=== PATIENT | male | born 1970 | race Caucasian/White ===

== ENCOUNTER 2023-10-22 08:30 | Outpatient (REF) | payer OTHER, SELFPAY ==
[2023-10-22 10:14] LABS: MANUAL DIFF FLAG NO
[2023-10-22 10:42] LABS: Basophils Absolute Auto 0.1 X10*3/uL (0.0-0.2); Basophils Percent Auto 0.6 % (0-2); Eosinophils Absolute Auto 0.2 X10*3/uL (0.0-0.4); Eosinophils Percent Auto 2.8 % (0-4); Hematocrit 46.3 % (42.0-52.0); Hemoglobin 16.5 g/dl (14.0-18.0); Imm Gran Abs Auto 0.02 X10*3/uL (0.00-0.03); Imm Gran Pct Auto 0.3 % (0.0-0.4); Lymphocytes Percent Auto 37.8 % (20-40); Mean Corpuscular HGB Conc 35.6 g/dl (31.0-36.0); Mean Corpuscular Hemoglobin 31.9 pg (27.0-33.0); Mean Corpuscular Volume 89.4 fL (80.0-98.0); Mean Platelet Volume 9.1 fL (9.4-12.4); Monocytes Absolute Auto 0.6 X10*3/uL (0.1-1.2); Monocytes Percent Auto 8.1 % (2-11); Neutrophils Absolute Auto 3.9 x10*3/uL (2.0-8.3); Neutrophils Percent Auto 50.4 % (45-73); Platelet Count 239 X10*3/uL (160-400); Red Blood Count 5.18 X10*6/uL (4.60-5.80); White Blood Count 7.8 X10*3/uL (4.8-10.8)
[2023-10-22 11:33] LABS: Alanine Aminotransferase 15 U/L (0-40); Albumin Level 4.2 g/dL (3.5-5.0); Alkaline Phosphatase 91 U/L (39-117); Anion Gap 13 (12-20); Aspartate Amino Transferase 14 U/L (5-37); Bilirubin Total 0.6 mg/dL (0.0-1.0); Blood Urea Nitrogen 6 mg/dL (9-16); Calcium 9.3 mg/dL (8.4-10.2); Carbon Dioxide 26 mmol/L (22-29); Chloride 106 mmol/L (96-108); Estimated Glomerular Filt Rate > 60; Glucose Random 81 mg/dL (60-115); Potassium 3.6 mmol/L (3.3-5.1); Sodium 141 mmol/L (135-145); Total Protein 7.6 g/dL (6.5-8.0)
[2023-10-23 19:14] LABS: Transglutaminase Ab IgG <1.0 U/mL; Transglutaminase IgA <1.0 U/mL
== END 2023-10-22 08:31 | disposition home or self-care (01) ==
LOC: HO.LAB 08:30
PROVIDERS: PCP Internal Medicine; Visit Provider Nurse Practitioner
DX: Z01.818 Encounter for other preprocedural examination (principal); Z91.09 Other allergy status, other than to drugs and biological substances
CPT/HCPCS: 36415; 80053; 85025; 86003; 86364

== ENCOUNTER 2023-10-22 08:30 | Outpatient (AMB) | payer OTHER, SELFPAY ==
--- NOTE | 2023-10-22 08:39 | MHC.OFFVIS ---
Vital Signs 10/22/23 08:40 Height 5 ft 10 in Weight 230 lb 9.656 oz BMI 33.1 BP 152/79 H Blood Pressure Location Lt brachial Position Sitting Pulse 93 Pulse Oximetry (%) 100 Intake Visit Reasons: Colonoscopy Screening Intake Note: Clifton presents in office today for colonoscopy screening. CC: Patient states that he has always had problems with diarrhea, especially in the mornings. He also reports seeing blood sometimes when he wipes, and occasional rectal pain and burning if I go too much or I have a large BM . He also c/o a lot of pain from my intestines , and acid reflux. 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 She is referred by Cruzito Rondon MD in [facility]. P.m. X Bipolar disorder Smoker OCD/anxiety GERD with soda RA ? Hx gallstone pancreatitis Intestinal problems in childhood ? wheat allergy Reiters syndrome Prostate problems. w ? sepsis HTN High cholesterol in past * SURGICAL HISTORY Tympanostomy tubes Tonsillectomy Cholecystectomy Pancreatic sphincterotomy * ALLERGIES Penicillin Gabapentin Paxil * [employer] LABS: None in our system TODAY'S VISIT This is a gentleman referred to us for screening colonoscopy but presents with multiple other medical concerns and problems along with a very incomplete history and a great deal of health anxiety. 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 He just moved up here from [place] to be with his sister. He has a hx of gallstone pancreatitis with removal and he is a preemie. He was allergic to wheat as a child. Since childhood he had pain across the lower abd, but this dissipated as an adult. Currently, he swings from passing small pellets in his stools to severe diarrhea. He also feels like he sweats in the buttock/rectal area but when he wipes he sees a mucus like blood. This is worse when he exerts himself, terrie when he walks for long periods of time. He has a long hx of multiple medical issues including prostatitis that he says developed in to Reiters syndrome and what sounds like sepsis. He has allergies to OJ, wheat, chocolate, sodium benzoate. He has been dieting to lose weight recently because he gained a lot of weight on zoloft. He has lost 30 lbs. This will be his 1st colonoscopy. He denies any cardiac or respiratory problems. His mother had trouble with hypotension with anesthesia, but he has not had any similar problem so far. No ID problems His mother has a hx of TA at age 78 that occluded her rectum. Trial of creon since he his some CIC, food allergy testing, ROV 6 weeks. I am concerned about giving him something more potent for diarrhea because he does seem to have an element of constipation we do not want to make this worse. Return office visit in 6 weeks to evaluate his response. [facility] Medical History (Updated 10/22/23 @ 17:01 by JUDY Nowak) Prematurity, weight 500-749 grams, with less than 24 completed weeks of gestation History of sepsis Gallstone pancreatitis Surgical History (Updated 10/22/23 @ 17:01 by JUDY Nowak) History of sphincterotomy of sphincter of Oddi History of cholecystectomy Hx of tonsillectomy Hx of tympanostomy tubes Family History Mother Diverticulitis Father Diverticulosis Colitis Paternal Aunt Breast cancer Maternal Aunt Cancer Social History Alcohol intake: current Alcohol intake frequency: holidays/special occasions only Patient Tobacco Use Status: Current everyday Tobacco user Tobacco use type: Cigarette Review of Systems Const Denies fatigue, Denies fever(s), Denies night sweats, Denies poor appetite and Reports weight loss (Intentional dieting) Eyes Details: glasses Reports requires corrective lenses ENT Reports Normal hearing present, Denies dental pain, Denies dysphagia, Denies hearing loss, Denies mouth pain, Denies odynophagia, Denies throat swelling, Denies tongue swelling and Reports other (Dentition adequate) Card Reports no additional complaints Resp Reports no additional complaints GI Details: Denies abdominal pain, Denies melena, Reports bloating, Denies hematochezia, Reports constipation, Denies GI cramping, Denies dysphagia, Denies excessive flatus, Denies early satiety, Denies heartburn, Reports diarrhea, Denies nausea, Denies odynophagia, Denies vomiting and Denies hematemesis Skin/Breast Denies pruritus, Denies lesions, Denies rash and Denies jaundice Neuro Reports Normal hearing present and Denies Abnormal speech present Psych Reports anxiety Endo Denies fatigue Aller/Immun Denies throat swelling and Denies tongue swelling Physical Exam Vital Signs: Last Vital Signs Pulse 93 10/22/23 08:40 BP 152/79 H 10/22/23 08:40 Pulse Ox 100 10/22/23 08:40 BMI result Body Mass Index 33.1 Const General: cooperative, no acute distress, well developed and well groomed Nutritional Appearance: well nourished and obese Orientation/consciousness: oriented to person, oriented to place and oriented to time Limitations: No language barrier HEENT Head: Yes normocephalic and Yes atraumatic Eyes General: appearance normal, both eyes and all related structures Pupils: Equal, round and reactive pupils present Neck Neck: Yes normal visual inspection and Yes no lymphadenopathy Thyroid: Thyroid normal Resp Effort & Inspection: normal respiratory effort and able to speak in complete sentences Auscultation: clear to auscultation bilaterally Cardio Rate: regular rate Rhythm: regular rhythm Heart sounds: Normal, physiologic split S2 sound present Peripheral pulses: radial pulses present and posterior tibial pulses present GI Inspection: No distended, No Abdominal panniculus present and Yes obesity Palpation (GI): Soft to palpation, nontender, no guarding, not rigid and No hepatosplenomegaly present Percussion: Yes normal to percussion Auscultation: normal bowel sounds Rectal Exam - Male: Yes deferred Skin General skin exam: no rashes or lesions noted, turgor normal, skin not dry, no jaundice, No spider nevi and no striae Rashes: no rashes Nails: normal Neuro General: oriented to person, oriented to place and oriented to time Cranial nerves: Yes Equal, round and reactive pupils present and Yes Normal hearing present Speech: No Abnormal speech present Extrem General: Yes normal to inspection, No clubbing, No cyanosis and No edema Psych Appearance: grossly normal and well kempt Mental Status: mental status grossly normal Speech and movement: Normal speech and movement present Affect: normal affect Attitude: cooperative Thought process: Normal thought process present, not confabulating and Perseverating thought process present Thought content: Normal thought content present Insight: Fair insight present (Psych) and Limited insight present (Psych) Judgement: Fair judgement present (Psych) and Limited judgement present (Psych) Assessment & Plan Assessment & Plan (1) Pre-op examination: Code(s): Z01.818 - Encounter for other preprocedural examination Category: Medical (2) Irritable bowel syndrome with both constipation and diarrhea: Code(s): K58.2 - Mixed irritable bowel syndrome Category: Medical Plan This is a gentleman referred to us for screening colonoscopy but presents with multiple other medical concerns and problems along with a very incomplete history and a great deal of health anxiety. 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 He just moved up here from [place] to be with his sister. He has a hx of gallstone pancreatitis with removal and he is a preemie. He was allergic to wheat as a child. Since childhood he had pain across the lower abd, but this dissipated as an adult. Currently, he swings from passing small pellets in his stools to severe diarrhea. He also feels like he sweats in the buttock/rectal area but when he wipes he sees a mucus like blood. This is worse when he exerts himself, terrie when he walks for long periods of time. He has a long hx of multiple medical issues including prostatitis that he says developed in to Reiters syndrome and what sounds like sepsis. He has allergies to OJ, wheat, chocolate, sodium benzoate. He has been dieting to lose weight recently because he gained a lot of weight on zoloft. He has lost 30 lbs. This will be his 1st colonoscopy. He denies any cardiac or respiratory problems. His mother had trouble with hypotension with anesthesia, but he has not had any similar problem so far. No ID problems His mother has a hx of TA at age 78 that occluded her rectum. Trial of creon since he his some CIC, food allergy testing, ROV 6 weeks. I am concerned about giving him something more potent for diarrhea because he does seem to have an element of constipation we do not want to make this worse. Return office visit in 6 weeks to evaluate his response. Orders: Orders Complete Blood Count Auto Diff 10/22/23 Z - Encounter for other preprocedural examination Transglutaminase IgA 10/22/23 Z.8 - Encounter for other preprocedural examination Rast Allergen 10/22/23 - Encounter for other preprocedural examination Comprehensive Met. Panel 10/22/23 - Encounter for other preprocedural examination Colonoscopy - GI Use Only 10/22/23 - Encounter for other preprocedural examination Transglutaminase Ab IgG 10/22/23 Z - Encounter for other preprocedural examination Medications: New sodium,potassium,mag sulfates 17.5-3.13-1.6 gram (Suprep Bowel Prep Kit) 480 mL orally; 354 mL 0RF Z - Encounter for other preprocedural examination [id number] 36,000-114,000- 180,000 unit (Creon) administer with meals and/or snacks 2 caps PO BID 120 caps 3RF K58.2 - Mixed irritable bowel syndrome Coding Level of Care Code New Pt Level 3 (45802) Diagnoses Pre-op examination Z.81 Irritable bowel syndrome with both constipation and diarrhea K58.2
[2023-10-22 08:40] VITALS: BP 152/79; PULSE 93; O2SAT 100; BMI 33.1
== END 2023-10-22 09:48 | disposition home or self-care (01) ==
PROVIDERS: PCP Internal Medicine; Visit Provider Nurse Practitioner
DX: Z01.818 Encounter for other preprocedural examination (principal); Z12.11 Encounter for screening for malignant neoplasm of colon; K58.2 Mixed irritable bowel syndrome; Z83.719 Family history of colon polyps, unspecified
CPT/HCPCS: S0285

== ENCOUNTER 2023-12-03 08:57 | Outpatient (AMB) | payer OTHER, SELFPAY ==
--- NOTE | 2023-12-03 09:25 | MHC.OFFVIS ---
Vital Signs 12/03/23 09:47 Height 5 ft 10 in Weight 234 lb 2.095 oz BMI 33.6 BP 137/73 Blood Pressure Location Rt brachial Position Sitting Pulse 74 Pulse Source Pulse Oximeter Intake Visit Reasons: 6 weeks follow up Intake Note: Patient in office today in 6 weeks follow up of IBS. CC: Patient states that he is feeling better after starting Creon. He reports constipation some days and diarrhea others. 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 Accompanied by: Self / Same As Patient Allergies cefadroxil [From Duricef] Allergy (Severe, Verified 12/03/23 09:49) Anaphylaxis paroxetine [From Paxil] Allergy (Severe, Verified 12/03/23 09:49) Swelling Penicillins Allergy (Severe, Verified 12/03/23 09:49) Hives gabapentin Allergy (Unknown, Verified 12/03/23 09:49) Rage SSRI Allergy (Severe, Uncoded 10/22/23 08:49) Swelling HPI HPI 6 weeks follow up: Details: Assessment & Plan (1) Pre-op examination: Code(s): Z01.818 - Encounter for other preprocedural examination Category: Medical (2) Irritable bowel syndrome with both constipation and diarrhea: Code(s): K58.2 - Mixed irritable bowel syndrome Category: Medical Plan This is a gentleman referred to us for screening colonoscopy but presents with multiple other medical concerns and problems along with a very incomplete history and a great deal of health anxiety. 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 He just moved up here from [place] to be with his sister. He has a hx of gallstone pancreatitis with removal and he is a preemie. He was allergic to wheat as a child. Since childhood he had pain across the lower abd, but this dissipated as an adult. Currently, he swings from passing small pellets in his stools to severe diarrhea. He also feels like he sweats in the buttock/rectal area but when he wipes he sees a mucus like blood. This is worse when he exerts himself, terrie when he walks for long periods of time. He has a long hx of multiple medical issues including prostatitis that he says developed in to Reiters syndrome and what sounds like sepsis. He has allergies to OJ, wheat, chocolate, sodium benzoate. He has been dieting to lose weight recently because he gained a lot of weight on zoloft. He has lost 30 lbs. This will be his 1st colonoscopy. He denies any cardiac or respiratory problems. His mother had trouble with hypotension with anesthesia, but he has not had any similar problem so far. No ID problems His mother has a hx of TA at age 78 that occluded her rectum. Trial of creon since he his some CIC, food allergy testing, ROV 6 weeks. I am concerned about giving him something more potent for diarrhea because he does seem to have an element of constipation we do not want to make this worse. Return office visit in 6 weeks to evaluate his response. Orders: Orders Complete Blood Count Auto Diff 10/22/23 Z.818 - Encounter for other preprocedural examination Transglutaminase IgA 10/22/23 Z.818 - Encounter for other preprocedural examination Rast Allergen 10/22/23 Z.818 - Encounter for other preprocedural examination Comprehensive Met. Panel 10/22/23 Z818 - Encounter for other preprocedural examination Colonoscopy - GI Use Only 10/22/23 Z.818 - Encounter for other preprocedural examination Transglutaminase Ab IgG 10/22/23 Z.818 - Encounter for other preprocedural examination Medications: New sodium,potassium,mag sulfates 17.5-3.13-1.6 gram (Suprep Bowel Prep Kit) 480 mL orally; 354 mL 0RF Z.818 - Encounter for other preprocedural examination [id number] 36,000-114,000- 180,000 unit (Creon) administer with meals and/or snacks 2 caps PO BID 120 caps 3RF K58.2 - Mixed irritable bowel syndrome LABS Laboratory Tests 10/22/23 10:10 WBC 7.8 Hgb 16.5 Hct 46.3 Plt Count 239 Estimated GFR > 60 Total Bilirubin 0.6 AST 14 ALT 15 Alkaline Phosphatase 91 Tiss Transglutamin IgG <1.0 Tiss Transglutamin IgA <1.0 RAST PANEL SHOWS NO SIGNIFICANT FOOD ALLERGY COLONOSCOPY BIOPSY TODAYS VISIT He continues on the Creon but now he is having more constipation. I think will add senna a night to give him some gentle relief. We review all the test to does not seem to show any severe concerns of food allergies. He has not yet heard about scheduling the colonoscopy. Return office visit in 5 weeks to evaluate his response [facility] Medical History Prematurity, weight 500-749 grams, with less than 24 completed weeks of gestation History of sepsis Gallstone pancreatitis Surgical History History of sphincterotomy of sphincter of Oddi History of cholecystectomy Hx of tonsillectomy Hx of tympanostomy tubes Family History Mother Diverticulitis Father Diverticulosis Colitis Paternal Aunt Breast cancer Maternal Aunt Cancer Social History Alcohol intake: current Alcohol intake frequency: holidays/special occasions only Patient Tobacco Use Status: Current everyday Tobacco user Tobacco use type: Cigarette Review of Systems Const Denies fatigue, Denies fever(s), Denies night sweats, Denies poor appetite and Denies weight loss Eyes Details: glasses Reports requires corrective lenses ENT Reports Normal hearing present, Denies dental pain, Denies dysphagia, Denies hearing loss, Denies mouth pain, Denies odynophagia, Denies throat swelling, Denies tongue swelling and Reports other (Dentition adequate) Card Reports no additional complaints Resp Reports no additional complaints GI Details: Denies abdominal pain, Denies melena, Reports bloating, Denies hematochezia, Reports constipation, Denies GI cramping, Denies dysphagia, Denies excessive flatus, Denies early satiety, Denies heartburn, Reports diarrhea, Denies nausea, Denies odynophagia, Denies vomiting and Denies hematemesis Skin/Breast Denies pruritus, Denies lesions, Denies rash and Denies jaundice Neuro Reports Normal hearing present and Denies Abnormal speech present Endo Denies fatigue Aller/Immun Denies throat swelling and Denies tongue swelling Physical Exam Vital Signs: Last Vital Signs Pulse 74 12/03/23 09:47 BP 137/73 12/03/23 09:47 BMI result Body Mass Index 33.6 Const General: cooperative, no acute distress, well developed and well groomed Nutritional Appearance: well nourished and obese Orientation/consciousness: oriented to person, oriented to place and oriented to time Limitations: No language barrier HEENT Head: Yes normocephalic and Yes atraumatic Eyes General: appearance normal, both eyes and all related structures Pupils: Equal, round and reactive pupils present Neck Neck: Yes normal visual inspection and Yes no lymphadenopathy Thyroid: Thyroid normal Resp Effort & Inspection: normal respiratory effort and able to speak in complete sentences Auscultation: clear to auscultation bilaterally Cardio Rate: regular rate Rhythm: regular rhythm Heart sounds: Normal, physiologic split S2 sound present Peripheral pulses: radial pulses present and posterior tibial pulses present GI Inspection: No distended, No Abdominal panniculus present and Yes obesity Palpation (GI): Soft to palpation, nontender, no guarding, not rigid and No hepatosplenomegaly present Percussion: Yes normal to percussion Auscultation: normal bowel sounds Rectal Exam - Male: Yes deferred Skin General skin exam: no rashes or lesions noted, turgor normal, skin not dry, no jaundice, No spider nevi and no striae Rashes: no rashes Nails: normal Neuro General: oriented to person, oriented to place and oriented to time Cranial nerves: Yes Equal, round and reactive pupils present and Yes Normal hearing present Speech: No Abnormal speech present Extrem General: Yes normal to inspection, No clubbing, No cyanosis and No edema Psych Appearance: grossly normal and well kempt Mental Status: mental status grossly normal Speech and movement: Normal speech and movement present Affect: Anxious affect present Attitude: cooperative Thought process: Normal thought process present and not confabulating Thought content: Normal thought content present Insight: Limited insight present (Psych) Judgement: Limited judgement present (Psych) Assessment & Plan Assessment & Plan (1) Irritable bowel syndrome with both constipation and diarrhea: Code(s): K58.2 - Mixed irritable bowel syndrome Category: Medical Plan He continues on the Creon but now he is having more constipation. I think will add senna a night to give him some gentle relief. We review all the test to does not seem to show any severe concerns of food allergies. He has not yet heard about scheduling the colonoscopy. Return office visit in 5 weeks to evaluate his response Medications: New sennosides (Senna Laxative) 17.2 mg (2 x 8.6 mg) PO BEDTIME 60 tabs 6RF K58.2 - Mixed irritable bowel syndrome Coding Level of Care Code Est Pt Level 3 (33280) Diagnoses Irritable bowel syndrome with both constipation and diarrhea K58.2
[2023-12-03 09:47] VITALS: BP 137/73; PULSE 74; BMI 33.6
== END 2023-12-03 10:30 | disposition home or self-care (01) ==
PROVIDERS: PCP Internal Medicine; Visit Provider Nurse Practitioner
DX: K58.2 Mixed irritable bowel syndrome (principal)
CPT/HCPCS: 99213

== ENCOUNTER 2023-12-03 08:57 | Outpatient (REF) | payer OTHER, SELFPAY ==
[2023-12-03 12:06] LABS: Cholesterol 226 mg/dL (<200); HDL Cholesterol 48 mg/dL (>40); LDL Cholesterol Calculated 150 mg/dL (<100); Triglycerides 141 mg/dL (<150)
== END 2023-12-03 08:58 | disposition home or self-care (01) ==
LOC: HO.LAB 08:57
PROVIDERS: Absent Provider Internal Medicine; PCP Internal Medicine; Visit Provider Nurse Practitioner
DX: Z00.00 Encounter for general adult medical examination without abnormal findings (principal); K58.2 Mixed irritable bowel syndrome; Z13.6 Encounter for screening for cardiovascular disorders
CPT/HCPCS: 36415; 80061

== ENCOUNTER 2024-01-09 08:28 | Outpatient (AMB) | payer OTHER, SELFPAY ==
--- NOTE | 2024-01-09 08:38 | A.OFFVIS_ITS ---
Vital Signs 01/09/24 08:48 Height 5 ft 10 in Weight 233 lb BMI 33.4 BP 124/60 Blood Pressure Location Lt brachial Position Sitting Pulse 88 Intake Visit Reasons: 5 week follow up Intake Note: Patient follow up for IBS. Patient cc: dizziness and his week a lot of BM. Denies any other GI issues. Health And Safety Director Required: No Accompanied by: Self / Same As Patient Allergies cefadroxil [From Duricef] Allergy (Severe, Verified 01/09/24 08:53) Anaphylaxis paroxetine [From Paxil] Allergy (Severe, Verified 01/09/24 08:53) Swelling Penicillins Allergy (Severe, Verified 01/09/24 08:53) Hives gabapentin Allergy (Unknown, Verified 01/09/24 08:53) Rage SSRI Allergy (Severe, Uncoded 10/22/23 08:49) Swelling HPI HPI 5 week follow up: Details: Assessment & Plan (1) Irritable bowel syndrome with both constipation and diarrhea: Code(s): K58.2 - Mixed irritable bowel syndrome Category: Medical Plan He continues on the Creon but now he is having more constipation. I think will add senna a night to give him some gentle relief. We review all the test to does not seem to show any severe concerns of food allergies. He has not yet heard about scheduling the colonoscopy. Return office visit in 5 weeks to evaluate his response Medications: New sennosides (Senna Laxative) 17.2 mg (2 x 8.6 mg) PO BEDTIME 60 tabs 6RF K58.2 - Mixed irritable bowel syndrome COLONOSCOPY BIOPSY CORRESPONDENCE On 12/03/23 @ 10:27 Katja Arias Wrote To [facility] lvm, added to spread sheet. On 12/03/23 @ 10:13 Katja Arias Wrote To [facility] Katja Arias completed item. On 12/03/23 @ 10:12 Amber Dejesus Wrote To [facility] Ordering Provider: [B] Provider Performing Procedure: [] Medical Clearance: [] Procedure and CPT: [screening, diarrhea] Anesthesia: [] Time Needed: [] Equipment: [] Order Medications: [] Medications to be Held Prior to Surgery (GLP1-Semaglutide, Dulaglutide, Liraglutide, Exenatide, Tirzepatide, Lixisenatide)(DPP4-Sitigliptin, Saxagliptin, Linagliptan, Alogliptan): [no] TODAY'S VISIT He says he has no messages from our schedulers. He is doing better on the Creon, no as sick as I was before. He is happy with this. He has been drinking more water, r/t the heat, and this will give him occasional diarrhea and fecal incontinence. He says his mother is the same, and he does not feel he needs any help with this. He has not had a message re: colonoscopy. He has upcoming foot surgery. He also has some troubles dealing with workmen's comp so he has a lot on his plate in the short term. ROv 3 mos. PFSH Medical History Prematurity, weight 500-749 grams, with less than 24 completed weeks of gestation History of sepsis Gallstone pancreatitis Surgical History History of sphincterotomy of sphincter of Oddi History of cholecystectomy Hx of tonsillectomy Hx of tympanostomy tubes Family History Mother Diverticulitis Father Diverticulosis Colitis Paternal Aunt Breast cancer Maternal Aunt Cancer Social History Alcohol intake: current Alcohol intake frequency: holidays/special occasions only Patient Tobacco Use Status: Current everyday Tobacco user Tobacco use type: Cigarette Review of Systems Const Denies fatigue, Denies fever(s), Denies night sweats, Denies poor appetite and Denies weight loss Eyes Details: glasses Reports requires corrective lenses ENT Reports Normal hearing present, Denies dental pain, Denies dysphagia, Denies hearing loss, Denies mouth pain, Denies odynophagia, Denies throat swelling, Denies tongue swelling and Reports other (Dentition adequate) Card Reports no additional complaints Resp Reports no additional complaints GI Details: Denies abdominal pain, Denies melena, Reports bloating, Denies hematochezia, Reports constipation, Denies GI cramping, Denies dysphagia, Denies excessive flatus, Denies early satiety, Denies heartburn, Reports diarrhea, Denies nausea, Denies odynophagia, Denies vomiting and Denies hematemesis Skin/Breast Denies pruritus, Denies lesions, Denies rash and Denies jaundice Neuro Reports Normal hearing present and Denies Abnormal speech present Endo Denies fatigue Aller/Immun Denies throat swelling and Denies tongue swelling Physical Exam Vital Signs: Last Vital Signs Pulse 88 01/09/24 08:48 BP 124/60 01/09/24 08:48 BMI result Body Mass Index 33.4 Const General: cooperative, no acute distress, well developed and well groomed Nutritional Appearance: well nourished and obese centrally obese Orientation/consciousness: oriented to person, oriented to place and oriented to time Limitations: No language barrier HEENT Head: Yes normocephalic and Yes atraumatic Eyes General: appearance normal, both eyes and all related structures Pupils: Equal, round and reactive pupils present Neck Neck: Yes normal visual inspection and Yes no lymphadenopathy Thyroid: Thyroid normal Resp Effort & Inspection: normal respiratory effort and able to speak in complete sentences Auscultation: clear to auscultation bilaterally Cardio Rate: regular rate Rhythm: regular rhythm Heart sounds: Normal, physiologic split S2 sound present Peripheral pulses: radial pulses present and posterior tibial pulses present GI Inspection: No distended, No Abdominal panniculus present and Yes obesity Palpation (GI): Soft to palpation, nontender, no guarding, not rigid and No hepatosplenomegaly present Percussion: Yes normal to percussion Auscultation: normal bowel sounds Rectal Exam - Male: Yes deferred Skin General skin exam: no rashes or lesions noted, turgor normal, skin not dry, no jaundice, No spider nevi and no striae Rashes: no rashes Nails: normal Neuro General: oriented to person, oriented to place and oriented to time Cranial nerves: Yes Equal, round and reactive pupils present and Yes Normal hearing present Speech: No Abnormal speech present Extrem General: Yes normal to inspection, No clubbing, No cyanosis and No edema Psych Appearance: grossly normal and well kempt Mental Status: mental status grossly normal Speech and movement: Normal speech and movement present Affect: normal affect Attitude: cooperative Thought process: Normal thought process present and not confabulating Thought content: Normal thought content present Insight: Limited insight present (Psych) Judgement: Limited judgement present (Psych) Assessment & Plan Assessment & Plan (1) Irritable bowel syndrome with both constipation and diarrhea: Code(s): K58.2 - Mixed irritable bowel syndrome Category: Medical (2) Multiple food allergies: Comment: PATIENT REPORTS ALLERGIES TO WHEAT, ORANGE JUICE, CHOCOLATE AND SODIUM BENZOATE Code(s): Z91.018 - Allergy to other foods Category: Medical Plan He says he has no messages from our schedulers. He is doing better on the Creon, no as sick as I was before. He is happy with this. He has been drinking more water, r/t the heat, and this will give him occasional diarrhea and fecal incontinence. He says his mother is the same, and he does not feel he needs any help with this. He has not had a message re: colonoscopy. He has upcoming foot surgery. He also has some troubles dealing with workmen's comp so he has a lot on his plate in the short term. ROv 3 mos. Coding Level of Care Code Est Pt Level 3 (07716) Diagnoses Irritable bowel syndrome with both constipation and diarrhea K58.2 Multiple food allergies Z91.018
[2024-01-09 08:48] VITALS: BP 124/60; PULSE 88; BMI 33.4
== END 2024-01-09 09:54 | disposition home or self-care (01) ==
PROVIDERS: PCP Internal Medicine; Visit Provider Nurse Practitioner
DX: K58.2 Mixed irritable bowel syndrome (principal); Z91.018 Allergy to other foods
CPT/HCPCS: 99213

== ENCOUNTER → 2024-01-09 08:28 | Outpatient (BNVA) | payer OTHER, SELFPAY | PROVIDERS: PCP Internal Medicine; Visit Provider Nurse Practitioner ==

== ENCOUNTER 2024-01-30 11:31 | Day surgery (SDC) | payer OTHER, SELFPAY ==
--- NOTE | 2024-01-29 09:21 | P.CONAN_ITS ---
Documented by User: Sarina Castro NP 01/29/24 09:22 HPI - Anesthesia Eval Consult details Narrative: 53yo M for Colonoscopy PMFSH Active Problems Active Problems: All Active Problems Family history of polyps in the colon (Acute) Multiple food allergies (Acute) High cholesterol (Acute) Hypertension (Acute) Prostatitis (Acute) Wyatt's disease (Acute) Anxiety (Acute) OCD (obsessive compulsive disorder) (Acute) Irritable bowel syndrome with both constipation and diarrhea (Acute) Pre-op examination (Acute) Smoker (Acute) Bipolar disorder (Acute) Past Medical History Medical History Prematurity, weight 500-749 grams, with less than 24 completed weeks of gestation History of sepsis Gallstone pancreatitis Family History Family History Mother Diverticulitis Father Diverticulosis Colitis Paternal Aunt Breast cancer Maternal Aunt Cancer Surgical History Surgical History History of sphincterotomy of sphincter of Oddi History of cholecystectomy Hx of tonsillectomy Hx of tympanostomy tubes Social History Social History Alcohol intake: current Alcohol intake frequency: holidays/special occasions only Patient Tobacco Use Status: Current everyday Tobacco user Tobacco use type: Cigarette Advance Directives: No Advance Directives Information Provided: Yes Meds Allergies Allergy/AdvReac Type Severity Reaction Status Date / Time cefadroxil [From Duricef] Allergy Severe Anaphylaxis Verified 01/09/24 08:53 paroxetine [From Paxil] Allergy Severe Swelling Verified 01/09/24 08:53 Penicillins Allergy Severe Hives Verified 01/09/24 08:53 gabapentin Allergy Unknown Rage Verified 01/09/24 08:53 SSRI Allergy Severe Swelling Uncoded 10/22/23 08:49 Home Medications ?Medication ?Instructions ?Recorded ?Confirmed ?Last Taken ?Type tamsulosin 0.4 mg capsule 0.4 mg PO DAILY 10/22/23 Unknown History carbamide peroxide 6.5 % ear drops 5 drp otic (ear) left Q12H 12/03/23 Unknown History (Debrox) cholecalciferol (vitamin D3) 50 50 mcg PO DAILY 12/03/23 Unknown History mcg (2,000 unit) capsule rizatriptan 10 mg tablet See Rx Instructions PO .COMPLEX 12/03/23 Unknown History ezetimibe 10 mg tablet (Zetia) 10 mg PO DAILY 01/09/24 Unknown History lisinopril 10 mg tablet 10 mg PO DAILY 01/09/24 Unknown History mirtazapine 15 mg tablet (Remeron) 15 mg PO DAILY 01/09/24 Unknown History rosuvastatin 10 mg tablet 10 mg PO DAILY 01/09/24 Unknown History Exam Pertinent Lab Results Pertinent Lab Results: Laboratory Tests 10/22/23 10:10 WBC 7.8 Hgb 16.5 Hct 46.3 Plt Count 239 Sodium 141 Potassium 3.6 Chloride 106 Carbon Dioxide 26 BUN 6 L Creatinine 1.03 Assessment and Plan Assessment Anesthesia Assessment: Chart Reviewed Documented by User: Manda Núñez MD 01/30/24 12:18 ON LICENSE OF [facility] Past Medical History Medical History Prematurity, weight 500-749 grams, with less than 24 completed weeks of gestation History of sepsis Gallstone pancreatitis Family History Family History Mother Diverticulitis Father Diverticulosis Colitis Paternal Aunt Breast cancer Maternal Aunt Cancer Family history of problems with anesthesia: No Surgical History Surgical History History of sphincterotomy of sphincter of Oddi History of cholecystectomy Hx of tonsillectomy Hx of tympanostomy tubes History of Problems with Anesthesia: No Social History Social History Alcohol intake: current Alcohol intake frequency: holidays/special occasions only Patient Tobacco Use Status: Current everyday Tobacco user Tobacco use type: Cigarette Advance Directives: No Advance Directives Information Provided: Yes Meds Allergies Allergy/AdvReac Type Severity Reaction Status Date / Time cefadroxil [From Duricef] Allergy Severe Anaphylaxis Verified 01/09/24 08:53 paroxetine [From Paxil] Allergy Severe Swelling Verified 01/09/24 08:53 Penicillins Allergy Severe Hives Verified 01/09/24 08:53 gabapentin Allergy Unknown Rage Verified 01/09/24 08:53 SSRI Allergy Severe Swelling Uncoded 10/22/23 08:49 Home Medications ?Medication ?Instructions ?Recorded ?Confirmed ?Last Taken ?Type tamsulosin 0.4 mg capsule 0.4 mg PO DAILY 10/22/23 Unknown History carbamide peroxide 6.5 % ear drops 5 drp otic (ear) left Q12H 12/03/23 Unknown History (Debrox) cholecalciferol (vitamin D3) 50 50 mcg PO DAILY 12/03/23 Unknown History mcg (2,000 unit) capsule rizatriptan 10 mg tablet See Rx Instructions PO .COMPLEX 12/03/23 Unknown His tory ezetimibe 10 mg tablet (Zetia) 10 mg PO DAILY 01/09/24 Unknown History lisinopril 10 mg tablet 10 mg PO DAILY 01/09/24 Unknown History mirtazapine 15 mg tablet (Remeron) 15 mg PO DAILY 01/09/24 Unknown History rosuvastatin 10 mg tablet 10 mg PO DAILY 01/09/24 Unknown History Exam Airway Mallampati Class: II (missing multiple teeth, poor dentition) TM Dist: >3cm Neck ROM: Full Heart: rrr Lungs: cta Assessment and Plan Assessment Anesthesia Assessment: Anesthesia Plan Discussed Final Anesthetic Review Family History of Problems with Anesthesia: No History of Problems with Anesthesia: No NPO: Yes ASA Class: III Final Preanesthetic Review: No Changes in Pt Med Stat, Meds/Allgs Chart Reviewed and Consent Obtained/Reviewed Patient Risk: Low Procedure Risk: Low Anesthetic Plan Anesthetic Plan: MAC: Disposition: Standard PACU
[2024-01-30 12:25] VITALS: BMI 32.8
--- NOTE | 2024-01-30 12:26 | MHC.SHP ---
Pre-Procedural Eval Section A - 24 Hr Update-Section A only Date of Service: 01/30/24 The patient is an INPATIENT: No The patient has been examined within 24 hours of the surgical procedure. The History & Physical has been completed within 30 days and I have reviewed it.: Yes Section B - Complete if H&P > 30 days Chief Complaint: screening, IBS Allergies: Allergies Allergy/AdvReac Type Severity Reaction Status Date / Time cefadroxil [From Duricef] Allergy Severe Anaphylaxis Verified 01/09/24 08:53 paroxetine [From Paxil] Allergy Severe Swelling Verified 01/09/24 08:53 Penicillins Allergy Severe Hives Verified 01/09/24 08:53 gabapentin Allergy Unknown Rage Verified 01/09/24 08:53 SSRI Allergy Severe Swelling Uncoded 10/22/23 08:49 Review of Systems Sugical H&P ROS: Negative: Constitution, Cardiovascular, Respiratory and Gastrointestinal Exam Surgical H&P Exam: Normal: Heart, Normal: Lungs, Normal: Extremities and Normal: Abdomen Plan Diagnosis/Plan: Unchanged I have reviewed the history and physical and performed a pertinent physical examination on my patient. No changes have occurred unless specified. Time Spent With Patient Time: Total time managing care of this patient today ____ minutes.
[2024-01-30 12:27] VITALS: BP 130/81; PULSE 70; RESP 16; TEMP 36.4; O2SAT 100
[2024-01-30] MEDS: Lactated Ringers 1,000 ML 100 ML IVCONT (12:47)
--- NOTE | 2024-01-30 14:41 | P.OPN-COLO_ITS ---
Colonoscopy Operative Note Operative Note Date of Service: 01/30/24 Narrative: COLONOSCOPY TILL CECUM WITH BIOPSIES AND SNARE POLYPECTOMY Pre-op diagnosis: Colon cancer screening (First colonoscopy). Post-op diagnosis:? Colon polyps, Diverticulosis, hemorrhoids Endoscopist:? Colin Enriquez MD Anesthesia:?MAC Consent: Indications for the procedure and potential complications of bleeding, perforation, reaction to medications and missed diagnosis were discussed with the patient and informed consent was obtained. Instrument: Olympus CF H 190 L variable stiffness adult colonoscope Monitoring: Vital signs and clinical assessment, intermittent blood pressure monitoring, continuous EKG monitoring, Pulse oximetry and Carbon Dioxide monitoring were done throughout the procedure. Please see anesthesia flowsheet. Colon withdrawl time was 16 minutes. Procedure: The patient was placed in the left lateral decubitis position and pre-procedure medications were administered. After a digital rectal examination of the ano-rectum, the video colonoscope was inserted into the rectum and advanced through the colon to the cecum. The colonoscope was slowly withdrawn in a retrograde panoramic fashion and the colon mucosa was carefully examined including a retroflexed view of the rectum. Findings and interventions are described below. Procedure Difficulty: without difficulty Findings: Terminal Ileum: Not evaluated Cecum: Moderated scattered diverticulosis throughout the entire colon Ascending Colon: A 12 - 15 mm sessile polyp in the proximal ascending colon - removed with a hot snare. Moderated scattered diverticulosis throughout the entire colon Transverse Colon: A 15 to 18 mm sessile polyp in the proximal TC - removed with a hot snare. Moderated scattered diverticulosis throughout the entire colon Descending Colon: Moderate diverticulosis Sigmoid Colon: Moderate diverticulosis Rectum: A 4-5 mm sessile polyp - removed with a cold biopsy Ano-rectum: Small internal hemorrhoids Colon preparation: Good despite copious irrigation and fair in the right and transverse due to adherent stools which could not be flushed off [facility] Bowel Preparation Scale Right colon; 1 Transverse colon: 1 Left colon; 2 (0 = Unprepared colon segment with mucosa not seen due to solid stool that cannot be cleared. 1 = Portion of mucosa of the colon segment seen, but other areas of the colon segment not well seen due to staining, residual stool and/or opaque liquid. 2 = Minor amount of residual staining, small fragments of stool and/or opaque liquid, but mucosa of colon segment seen well. 3 = Entire mucosa of colon segment seen well with no residual staining, small fragments of stool or opaque liquid) Impression and Post Procedure Diagnosis: Colonoscopy Findings: One small and two medium sized polyps were removed Random biopsies were obtained right and left colon to check for microscopic colitis Moderate diverticulosis seen in the entire colon Small hemorrhoids on retroflexed exam. Plan: Pt has a FU appointment on 02/18/24 with Amber Dejesus NP Repeat Colonoscopy in 1-2 years if polyps are adenomatous and due to fair prep. Above findings were reviewed with the patient and relevant handouts were given and the discharge area.
[2024-01-30 14:45] VITALS: BP 93/55; PULSE 74; RESP 16; TEMP 36.1; O2SAT 98
[2024-01-30 15:00] VITALS: BP 114/81; PULSE 69; RESP 16; TEMP 36.1; O2SAT 99
== END 2024-01-30 15:17 | disposition home or self-care (01) ==
PROVIDERS: PCP Internal Medicine; Visit Provider Internal Medicine Gastroenterology
PROC: 0DJD8ZZ Inspection of Lower Intestinal Tract, Via Natural or Artificial Opening Endoscopic (ICD-10-PCS; CPT 45378; principal; 2024-01-30 13:10)
DX: Z12.11 Encounter for screening for malignant neoplasm of colon (principal); D12.3 Benign neoplasm of transverse colon; D12.2 Benign neoplasm of ascending colon; K62.1 Rectal polyp; K57.30 Diverticulosis of large intestine without perforation or abscess without bleeding; K64.8 Other hemorrhoids; Z83.719 Family history of colon polyps, unspecified; I10 Essential (primary) hypertension; E78.00 Pure hypercholesterolemia, unspecified; K58.2 Mixed irritable bowel syndrome; N40.0 Benign prostatic hyperplasia without lower urinary tract symptoms; F17.210 Nicotine dependence, cigarettes, uncomplicated; Z79.899 Other long term (current) drug therapy; Z79.02 Long term (current) use of antithrombotics/antiplatelets
CPT/HCPCS: 45385; 45380; 88305; J2704

== ENCOUNTER → 2024-01-30 11:31 | Outpatient (BNV) | payer OTHER, SELFPAY | PROVIDERS: PCP Internal Medicine; Visit Provider Internal Medicine Gastroenterology | DX: Z12.11 Encounter for screening for malignant neoplasm of colon (principal); K63.5 Polyp of colon; D12.8 Benign neoplasm of rectum; K57.90 Diverticulosis of intestine, part unspecified, without perforation or abscess without bleeding; K64.8 Other hemorrhoids | CPT/HCPCS: 45380; 45385 ==

== ENCOUNTER 2024-02-18 09:19 | Outpatient (AMB) | payer OTHER, SELFPAY ==
[2024-02-18 09:22] VITALS: BP 107/60; PULSE 97; BMI 33.3
--- NOTE | 2024-02-18 09:22 | MHC.OFFVIS ---
Vital Signs 02/18/24 09:22 Height 5 ft 10 in Weight 232 lb 5.875 oz BMI 33.3 BP 107/60 Blood Pressure Location Rt brachial Position Sitting Pulse 97 Intake Visit Reasons: s/p colon Intake Note: Clifton presents in office today s/p colonoscopy. CC: Patient reports having nausea for about a week and a half after procedure but now he is well. Patient states he is doing well today. Transportation Planning Technician Required: No Accompanied by: Self / Same As Patient Allergies cefadroxil [From Duricef] Allergy (Severe, Verified 02/18/24 09:31) Anaphylaxis paroxetine [From Paxil] Allergy (Severe, Verified 02/18/24 09:31) Swelling Penicillins Allergy (Severe, Verified 02/18/24 09:31) Hives gabapentin Allergy (Unknown, Verified 02/18/24 09:31) Rage SSRI Allergy (Severe, Uncoded 10/22/23 08:49) Swelling HPI HPI s/p colon: Details: Assessment & Plan (1) Irritable bowel syndrome with both constipation and diarrhea: Code(s): K58.2 - Mixed irritable bowel syndrome Category: Medical (2) Multiple food allergies: Comment: PATIENT REPORTS ALLERGIES TO WHEAT, ORANGE JUICE, CHOCOLATE AND SODIUM BENZOATE Code(s): Z91.018 - Allergy to other foods Category: Medical Plan He says he has no messages from our schedulers. He is doing better on the Creon, no as sick as I was before. He is happy with this. He has been drinking more water, r/t the heat, and this will give him occasional diarrhea and fecal incontinence. He says his mother is the same, and he does not feel he needs any help with this. He has not had a message re: colonoscopy. He has upcoming foot surgery. He also has some troubles dealing with workmen's comp so he has a lot on his plate in the short term. ROv 3 mos. COLONOSCOPY 02/02/24 Findings: Terminal Ileum: Not evaluated Cecum: Moderated scattered diverticulosis throughout the entire colon Ascending Colon: A 12 - 15 mm sessile polyp in the proximal ascending colon - removed with a hot snare. Moderated scattered diverticulosis throughout the entire colon Transverse Colon: A 15 to 18 mm sessile polyp in the proximal TC - removed with a hot snare. Moderated scattered diverticulosis throughout the entire colon Descending Colon: Moderate diverticulosis Sigmoid Colon: Moderate diverticulosis Rectum: A 4-5 mm sessile polyp - removed with a cold biopsy Ano-rectum: Small internal hemorrhoids Colon preparation: Good despite copious irrigation and fair in the right and transverse due to adherent stools which could not be flushed off Impression and Post Procedure Diagnosis: Colonoscopy Findings: One small and two medium sized polyps were removed Random biopsies were obtained right and left colon to check for microscopic colitis Moderate diverticulosis seen in the entire colon Small hemorrhoids on retroflexed exam. Plan: Pt has a FU appointment on 02/18/24 with Amber Dejesus NP Repeat Colonoscopy in 1-2 years if polyps are adenomatous and due to fair prep. BIOPSY Received: 02/02/24 Diagnosis A. Colon, proximal transverse, polypectomy: Tubular adenoma; negative for high-grade dysplasia or carcinoma. B. Colon, ascending, polypectomy: Fragments of tubular adenoma; negative for high-grade dysplasia or carcinoma. C. Colon, right, biopsy: Colonic mucosa within normal limits; negative for microscopic colitis. D. Colon, left, biopsy: Colonic mucosa within normal limits; negative for microscopic colitis. E. Rectum, polypectomy: Hyperplastic mucosal polyp TODAY'S VISIT The procedure needs to be repeated in 1-2 years r/t poor prep. He had nausea for a week after the procedure, ? prep. The results were explained and the patient is agreeable to the follow-up interval as stated. The bowel pattern has returned to normal. Education was provided to tell any 1st degree relatives about their findings to be sure that they are screened by age 45. Educated that they will be put on a recall list when it is time for their repeat scope but should they move out of state or away from the hospital they will need to remember along with their primary to repeat the procedure in a timely fashion to avoid any adverse complications. He had no problem with the prep and was passing yellow water - consider low fiber diet prior next procedure. He continues on his Creon with good control with am normal BM's. Return office visit in 6 months [facility] Medical History (Updated 02/18/24 @ 10:11 by JUDY Nowak) Prematurity, weight 500-749 grams, with less than 24 completed weeks of gestation History of sepsis Gallstone pancreatitis Surgical History (Updated 02/18/24 @ 10:11 by JUDY Nowak) H/O colonoscopy History of sphincterotomy of sphincter of Oddi History of cholecystectomy Hx of tonsillectomy Hx of tympanostomy tubes Family History Mother Diverticulitis Father Diverticulosis Colitis Paternal Aunt Breast cancer Maternal Aunt Cancer Social History Alcohol intake: current Alcohol intake frequency: holidays/special occasions only Patient Tobacco Use Status: Current everyday Tobacco user Tobacco use type: Cigarette Cigarette Packs Per Day: 1 Cigarettes Per Day: 20.0 Second Hand Smoke Exposure: No Review of Systems Const Denies fatigue, Denies fever(s), Denies night sweats, Denies poor appetite and Denies weight loss Eyes Details: glasses Reports requires corrective lenses ENT Reports Normal hearing present, Denies dental pain, Denies dysphagia, Denies hearing loss, Denies mouth pain, Denies odynophagia, Denies throat swelling, Denies tongue swelling and Reports other (Dentition adequate) Card Reports no additional complaints Resp Reports no additional complaints GI Details: Denies abdominal pain, Denies melena, Denies bloating, Denies hematochezia, Denies constipation, Denies GI cramping, Denies dysphagia, Denies excessive flatus, Denies early satiety, Denies heartburn, Reports diarrhea, Reports nausea, Denies odynophagia, Denies vomiting and Denies hematemesis Skin/Breast Denies pruritus, Denies lesions, Denies rash and Denies jaundice Neuro Reports Normal hearing present and Denies Abnormal speech present Endo Denies fatigue Aller/Immun Denies throat swelling and Denies tongue swelling Physical Exam Vital Signs: Last Vital Signs Pulse 97 02/18/24 09:22 BP 107/60 02/18/24 09:22 BMI result Body Mass Index 33.3 Const General: cooperative, no acute distress, well developed and well groomed Nutritional Appearance: well nourished and obese Orientation/consciousness: oriented to person, oriented to place and oriented to time Limitations: No language barrier HEENT Head: Yes normocephalic and Yes atraumatic Eyes General: appearance normal, both eyes and all related structures Pupils: Equal, round and reactive pupils present Neck Neck: Yes normal visual inspection and Yes no lymphadenopathy Thyroid: Thyroid normal Resp Effort & Inspection: normal respiratory effort and able to speak in complete sentences Auscultation: clear to auscultation bilaterally Cardio Rate: regular rate Rhythm: regular rhythm Heart sounds: Normal, physiologic split S2 sound present Peripheral pulses: radial pulses present and posterior tibial pulses present GI Inspection: No distended, No Abdominal panniculus present and Yes obesity Palpation (GI): Soft to palpation, nontender, no guarding, not rigid and No hepatosplenomegaly present Percussion: Yes normal to percussion Auscultation: normal bowel sounds Rectal Exam - Male: Yes deferred Skin General skin exam: no rashes or lesions noted, turgor normal, skin not dry, no jaundice, No spider nevi and no striae Rashes: no rashes Nails: normal Neuro General: oriented to person, oriented to place and oriented to time Cranial nerves: Yes Equal, round and reactive pupils present and Yes Normal hearing present Speech: No Abnormal speech present Extrem General: Yes normal to inspection, No clubbing, No cyanosis and No edema Psych Appearance: grossly normal and well kempt Mental Status: mental status grossly normal Speech and movement: Normal speech and movement present Affect: normal affect Attitude: cooperative Thought process: Normal thought process present and not confabulating Thought content: Normal thought content present Insight: Fair insight present (Psych) Judgement: Fair judgement present (Psych) Results Reviewed Results Reviewed: COLONOSCOPY 02/02/24 Findings: Terminal Ileum: Not evaluated Cecum: Moderated scattered diverticulosis throughout the entire colon Ascending Colon: A 12 - 15 mm sessile polyp in the proximal ascending colon - removed with a hot snare. Moderated scattered diverticulosis throughout the entire colon Transverse Colon: A 15 to 18 mm sessile polyp in the proximal TC - removed with a hot snare. Moderated scattered diverticulosis throughout the entire colon Descending Colon: Moderate diverticulosis Sigmoid Colon: Moderate diverticulosis Rectum: A 4-5 mm sessile polyp - removed with a cold biopsy Ano-rectum: Small internal hemorrhoids Colon preparation: Good despite copious irrigation and fair in the right and transverse due to adherent stools which could not be flushed off Impression and Post Procedure Diagnosis: Colonoscopy Findings: One small and two medium sized polyps were removed Random biopsies were obtained right and left colon to check for microscopic colitis Moderate diverticulosis seen in the entire colon Small hemorrhoids on retroflexed exam. Plan: Pt has a FU appointment on 02/18/24 with Amber Dejesus NP Repeat Colonoscopy in 1-2 years if polyps are adenomatous and due to fair prep. BIOPSY Received: 02/02/24 Diagnosis A. Colon, proximal transverse, polypectomy: Tubular adenoma; negative for high-grade dysplasia or carcinoma. B. Colon, ascending, polypectomy: Fragments of tubular adenoma; negative for high-grade dysplasia or carcinoma. C. Colon, right, biopsy: Colonic mucosa within normal limits; negative for microscopic colitis. D. Colon, left, biopsy: Colonic mucosa within normal limits; negative for microscopic colitis. E. Rectum, polypectomy: Hyperplastic mucosal polyp Assessment & Plan Assessment & Plan (1) Irritable bowel syndrome with both constipation and diarrhea: Code(s): K58.2 - Mixed irritable bowel syndrome Category: Medical (2) Tubular adenoma of colon: Comment: 01/2024 scope= 2 large TA is it incomplete prep repeat in 1-2 years Code(s): D12.6 - Benign neoplasm of colon, unspecified Category: Medical Plan The procedure needs to be repeated in 1-2 years r/t poor prep. He had nausea for a week after the procedure, ? prep. The results were explained and the patient is agreeable to the follow-up interval as stated. The bowel pattern has returned to normal. Education was provided to tell any 1st degree relatives about their findings to be sure that they are screened by age 45. Educated that they will be put on a recall list when it is time for their repeat scope but should they move out of state or away from the hospital they will need to remember along with their primary to repeat the procedure in a timely fashion to avoid any adverse complications. He had no problem with the prep and was passing yellow water - consider low fiber diet prior next procedure. He continues on his Creon with good control with am normal BM's. Return office visit in 6 months Coding Level of Care Code Est Pt Level 3 (51993) Diagnoses Irritable bowel syndrome with both constipation and diarrhea K58.2 Tubular adenoma of colon D12.6
== END 2024-02-18 09:56 | disposition home or self-care (01) ==
PROVIDERS: PCP Internal Medicine; Visit Provider Nurse Practitioner
DX: K58.2 Mixed irritable bowel syndrome (principal); D12.6 Benign neoplasm of colon, unspecified
CPT/HCPCS: 99213

== ENCOUNTER → 2024-02-18 09:19 | Outpatient (BNVA) | payer OTHER, SELFPAY | PROVIDERS: PCP Internal Medicine; Visit Provider Nurse Practitioner ==

== ENCOUNTER 2024-04-09 08:25 | Outpatient (AMB) | payer OTHER, SELFPAY ==
[2024-04-09 08:45] VITALS: BP 129/68; PULSE 91; O2SAT 98; BMI 34.2
--- NOTE | 2024-04-09 08:45 | MHC.OFFVIS ---
Vital Signs 04/09/24 08:45 Height 5 ft 10 in Weight 238 lb 8.642 oz BMI 34.2 BP 129/68 Blood Pressure Location Lt brachial Position Sitting Pulse 91 Pulse Source Pulse Oximeter Pulse Oximetry (%) 98 Oxygen Delivery Method Room Air Intake Visit Reasons: 3 month follow up Intake Note: Clifton is a 54 year old male who presents to the office today for a 3 month follow up. Pt states as long as he takes his creon as scheduled he feels okay but states if he doesnt take it then that is when he gets diarrhea and stomach cramping. Pt denies any N/V/D at this time. Pt states his nausea has been under control. Allergies cefadroxil [From Duricef] Allergy (Severe, Verified 04/09/24 08:48) Anaphylaxis paroxetine [From Paxil] Allergy (Severe, Verified 04/09/24 08:48) Swelling Penicillins Allergy (Severe, Verified 04/09/24 08:48) Hives gabapentin Allergy (Unknown, Verified 04/09/24 08:48) Rage SSRI Allergy (Severe, Uncoded 04/09/24 08:48) Swelling HPI HPI 3 month follow up: Details: Assessment & Plan (1) Irritable bowel syndrome with both constipation and diarrhea: Code(s): K58.2 - Mixed irritable bowel syndrome Category: Medical (2) Tubular adenoma of colon: Comment: 01/2024 scope= 2 large TA is it incomplete prep repeat in 1-2 years Code(s): D12.6 - Benign neoplasm of colon, unspecified Category: Medical Plan The procedure needs to be repeated in 1-2 years r/t poor prep. He had nausea for a week after the procedure, ? prep. The results were explained and the patient is agreeable to the follow-up interval as stated. The bowel pattern has returned to normal. Education was provided to tell any 1st degree relatives about their findings to be sure that they are screened by age 45. Educated that they will be put on a recall list when it is time for their repeat scope but should they move out of state or away from the hospital they will need to remember along with their primary to repeat the procedure in a timely fashion to avoid any adverse complications. He had no problem with the prep and was passing yellow water - consider low fiber diet prior next procedure. He continues on his Creon with good control with am normal BM's. Return office visit in 6 months TODAY'S VISIT HE was out of his creon for a bit r/t supply problems with the pharmacies. I will give him a 90 day supply to try to help with consistency of therapy. HE is worried about his weight, he stared bowling and we discuss aquatic therapy at the [facility]. He is trying to eat better. He was only taking the creon in the AM, he thought there was a medication interaction with his PM meds, but he is reassured that here are none. ROV 6 mos [facility] Medical History (Updated 02/18/24 @ 10:11 by JUDY Nowak) Prematurity, weight 500-749 grams, with less than 24 completed weeks of gestation History of sepsis Gallstone pancreatitis Surgical History (Updated 02/18/24 @ 10:11 by JUDY Nowak) H/O colonoscopy History of sphincterotomy of sphincter of Oddi History of cholecystectomy Hx of tonsillectomy Hx of tympanostomy tubes Family History Mother Diverticulitis Father Diverticulosis Colitis Paternal Aunt Breast cancer Maternal Aunt Cancer Social History Alcohol intake: current Alcohol intake frequency: holidays/special occasions only Patient Tobacco Use Status: Current everyday Tobacco user Tobacco use type: Cigarette Cigarette Packs Per Day: 1 Cigarettes Per Day: 20.0 Second Hand Smoke Exposure: No Review of Systems Const Denies fatigue, Denies fever(s), Denies night sweats, Denies poor appetite, Reports weight gain and Denies weight loss Eyes Details: glasses Reports requires corrective lenses ENT Reports Normal hearing present, Denies dental pain, Denies dysphagia, Denies hearing loss, Denies mouth pain, Denies odynophagia, Denies throat swelling, Denies tongue swelling and Reports other (Dentition adequate) Card Reports no additional complaints Resp Reports no additional complaints GI Details: Denies abdominal pain, Denies melena, Reports bloating, Denies hematochezia, Denies constipation, Denies GI cramping, Denies dysphagia, Denies excessive flatus, Denies early satiety, Denies heartburn, Reports diarrhea, Denies nausea, Denies odynophagia, Denies vomiting and Denies hematemesis Musc Reports abnormal gait, Reports myalgias, Reports arthralgias and Reports radiating pain into limb Skin/Breast Denies pruritus, Denies lesions, Denies rash and Denies jaundice Neuro Reports Normal hearing present, Denies Abnormal speech present and Reports abnormal gait Psych Reports anxiety, Reports depression, Denies homicidal ideation and Denies suicidal ideation Endo Denies fatigue Aller/Immun Denies throat swelling and Denies tongue swelling Physical Exam Vital Signs: Last Vital Signs Pulse 91 04/09/24 08:45 BP 129/68 04/09/24 08:45 Pulse Ox 98 04/09/24 08:45 Oxygen Delivery Method Room Air 04/09/24 08:45 BMI result Body Mass Index 34.2 Const General: cooperative, no acute distress, well developed and well groomed Nutritional Appearance: well nourished and obese Orientation/consciousness: oriented to person, oriented to place and oriented to time Limitations: No language barrier HEENT Head: Yes normocephalic and Yes atraumatic Eyes General: appearance normal, both eyes and all related structures Pupils: Equal, round and reactive pupils present Neck Neck: Yes normal visual inspection and Yes no lymphadenopathy Thyroid: Thyroid normal Resp Effort & Inspection: normal respiratory effort and able to speak in complete sentences Auscultation: clear to auscultation bilaterally Cardio Rate: regular rate Rhythm: regular rhythm Heart sounds: Normal, physiologic split S2 sound present Peripheral pulses: radial pulses present and posterior tibial pulses present GI Inspection: No distended, No Abdominal panniculus present and Yes obesity Palpation (GI): Soft to palpation, nontender, no guarding, not rigid and No hepatosplenomegaly present Percussion: Yes normal to percussion Auscultation: normal bowel sounds Rectal Exam - Male: Yes deferred Skin General skin exam: no rashes or lesions noted, turgor normal, skin not dry, no jaundice, No spider nevi and no striae Rashes: no rashes Nails: normal Neuro General: oriented to person, oriented to place and oriented to time Cranial nerves: Yes Equal, round and reactive pupils present and Yes Normal hearing present Speech: No Abnormal speech present Extrem General: Yes normal to inspection, No clubbing, No cyanosis and No edema Psych Appearance: grossly normal and well kempt Mental Status: mental status grossly normal Speech and movement: Normal speech and movement present Affect: normal affect Attitude: cooperative Thought process: Normal thought process present and not confabulating Thought content: Normal thought content present Insight: Fair insight present (Psych) and Limited insight present (Psych) Judgement: Fair judgement present (Psych) and Limited judgement present (Psych) Assessment & Plan Assessment & Plan (1) Irritable bowel syndrome with both constipation and diarrhea: Code(s): K58.2 - Mixed irritable bowel syndrome Category: Medical Plan HE was out of his creon for a bit r/t supply problems with the pharmacies. I will give him a 90 day supply to try to help with consistency of therapy. HE is worried about his weight, he stared bowling and we discuss aquatic therapy at the [facility]. He is trying to eat better. He was only taking the creon in the AM, he thought there was a medication interaction with his PM meds, but he is reassured that here are none. ROV 6 mos Medications: Refilled [id number] 36,000-114,000- 180,000 unit (Creon) administer with meals and/or snacks 2 caps PO BID 360 caps 1RF K58.2 - Mixed irritable bowel syndrome Coding Level of Care Code Est Pt Level 3 (55833) Diagnoses Irritable bowel syndrome with both constipation and diarrhea K58.2
== END 2024-04-09 09:23 | disposition home or self-care (01) ==
PROVIDERS: PCP Internal Medicine; Visit Provider Nurse Practitioner
DX: K58.2 Mixed irritable bowel syndrome (principal)
CPT/HCPCS: 99213

== ENCOUNTER → 2024-04-09 08:25 | Outpatient (BNVA) | payer OTHER, SELFPAY | PROVIDERS: PCP Internal Medicine; Visit Provider Nurse Practitioner ==

== ENCOUNTER 2024-09-29 09:01 | Outpatient (REF) | payer OTHER, SELFPAY ==
--- NOTE | ~2024-09-29 | XR_ITS ---
CLINICAL HISTORY: left hip pain 2 view left femur Comparison: None Findings: No acute fracture. No dislocation. No knee effusion. No significant arthritic change. No radiopaque foreign body. IMPRESSION: 1. Normal left femur This document has been electronically signed by: Princess Mariscal MD on 09/29/2024 17:04:44
--- OUTSIDE RECORDS SUMMARY | 2024-09-29 09:37 | XMS_ITS | Clinical Summary ---
Author Organization [address] [place] [address] Address [address] [place] [address] Phone Care Team Providers Care Hr Administrative Assistant Name Role Phone Cruzito Rondon MD Primary Care Provider [phone] Allergies Active Allergy Reactions Criticality Noted Date Comments Gabapentin 11/27/2023 Paroxetine Hcl 11/27/2023 Penicillins 11/27/2023 Medications No known medications Encounters Date Type Department Care Team Description 07/07/2024 8:45 AM EST Office Visit Orthopedic Surgery [place] [address] [phone] Flaco Mccormick DPM Disorder of ligament of ankle, right (Primary Dx); Pain in both feet; Metatarsalgia of left foot; Metatarsalgia of right foot; Hammertoes of both feet from Last 3 Months Social History Tobacco Use Types Packs/Day Years Used Date Smoking Tobacco: Never Assessed Sex and Gender Information Value Date Recorded Sex Assigned at Not on file Legal Sex Male 11:05 AM EDT Gender Identity Not on file Sexual Orientation Not on file Last Filed Vital Signs Vital Sign Reading Time Taken Comments Blood Pressure - - Pulse - - Temperature - - Respiratory Rate - - Oxygen Saturation - - Inhaled Oxygen Concentration - - Weight 104 kg (230 lb) 07/07/2024 8:30 AM EST Height 178.8 cm (5' 10.39 ) 07/07/2024 8:[address] Body Mass Index 32.63 07/07/2024 8:30 AM EST Plan of Treatment Upcoming Encounters Date Type Department Care Team (Late st Contact Info) Description 10/18/2024 9:15 AM EDT Office Visit Orthopedic Surgery [facility] [address] [phone] Flaco Mccormick DPM [address] [id number] Health Maintenance Due Date Last Done Comments DTaP,Tdap,and Td Vaccines (1 - Tdap) 1991 Pneumococcal Vaccine: 50+ Years (1 of 1 - PCV) 2022 Cholesterol Screening (Lipid Panel) 02/13/2024 Colorectal Cancer Screening: Colonoscopy 02/13/2024 Depression Screening 02/13/2024 HIV Screening 02/13/2024 Hepatitis C Screening 02/13/2024 Social Influencers of Health Screening 02/13/2024 COVID-19 Vaccine (2 - 2023-2 5 season) 2024 02/02/2024 Zoster Vaccines (2 of 2) 03/29/2024 02/02/2024 Hypertension/CHF/CAD Annual BMP Blood Test 07/07/2024 Influenza Vaccine Completed 03/18/2024 Hepatitis B Vaccines Completed 06/24/2024, 02/02/2024 HIB Vaccines Aged Out No longer eligi ble based on patient's age to complete this topic HPV Vaccines Aged Out No longer eligi ble based on patient's age to complete this topic Hepatitis A Vaccines Aged Out No long er eligible based on patient's age to complete this topic IPV Vaccines Aged Out No longer eligi ble based on patient's age to complete this topic MMR Vaccines Aged Out No longer eligi ble based on patient's age to complete this topic Meningococcal ACWY Vaccine Aged Out N o longer eligible based on patient's age to complete this topic Meningococcal B Vacine Aged Out No lo nger eligible based on patient's age to complete this topic Pneumococcal Vaccine: Pediatrics (0 to 5 Years) and At-Risk Patients (6 to 64 Years) Aged Out No longer eligible b ased on patient's age to complete this topic RSV Immunization Patients Under 20 months Aged Out No longer eligible b ased on patient's age to complete this topic Varicella Vaccines Aged Out No longer eligible based on patient's age to complete this topic Insurance [employer] Care Teams Hr Administrative Assistant Relationship Specialty Start Date End Date Cruzito Rondon MD [address] [place] [id number] PCP - General 10/01/23
--- OUTSIDE RECORDS SUMMARY | 2024-09-29 09:37 | XMS_ITS ---
Author Organization [facility] Address [address] [place] [address] Care Team Providers Care Radio Performer Name Role Phone Cruzito Rondon Primary Care Provider [phone] Encounters Encounter Location Date Provider Diagnosis [facility] [address] [place] [address] 06/21/20 24 Cruzito Rondon PLAN OF TREATMENT Next Appt Details Provider Name:Cruzito abdullahi, 12/31/2024 07:45:00 AM, [address] [place] [address], [phone],
--- OUTSIDE RECORDS SUMMARY | 2024-09-29 09:37 | XMS_ITS | Patient Health Record ---
Author Organization vanessa Castro Address [address] [place] [address] Care Team Providers Care Brick Unloader Tender Name Role Phone Cruzito Rondon Primary Care Provider [phone] ALLERGIES Allergen (clinical drug ingredient) Drug/Non Drug Allergy documented on EMR Reaction Allergy Type Onset Date Status paroxetine Paxil Unknown Drug Allergy Active gabapentin Gabapentin Unknown Drug Allergy Activ e Penicillin Unknown Drug Allergy Active RESULTS Component Value Reference Range Notes Hepatic Function Panel [id number] Reviewed date:03/10/2024 09:57:06 AM Interpretation: Performing Lab:[facility], [address] [facility], Phone - [phone], Director - MDJoy Notes/Report: Albumin 4.0 3.8-4.9 g/dL Bilirubin, Total 0.4 0.0-1.2 mg/dL Bilirubin, Direct 0.11 0.00-0.40 mg/dL Alkaline Phosphatase 87 44-121 IU/L AST (SGOT) 16 0-40 IU/L ALT (SGPT) 12 0-44 IU/L Lipid Panel-[id number] Reviewed date:03/10/2024 09:57:06 AM Interpretation: Performing Lab:[facility], [address] | [address], [place], Phone - [phone], Director - MDJoy Notes/Report: Cholesterol, Total 191 100-199 mg/dL Triglycerides 105 0-149 mg/dL HDL Cholesterol 45 >39 mg/dL VLDL Cholesterol Edis 19 5-40 mg/dL LDL Chol Calc ([facility]) 127 0-99 mg/dL LDL Calc Comment: Hepatic Function Panel ([id number] Reviewed date:06/23/2024 12:47:58 PM Interpretation: Performing Lab:[facility] [place], [address] [facility], Phone - [phone], Director - Shiva Notes/Report: Albumin 4.2 3.8-4.9 g/dL Bilirubin, Total 0.4 0.0-1.2 mg/dL Bilirubin, Direct 0.14 0.00-0.40 mg/dL Alkaline Phosphatase 110 44-121 IU/L AST (SGOT) 16 0-40 IU/L ALT (SGPT) 14 0-44 IU/L Lipid Panel-[id number] Reviewed date:06/23/2024 12:47:58 PM Interpretation: Performing Lab:[facility] [place], [address] [facility], Phone - [phone], Director - Shiva Notes/Report: Cholesterol, Total 98 100-199 mg/dL Triglycerides 84 0-149 mg/dL HDL Cholesterol 42 >39 mg/dL VLDL Cholesterol Edis 17 5-40 mg/dL LDL Chol Calc ([facility]) 39 0-99 mg/dL LDL Calc Comment: Comp. Metabolic Panel ([id number] Reviewed date:10/14/2023 07:32:57 PM Interpretation: Performing Lab:[facility] [place], [address] [facility], Phone - [phone], Director - Arabellay Notes/Report: Glucose 96 70-99 mg/dL BUN 11 6-24 mg/dL Creatinine 1.11 0.76-1.27 mg/dL eGFR 80 >59 mL/min/1.73 BUN/Creatinine Ratio 10 9-20 Sodium 138 134-144 mmol/L Potassium 4.1 3.5-5.2 mmol/L Chloride 101 96-106 mmol/L Anion Gap 12.0 10.0-18.0 mmol/L Carbon Dioxide, Total 25 20-29 mmol/L Calcium 9.2 8.7-10.2 mg/dL Protein, Total 6.4 6.0-8.5 g/dL Albumin 4.1 3.8-4.9 g/dL Globulin, Total 2.3 1.5-4.5 g/dL A/G Ratio 1.8 1.2-2.2 Bilirubin, Total 0.4 0.0-1.2 mg/dL Alkaline Phosphatase 93 44-121 IU/L AST (SGOT) 16 0-40 IU/L ALT (SGPT) 13 0-44 IU/L Urinalysis, Complete-[id number] Reviewed date:10/14/2023 07:32:57 PM Interpretation: Performing Lab:[facility], [address] [place] [address], Phone - [phone], Director - Shiva Notes/Report: Specific [place] 1.015 1.005-1.030 pH 6.5 5.0-7.5 Urine-Color Yellow Yellow Appearance Clear Clear WBC Esterase Negative Negative Protein Negative Negative/Trace Glucose Negative Negative Ketones Negative Negative Occult Blood Negative Negative Bilirubin Negative Negative Urobilinogen,Semi-Qn 0.2 0.2-1.0 mg/dL Nitrite, Urine Negative Negative Microscopic Examination Micr oscopic follows if indicated. Microscopic Examination See below: Micr oscopic was indicated and was performed. WBC None seen 0 - 5 /hpf RBC 0-2 0 - 2 /hpf Epithelial Cells (non renal) None seen 0 - 10 /hpf Epithelial Cells (renal) Casts None seen None seen /lpf Cast Type Crystals Crystal Type Mucus Threads Bacteria None seen None seen/Few Yeast Trichomonas Comment CBC With Differential/Platel et-[id number] Reviewed date:10/14/2023 07:32:57 PM Interpretation: Performing Lab:[facility], [address] [facility], [place], Phone - [phone], Director - Shiva Notes/Report: WBC 6.9 3.4-10.8 x10E3/uL RBC 5.14 4.14-5.80 x10E6/uL Hemoglobin 16.1 13.0-17.7 g/dL Hematocrit 47.5 37.5-51.0 % MCV 92 79-97 fL MCH 31.3 26.6-33.0 pg MCHC 33.9 31.5-35.7 g/dL RDW 12.2 11.6-15.4 % Platelets 230 150-450 x10E3/uL Neutrophils 48 Not Estab. % Lymphs 40 Not Estab. % Monocytes 8 Not Estab. % Eos 3 Not Estab. % Basos 1 Not Estab. % Immature Cells Neutrophils (Absolute) 3.3 1.4-7.0 x10E3/uL Lymphs (Absolute) 2.8 0.7-3.1 x10E3/uL Monocytes(Absolute) 0.5 0.1-0.9 x10E3/uL Eos (Absolute) 0.2 0.0-0.4 x10E3/uL Baso (Absolute) 0.1 0.0-0.2 x10E3/uL Immature Granulocytes 0 Not Estab. % Immature Grans (Abs) 0.0 0.0-0.1 x10E3/uL [facility] Hematology Comments: Prostate-Specific Ag-[id number] Reviewed date:10/14/2023 07:32:57 PM Interpretation: Performing Lab:[facility], [address] [facility], Phone - [phone], Director - [facility] Notes/Report: Prostate Specific Ag 0.8 0.0-4.0 ng/mL Misty ECLIA methodology. . According to the [place] [employer], Serum PSA should decrease and remain at undetectable levels after radical prostatectomy. The AUA defines biochemical recurrence as an initial PSA value 0.2 ng/mL or greater followed by a subsequent confirmatory PSA value 0.2 ng/mL or greater. Values obtained with different assay methods or kits cannot be used interchangeably. Results cannot be interpreted as absolute evidence of the presence or absence of malignant disease. Vitamin D, 85-Miibotc-[id number] Reviewed date:10/14/2023 07:32:58 PM Interpretation: Performing Lab:[facility], [address] [facility], [place], Phone - [phone], Director - MDdry Notes/Report: Vitamin D, 25-Hydroxy 7.9 30.0-100.0 ng/mL Vitamin D deficiency has been defined by the [place] of Medicine and an Endocrine Society practice guideline as a level of serum 25-OH vitamin D less than 20 ng/mL (1,2). The Endocrine Society went on to further define vitamin D insufficiency as a level between 21 and 29 ng/mL (2). 1. IOM ([place] of Medicine). 2010. Dietary reference intakes for calcium and D. [place]: The National Academies Press. 2. Chris MF, Ernst [place], Funmilayo AGUILAR, et al. Evaluation, treatment, and prevention of vitamin D deficiency: an Endocrine Society clinical practice guideline. JCEM. 2010; 96(7):1911-30. TSH+Free [id number] Reviewed date:10/14/2023 07:32:58 PM Interpretation: Performing Lab:[facility], [address], [place], Phone - [phone], Director - Shiva Notes/Report: TSH 3.920 0.450-4.500 uIU/mL T4,Free(Direct) 1.15 0.82-1.77 ng/dL REASON FOR REFERRAL Reason Screening colonoscop y Diagnosis 1 Screening for colon cancer (Z12.11) Referral Organization Cruzito Rnodon Md Referring Provider First Name Cruzito Referring Provider Last Name Alcon Referring Provider Speciality Internal M edicine Referred Provider [facility], Ref erral Services Referred Provider Specialty Gastroentero logy General Notes Erica Newton 2023 09:23:02 AM EDT > P2P Sent., Camryn King 12/02/2023 09:30:57 AM EDT > Patient already has gastro Amber Dejesus. This is all set Referral Priority Urgent Reason Consultation Diagnosis 1 Polyarthralgia (M25. 50) [...] Referral Priority Routine Referral Appointment Date 12/07/2024 MEDICATIONS Medication SIG (Take, Route, Frequency, Duration) Notes Start Date End Date Status Rosuvastatin Calcium 20 MG 1 tablet Oral ly Once a day for 90 Days Active Lisinopril 10 MG TAKE 1 TABLET BY NISA TH EVERY DAY for 90 Active Vitamin D3 50 MCG (1999) 1 capsule Or ally Once a day Active Tamsulosin HCl 0.4 MG TAKE 1 CAPSULE BY MOUTH EVERY DAY for 90 Active Rizatriptan Benzoate 10 MG 1 tablet Oral ly Once a day Active Mirtazapine 15 MG 1 tablet at bedtime Orally Once a day Active oxyBUTYnin Chloride ER 10 MG 1 tablet Orally Once a day for 90 Days 09/29/2024 Active Ezetimibe 10 MG TAKE 1 TABLET BY NISA TH EVERY DAY for 90 Active Ezetimibe 10 MG 1 tablet Orally Once a day for 90 Days Active Rosuvastatin Calcium 20 MG TAKE 1 TABLET BY MOUTH EVERY DAY for 90 Active Tamsulosin HCl 0.4 MG 1 capsule Orally O nce a day Active Lisinopril 10 MG 1 tablet Orally Once a day Active Creon 6000-17268 UNIT as directed Orally Active SOCIAL HISTORY Tobacco Use: Social History [...] month (2 points) Points 2 Interpretation Negative PROBLEMS Problem Type ICD Code Onset Dates Problem Status W/U Status Risk SNOMED Code Notes Problem Vitamin D deficiency (E55.9) Active confirmed 97132210 Problem Tobacco abuse (Z72.0) Active confirmed 944231295 Problem Mixed hyperlipidemia (E78.2) Active confirmed 635940040 Problem Overactive bladder (N32.81) Active confirmed 400356467 Problem Essential hypertension (I10) Active confirmed 26036037 Problem Nicotine use disorder (F17.200) Active confirmed 06790729 Problem Ocular migraine (G43.109) Active confirmed 44526467 Problem Benign prostatic hyperplasia with lower urinary tract symptoms (N40.1) Active confirmed 5894798761690 Problem Chronic bipolar disorder (F31.9) Active confirmed 18847043 VITAL SIGNS Heart Rate 80 /min 06/29/2024 Blood pressure diastolic 80 mm Hg 06/29/2024 Height 70 in 09/29/2024 Blood pressure systolic 120 mm Hg 06/29/2024 Weight 241.4 lbs 09/29/2024 BMI 34.63 kg/m2 09/29/2024 PROCEDURES Procedure Date Ordered Date Performed Result Body Sit e EAR IRRIGATION 03/23/2024 N/A Encounters Encounter Location Date Provider Diagnosis kalyani Gloria [address] [address] 10/13/2023 Cruzito Rondon Chronic bipolar disorder F31.9 ; Acute prostatitis N41.0 ; Bunion, right foot M21.611 ; Tobacco abuse Z72.0 and Nicotine use disorder F17.200 [address]alyani Gloria [address] [address] 10/30/2023 Cruzito Rondon Md [address] [place] [id number] 11/10/2023 Cruzito Rondon Acute prostatitis N4 1.0 [facility] [place] [address] [address] 11/11/2023 Cruz[facility]ondon [facility] [address] [address] 12/02/2023 Cruzito Rondon Annual physical exam Z00.00 ; Vitamin D deficiency E55.9 ; Ocular migraine G43.109 ; Screening for colon cancer Z12.11 ; Essential hypertension I10 and Impacted cerumen of both ears H61.23 [facility] [place] [address] [address] 12/02/2023 Cruzito Rondon Essential hypertensi on I10 [address] [address] 12/08/2023 Cruzito Rondon [facility], [address] [address] 12/17/2023 Cruzito Rondon Mixed hyperlipidemia E78.2 ; Essential hypertension I10 ; Chronic bipolar disorder F31.9 ; Ocular migraine G43.109 ; Vitamin D deficiency E55.9 and Tobacco abuse Z72.0 [facility] [place], [address] [address] 01/12/2024 [facility] [address] [address] 2024 Cruzito Rondon Mixed hyperlipidemia E78.2 ; Essential hypertension I10 ; Chronic bipolar disorder F31.9 ; Ocular migraine G43.109 ; Benign prostatic hyperplasia with lower urinary tract symptoms N40.1 ; Vitamin D deficiency E55.9 and Tobacco abuse Z72.0 [facility] [place], [address] [address] 03/23/2024 Cruzito Rondon Bilateral impacted cerumen H61.[address] [address] 06/21/2024 [facility] [address] [address] 06/29/2024 Cruzito Rondon Mixed hyperlipidemia E78.2 ; Essential hypertension I10 ; Chronic bipolar disorder F31.9 ; Ocular migraine G43.109 ; Benign prostatic hyperplasia with lower urinary tract symptoms N40.1 ; Vitamin D deficiency E55.9 ; Tobacco abuse Z72.0 and Polyarthralgia M25.[address] [address] 09/29/2024 Cruzito Rodnon Mixed hyperlipidemia E78.2 ; Essential hypertension I10 ; Chronic bipolar disorder F31.9 ; Ocular migraine G43.109 ; Benign prostatic hyperplasia with lower urinary tract symptoms N40.1 ; Polyarthralgia M25.50 ; Vitamin D deficiency E55.9 ; Tobacco abuse Z72.0 ; Overactive bladder N32.81 and Left hip pain M25.552 ASSESSMENTS Encounter Date Diagnosis Assessment Notes Treatment Notes Treatment Clinical Notes 09/29/2024 Essential hypertension (ICD-10 - I10) 09/29/2024 Mixed hyperlipidemia (ICD-10 - E78.2) 10/13/2023 Chronic bipolar disorder (ICD-10 - F31.9) 06/29/2024 Essential hypertension (ICD-10 - I10) 06/29/2024 Mixed hyperlipidemia (ICD-10 - E78.2) 03/23/2024 Bilateral impacted cerumen (ICD-10 - H61.23) With patient's verbal consent bilateral ear lavage performed with good results. Over 20 minutes was spent in direct patient contact performing the procedure. M.D. examining the patient before and after the procedure. 10/13/2023 Acute prostatitis (ICD-10 - N41.0) 11/10/2023 Acute prostatitis (ICD-10 - N41.0) 11/11/2023 Acute prostatitis (ICD-10 - N41.0) 12/02/2023 Annual physical exam (ICD-10 - Z00.00) 12/02/2023 Vitamin D deficiency (ICD-10 - E55.9) 2024 Essential hypertension (ICD-10 - I10) 2024 Mixed hyperlipidemia (ICD-10 - E78.2) 12/17/2023 Essential hypertension (ICD-10 - I10) 12/02/2023 Essential hypertension (ICD-10 - I10) 12/17/2023 Mixed hyperlipidemia (ICD-10 - E78.2) 09/29/2024 Chronic bipolar disorder (ICD-10 - F31.9) 06/29/2024 Chronic bipolar disorder (ICD-10 - F31.9) 2024 Chronic bipolar disorder (ICD-10 - F31.9) 12/17/2023 Chronic bipolar disorder (ICD-10 - F31.9) 12/02/2023 Ocular migraine (ICD-10 - G43.109) 10/13/2023 Bunion, right foot (ICD-10 - M21.611) 12/17/2023 Ocular migraine (ICD-10 - G43.109) 12/02/2023 Screening for colon cancer (ICD-10 - Z12.11) 2024 Ocular migraine (ICD-10 - G43.109) 10/13/2023 Tobacco abuse (ICD-10 - Z72.0) Smoking cessation encouraged various treatment options discussed with patient. 06/29/2024 Ocular migraine (ICD-10 - G43.109) 09/29/2024 Ocular migraine (ICD-10 - G43.109) 12/17/2023 Vitamin D deficiency (ICD-10 - E55.9) 12/02/2023 Essential hypertension (ICD-10 - I10) 2024 Benign prostatic hyperplasia with lower urinary tract symptoms (ICD-10 - N40.1) 10/13/2023 Nicotine use disorder (ICD-10 - F17.200) 06/29/2024 Benign prostatic hyperplasia with lower urinary tract symptoms (ICD-10 - N40.1) 09/29/2024 Benign prostatic hyperplasia with lower urinary tract symptoms (ICD-10 - N40.1) 12/17/2023 Tobacco abuse (ICD-10 - Z72.0) Smoking cessation encouraged various treatment options discussed with patient. 12/02/2023 Impacted cerumen of both ears (ICD-10 - H61.23) 2024 Vitamin D deficiency (ICD-10 - E55.9) 06/29/2024 Vitamin D deficiency (ICD-10 - E55.9) 09/29/2024 Polyarthralgia (ICD-10 - M25.50) 2024 Tobacco abuse (ICD-10 - Z72.0) Smoking cessation encouraged various treatment options discussed with patient. 06/29/2024 Tobacco abuse (ICD-10 - Z72.0) Smoking cessation encouraged various treatment options discussed with patient. 09/29/2024 Vitamin D deficiency (ICD-10 - E55.9) 06/29/2024 Polyarthralgia (ICD-10 - M25.50) 09/29/2024 Tobacco abuse (ICD-10 - Z72.0) 09/29/2024 Overactive bladder (ICD-10 - N32.81) 09/29/2024 Left hip pain (ICD-10 - M25.552) 12/02/2023 Other This chart has been transcribed by a computerized dictation system. There are likely to be multiple cardiac technologist inaccuracies despite chart review. 10/13/2023 Other This chart has been transcribed by a computerized dictation system. There are likely to be multiple cardiac technologist inaccuracies despite chart review. 12/17/2023 Other This chart has been transcribed by a computerized dictation system. There are likely to be multiple cardiac technologist inaccuracies despite chart review. 2024 Other This chart has been transcribed by a computerized dictation system. There are likely to be multiple cardiac technologist inaccuracies despite chart review. 03/23/2024 Other This chart has been transcribed by a computerized dictation system. There are likely to be multiple cardiac technologist inaccuracies despite chart review. 06/29/2024 Other This chart has been transcribed by a computerized dictation system. There are likely to be multiple cardiac technologist inaccuracies despite chart review. 09/29/2024 Other This chart has been transcribed by a computerized dictation system. There are likely to be multiple cardiac technologist inaccuracies despite chart review. PLAN OF TREATMENT Pending Test Test Name Order Date X ray : Hip, left 09/29/2024 X ray : Femur, left 09/29/2024 GUAIAC, SINGLE SPECIMEN 12/02/2023 EAR IRRIGATION 03/23/2024 25OH VITAMIN D 09/24/2023 CBC (COMPLETE BLOOD COUNT) WITH DIFF 12/2023 COMPREHENSIVE METABOLIC PANEL 09/24/2023 PSA, SCREEN 09/24/2023 THYROID PANEL (TSH, FT4) 09/24/2023 URINALYSIS, COMPLETE 09/24/2023 Hepatic Function Panel [id number] 2024 Lipid Panel-[id number] 09/29/2024 Lipid Panel-[id number] 12/02/2023 Next Appt Details Provider Name:Cruzito Simmons Cory abdullahi, 12/31/2024 07:45:00 AM, [address] [place], [address], Insurance Providers Payer Name Payer Address Payer Phone Subscriber Number Group Number Insured Name Patient Relationship to Insured Coverage Start Date Coverage End Date [facility] [address] [place] [address] [id number] Clifton Juárez Self - patient is the insured MEDICAL (GENERAL) HISTORY Surgical History Surgery Date(Month/Year) Tubes in Ear 1971- Tonsilectomy 1976 Cholecystecomy 2015 Hospitalization History Reason Date(Month/Year) For Above Procedures"
--- OUTSIDE RECORDS SUMMARY | 2024-09-29 09:37 | XMS_ITS ---
Author Organization Alcon Castro Address [address] [place] [address] Care Team Providers Care Account Director Name Role Phone Cruzito Rondon Primary Care Provider [phone] ALLERGIES Allergen (clinical drug ingredient) Drug/Non Drug Allergy documented on EMR Reaction Allergy Type Onset Date Status paroxetine Paxil Unknown Drug Allergy Active gabapentin Gabapentin Unknown Drug Allergy Activ e Penicillin Unknown Drug Allergy Active REASON FOR REFERRAL Reason Consultation Diagnosis 1 Polyarthralgia (M25. 50) Referral Organization Cruzito Rondon Md Referring Provider First Name Cruzito Referring Provider Last Name Alocn Referring Provider Speciality Internal M edicine Referred [...] Orally O nce a day Active Creon 6000-31262 UNIT as directed Orally Active Tamsulosin HCl [...] Encounters Encounter Location Date Provider Diagnosis vanessa Castro [address] [place] [address] 06/29/2024 Cruzito Rondon Mixed hyperlipidemia E78.2 ; Essential hypertension I10 ; Chronic bipolar disorder F31.9 ; Ocular migraine G43.109 ; Benign prostatic hyperplasia with lower urinary tract symptoms N40.1 ; Vitamin D deficiency E55.9 ; Tobacco abuse Z72.0 and Polyarthralgia M25.50 ASSESSMENTS Encounter Date Diagnosis Assessment Notes Treatment Notes Treatment Clinical Notes 06/29/2024 Mixed hyperlipidemia (ICD-10 - E78.2) [...] system. There are likely to be multiple food services director inaccuracies despite chart review. PLAN OF TREATMENT [...] system. There are likely to be multiple food services director inaccuracies despite chart review. Referrals Referral Date Details 12/07/2024 12/07/2024, Consulta tielisha Next Appt Details Follow Up: 3 Months, Reason: Follow-up Provider Name:Cruzito abdullahi, 12/31/2024 07:45:00 AM, [address] [place] [address], [phone], Progress Notes * Examination Category Sub-Category Detail Notes General Examination GENERAL APPEARANCE: in no ac andrey distress, well developed, well nourished, in no [...] Bunion right foot, B union right foot Consultation Request Notes Referral Date Referring Provider Referred Provider Not ross 06/29/2024 Cruzito Rondon , Consultation
--- OUTSIDE RECORDS SUMMARY | 2024-09-29 09:37 | XMS_ITS ---
Author Name [facility] Organization Unknown Encounters Encounter Type Encounter Reason Primary Diagnosis Location Date Ambulatory [facility]. ([facility] 06/25/2024
--- OUTSIDE RECORDS SUMMARY | 2024-09-29 09:37 | XMS_ITS ---
Author Organization Alcon Castro Address [address] [place] [address] Care Team Providers Care Plater Production Name Role Phone Cruzito Rondon Primary Care Provider [phone] ALLERGIES Allergen (clinical drug ingredient) Drug/Non Drug [...] 90 Days 09/29/2024 Active Ezetimibe 10 MG 1 tablet Orally Once a day for 90 Days Active Tamsulosin HCl 0.4 MG 1 capsule Orally O nce a day Active Creon 6000-80413 UNIT as directed Orally Active Rosuvastatin Calcium 20 MG 1 tablet Oral ly Once a day for 90 Days Active Vitamin D3 50 MCG (1999 [place]) 1 capsule Or ally Once a day Active Rizatriptan Benzoate 10 MG 1 tablet Oral ly Once a day Active Mirtazapine 15 MG 1 tablet at bedtime Orally Once a day Active Lisinopril 10 [...] Notes Problem Overactive bladder (N32.81) Active confirmed 367194418 VITAL SIGNS Height 70 in 09/29/2024 Weight 241.4 lbs 09/29/2024 BMI 34.63 kg/m2 09/29/2024 Encounters Encounter Location Date Provider Diagnosis kalyani[address] [address] 09/29/2024 Cruzito Rondon Mixed hyperlipidemia E78.2 ; Essential hypertension I10 ; Chronic bipolar disorder F31.9 ; Ocular migraine G43.109 ; Benign prostatic hyperplasia with lower urinary tract symptoms N40.1 ; Polyarthralgia M25.50 ; Vitamin D deficiency E55.9 ; Tobacco abuse Z72.0 ; Overactive bladder N32.81 and Left hip pain M25.552 ASSESSMENTS Encounter Date Diagnosis Assessment Notes Treatment Notes Treatment Clinical Notes 09/29/2024 Mixed hyperlipidemia (ICD-10 - E78.2) [...] system. There are likely to be multiple ambulatory care nurse inaccuracies despite chart review. PLAN OF TREATMENT Medication Medication Name Sig Start Date Stop Date Notes oxyBUTYnin Chloride ER 10 MG 1 tablet Or ally Once a day for 90 Days 09/29/2024 Ezetimibe 10 MG 1 tablet Orally Once a day for 90 Days Tamsulosin HCl 0.4 MG 1 capsule Orally Once a day Rosuvastatin Calcium 20 MG 1 tablet Oral ly Once a day for 90 Days Vitamin D3 50 MCG (1999) 1 capsule Orally Once a day Rizatriptan Benzoate 10 MG 1 tablet Orally Once a day Mirtazapine 15 MG 1 tablet at bedtime Orally Once a day Lisinopril 10 MG 1 tablet Orally Once a day Treatment Notes Assessment Notes Other This chart has been transcribed by a computerized dictation system. There are likely to be multiple ambulatory care nurse inaccuracies despite chart review. Pending Test Test Name Order Date X ray : Hip, left 09/29/2024 X ray : Femur, left 09/29/2024 Hepatic Function Panel [id number] 2024 Lipid Panel-[id number] 09/29/2024 Next Appt Details Follow Up: 3 Months, Reason: Follow-up Provider Name:Cruzito Villarrealkalyani abdullahi, 12/31/2024 07:45:00 AM, [address] [place] [address], [phone], Progress Notes * Examination Category Sub-Category Detail Notes General Examination GENERAL APPEARANCE: in no ac [place] distress, well developed, well nourished HEAD: normocephalic, [...]
== END 2024-09-29 09:02 | disposition home or self-care (01) ==
LOC: HO.XRAY 09:01
PROVIDERS: PCP Internal Medicine; Visit Provider Internal Medicine
DX: M25.552 Pain in left hip (principal)
CPT/HCPCS: 73552

== ENCOUNTER → 2024-09-29 09:15 | Outpatient (BNV) | payer OTHER, SELFPAY | PROVIDERS: PCP Internal Medicine; Visit Provider Specialist | DX: M25.552 Pain in left hip (principal) | CPT/HCPCS: 73552 ==

== ENCOUNTER 2024-10-26 09:45 | Outpatient (AMB) | payer OTHER, SELFPAY ==
[2024-10-26 09:56] VITALS: BP 123/64; PULSE 91; BMI 34.7
--- NOTE | 2024-10-26 09:56 | MHC.OFFVIS ---
Vital Signs 10/26/24 09:56 Height 5 ft 10 in Weight 241 lb 13.553 oz BMI 34.7 BP 123/64 Blood Pressure Location Rt brachial Position Sitting Pulse 91 Intake Visit Reasons: 6 mo ibs Intake Note: Clifton returns in 6 months follow up of IBS. CC: Patient reports sometimes having abdominal cramping and fecal incontinence. Per patient he's had this problem since he was a child. Guide Cruise Required: No Accompanied by: Self / Same As Patient Allergies cefadroxil [From Duricef] Allergy (Severe, Verified 10/26/24 10:00) Anaphylaxis paroxetine [From Paxil] Allergy (Severe, Verified 10/26/24 10:00) Swelling Penicillins Allergy (Severe, Verified 10/26/24 10:00) Hives gabapentin Allergy (Unknown, Verified 10/26/24 10:00) Rage SSRI Allergy (Severe, Uncoded 04/09/24 08:48) Swelling HPI HPI 6 mo ibs: Details: Assessment & Plan (1) Irritable bowel syndrome with both constipation and diarrhea: Code(s): K58.2 - Mixed irritable bowel syndrome Category: Medical Plan HE was out of his creon for a bit r/t supply problems with the pharmacies. I will give him a 90 day supply to try to help with consistency of therapy. HE is worried about his weight, he stared bowling and we discuss aquatic therapy at the [facility]. He is trying to eat better. He was only taking the creon in the AM, he thought there was a medication interaction with his PM meds, but he is reassured that here are none. ROV 6 mos Medications: Refilled wkaolo-[id number]-ocuuxku 36,000-114,000- 180,000 unit (Creon) administer with meals and/or snacks 2 caps PO BID 360 caps 1RF K58.2 - Mixed irritable bowel syndrome TODAY'S VISIT He is still having fecal accidents/incontinence and both loose stools, cramping and he sees undigested foods. However, he is not taking his full dose of creon, only taking 1 a day. BUT he is not getting enough creon from his pharmacy and if I take 4 a day I run out. He mentions that he slipped on the ice this winter and it was causing him left-sided hip and leg pain. ROV 3 mos. [facility] Medical History Prematurity, weight 500-749 grams, with less than 24 completed weeks of gestation History of sepsis Gallstone pancreatitis Surgical History H/O colonoscopy History of sphincterotomy of sphincter of Oddi History of cholecystectomy Hx of tonsillectomy Hx of tympanostomy tubes Family History Mother Diverticulitis Father Diverticulosis Colitis Paternal Aunt Breast cancer Maternal Aunt Cancer Social History Alcohol intake: current Alcohol intake frequency: holidays/special occasions only Patient Tobacco Use Status: Current everyday Tobacco user Tobacco use type: Cigarette Cigarette Packs Per Day: 1 Cigarettes Per Day: 20.0 Second Hand Smoke Exposure: No Review of Systems Const Denies fatigue, Denies fever(s), Denies night sweats, Denies poor appetite and Denies weight loss Eyes Details: glasses Reports requires corrective lenses ENT Reports Normal hearing present, Denies dental pain, Denies dysphagia, Denies hearing loss, Denies mouth pain, Denies odynophagia, Denies throat swelling, Denies tongue swelling and Reports other (Dentition adequate) Card Reports no additional complaints Resp Reports no additional complaints GI Details: Denies abdominal pain, Denies melena, Denies bloating, Denies hematochezia, Denies constipation, Reports GI cramping, Denies dysphagia, Denies excessive flatus, Denies early satiety, Reports dyspepsia, Denies heartburn, Reports fecal incontinence, Reports diarrhea, Denies nausea, Denies odynophagia, Denies vomiting and Denies hematemesis Reports urinary incontinence Musc Reports abnormal gait and Reports arthralgias Skin/Breast Denies pruritus, Denies lesions, Denies rash and Denies jaundice Neuro Reports Normal hearing present, Denies Abnormal speech present and Reports abnormal gait Psych Reports anxiety Endo Denies fatigue Aller/Immun Denies throat swelling and Denies tongue swelling Physical Exam Vital Signs: Last Vital Signs Pulse 91 10/26/24 09:56 BP 123/64 10/26/24 09:56 BMI result Body Mass Index 34.7 Const General: cooperative, no acute distress, well developed and well groomed Nutritional Appearance: well nourished and obese Orientation/consciousness: oriented to person, oriented to place and oriented to time Limitations: No language barrier HEENT Head: Yes normocephalic and Yes atraumatic Eyes General: appearance normal, both eyes and all related structures Pupils: Equal, round and reactive pupils present Neck Neck: Yes normal visual inspection and Yes no lymphadenopathy Thyroid: Thyroid normal Resp Effort & Inspection: normal respiratory effort and able to speak in complete sentences Auscultation: clear to auscultation bilaterally Cardio Rate: regular rate Rhythm: regular rhythm Heart sounds: Normal, physiologic split S2 sound present Peripheral pulses: radial pulses present and posterior tibial pulses present GI Inspection: No distended, No Abdominal panniculus present and Yes obesity Palpation (GI): Soft to palpation, nontender, no guarding, not rigid and No hepatosplenomegaly present Percussion: Yes normal to percussion Auscultation: normal bowel sounds Rectal Exam - Male: Yes deferred Skin General skin exam: no rashes or lesions noted, turgor normal, skin not dry, no jaundice, No spider nevi and no striae Rashes: no rashes Nails: normal Neuro General: oriented to person, oriented to place and oriented to time Cranial nerves: Yes Equal, round and reactive pupils present and Yes Normal hearing present Speech: No Abnormal speech present Extrem General: Yes normal to inspection, No clubbing, No cyanosis and No edema Psych Appearance: grossly normal and well kempt Mental Status: mental status grossly normal Speech and movement: Normal speech and movement present Affect: normal affect Attitude: cooperative Thought process: not confabulating and Perseverating thought process present Thought content: Normal thought content present Insight: Limited insight present (Psych) Judgement: Limited judgement present (Psych) Assessment & Plan Assessment & Plan (1) Irritable bowel syndrome with both constipation and diarrhea: Code(s): K58.2 - Mixed irritable bowel syndrome Category: Medical Plan He is still having fecal accidents/incontinence and both loose stools, cramping and he sees undigested foods. However, he is not taking his full dose of creon, only taking 1 a day. BUT he is not getting enough creon from his pharmacy and if I take 4 a day I run out. He mentions that he slipped on the ice this winter and it was causing him left-sided hip and leg pain. ROV 3 mos. Medications: Refilled rohwlp-xelpetvv-fagboan 36,000-114,000- 180,000 unit (Creon) administer with meals and/or snacks 2 caps PO BID 360 caps 1RF K58.2 - Mixed irritable bowel syndrome Coding Level of Care Code Est Pt Level 3 (91230) Diagnoses Irritable bowel syndrome with both constipation and diarrhea K58.2
--- OUTSIDE RECORDS SUMMARY | 2024-10-26 11:09 | XMS_ITS | Clinical Summary ---
Author Organization [address] [place] [address] Address [address] [place] [address] Phone Care Team Providers Care Auto Parts Clerk Name Role Phone Cruzito Rondon MD Primary Care Provider [phone] Allergies Active Allergy Reactions Criticality Noted Date Comments Gabapentin 11/27/2023 Paroxetine Hcl 11/27/2023 Penicillins 11/27/2023 Medications No known medications Encounters Date Type Department Care Team Description 10/18/2024 9:15 AM EDT Office Visit Orthopedic Surgery [place] [id number] [phone] Flaco Mccormick DPM Disorder of ligament of [...] - - Weight 104 kg (230 lb) 10/18/2024 8:55 AM EDT Height 178.8 cm (5' 10.39 ) 10/18/2024 8:55 AM E DT Body Mass Index 32.63 10/18/2024 8:55 AM EDT Plan of Treatment Upcoming Encounters Date Type Department Care Team ([facility] Contact Info) Description 12/20/2024 8:45 AM EDT Office Visit Orthopedic Surgery [facility] [address] [phone] Flaco Mccormick DPM [address] [address] Health Maintenance Due Date Last Done Comments [...] age to complete this topic Meningococcal B Vaccine Aged Out No l onger eligible based on patient's age to complete [...] patient's age to complete this topic Insurance [facility] PLANS Care Teams Auto Parts Clerk Relationship Specialty Start Date End Date Cruzito Rondon MD [address] [place] [id number] PCP - General 10/01/23
--- OUTSIDE RECORDS SUMMARY | 2024-10-26 11:09 | XMS_ITS | Patient Health Record ---
Author Organization vanessa Castro Address [address] [place] [address] Care Team Providers Care Groundwater Consultant Name Role Phone Cruzito Rondon Primary Care Provider ALLERGIES Allergen (clinical drug ingredient) Drug/Non Drug Allergy documented on EMR Reaction Allergy Type Onset Date Status paroxetine Paxil Unknown Drug Allergy Active gabapentin Gabapentin Unknown Drug Allergy Activ e Penicillin Unknown Drug Allergy Active RESULTS Component Value Reference Range Notes Hepatic Function Panel [id number] Reviewed date:03/10/2024 09:57:06 AM Interpretation: Performing Lab:[facility], [address] [facility], Phone - [phone], Director - MDJoy Notes/Report: Albumin 4.0 3.8-4.9 g/dL Bilirubin, Total 0.4 0.0-1.2 mg/dL Bilirubin, Direct 0.11 0.00-0.40 mg/dL Alkaline Phosphatase 87 44-121 IU/L AST (SGOT) 16 0-40 IU/L ALT (SGPT) 12 0-44 IU/L Lipid Panel-[id number] Reviewed date:03/10/2024 09:57:06 AM Interpretation: Performing Lab:[facility], [address] [facility], [place], Phone - [phone], Director - MDJoy Notes/Report: Cholesterol, Total 191 100-199 mg/dL Triglycerides 105 0-149 mg/dL HDL Cholesterol 45 >39 mg/dL VLDL Cholesterol Edis 19 5-40 mg/dL LDL Chol Calc ([facility]) 127 0-99 mg/dL LDL Calc Comment: Hepatic Function Panel [id number] Reviewed date:06/23/2024 12:47:58 PM Interpretation: Performing Lab:[facility] [place], [address], [place], Phone - [phone], Director - Shiva Notes/Report: Albumin 4.2 3.8-4.9 g/dL Bilirubin, Total 0.4 0.0-1.2 mg/dL Bilirubin, Direct 0.14 0.00-0.40 mg/dL Alkaline Phosphatase 110 44-121 IU/L AST (SGOT) 16 0-40 IU/L ALT (SGPT) 14 0-44 IU/L Lipid Panel-[id number] Reviewed date:06/23/2024 12:47:58 PM Interpretation: Performing Lab:[facility] [place], [address], [place], Phone - [phone], Director - Shiva Notes/Report: Cholesterol, Total 98 100-199 mg/dL Triglycerides 84 0-149 mg/dL HDL Cholesterol 42 >39 mg/dL VLDL Cholesterol Edis 17 5-40 mg/dL LDL Chol Calc ([facility]) 39 0-99 mg/dL LDL Calc Comment: REASON FOR REFERRAL Reason Screening colonoscop y Diagnosis 1 Screening for colon cancer (Z12.11) Referral Organization Cruzito Rondon Md Referring Provider First Name Cruzito Referring Provider Last Name Alcon Referring Provider Speciality Internal M edicine Referred Provider [facility], Ref erral Services Referred Provider Specialty Gastroentero logy General Notes Erica Newton 2023 09:23:02 AM EDT > P2P Sent.Christine Susan 12/02/2023 09:30:57 AM EDT > Patient already [...] Referral Priority Routine Referral Appointment Date 12/07/2024 Reason Consultation Diagnosis 1 Left hip pain (M25.5 52) Referral Organization Cruzito Rondon Md Referring Provider First Name Cruzito Referring Provider Last Name Alcon Referring Provider Speciality Internal M edicine Referred Provider Specialty Orthopedic S urgery General Notes Skylar Frost 09/18 09:36:59 AM EDT > Faxed paperwork to Christine CHRISTIE Susan 10/11/2024 08:21:42 AM EDT > PRATIK pt # [id number] on 10/09 LVM for patient to call office and make apptMargot Kirsten 10/12/2024 01:12:05 PM EDT > Letter sent to pt. Referral Priority Routine MEDICATIONS Medication SIG (Take, Route, Frequency, Duration) Notes Start Date End Date Status Lisinopril 10 MG TAKE 1 TABLET BY [...] tablet Orally Once a day Active Creon 6000-16760 UNIT as directed Orally Active Rosuvastatin Calcium 20 MG 1 tablet Oral ly Once a day for 90 Days Active Ezetimibe 10 MG 1 tablet Orally Once a day for 90 Days Active SOCIAL HISTORY Tobacco Use: Social History [...] Problem Vitamin D deficiency (E55.9) Active confirmed 74501154 Problem Tobacco abuse (Z72.0) Active confirmed 669944075 Problem Mixed hyperlipidemia (E78.2) Active confirmed 987387317 Problem Overactive bladder (N32.81) Active confirmed 363985486 Problem Essential hypertension (I10) Active confirmed 98531931 Problem Nicotine use disorder (F17.200) Active confirmed 16389162 Problem Ocular migraine (G43.109) Active confirmed 11409571 Problem Benign prostatic hyperplasia with lower urinary tract symptoms (N40.1) Active confirmed 0802044276311 Problem Chronic bipolar disorder (F31.9) Active confirmed 48714566 VITAL SIGNS Heart Rate 78 /min 09/29/2024 Blood pressure diastolic 70 mm Hg 09/29/2024 Height 70 in 09/29/2024 Blood pressure systolic 124 mm Hg 09/29/2024 Weight 241.4 lbs 09/29/2024 BMI 34.63 kg/m2 09/29/2024 PROCEDURES Procedure Date Ordered Date Performed Result Body Sit e EAR IRRIGATION 03/23/2024 N/A Encounters Encounter Location Date Provider Diagnosis [address] [address] 10/30/2023 Cruzito Rondon Md [address] [place] [id number] 11/10/2023 Cruzito Rondon Acute prostatitis N4 1.[address] [address] 11/11/2023 Cruzito Rondon Acute prostatitis N4 1.[address] [address] 12/02/2023 Cruzito Rondon Annual physical exam Z00.00 ; Vitamin D deficiency E55.9 ; Ocular migraine G43.109 ; Screening for colon cancer Z12.11 ; Essential hypertension I10 and Impacted cerumen of both ears H61.[address] [address] 12/02/2023 Cruzito Rondon Essential hypertensi on I10 [address] [address] 12/08/[address] [address] 12/17/2023 Cruzito Rondon Mixed hyperlipidemia E78.2 ; Essential hypertension I10 ; Chronic bipolar disorder F31.9 ; Ocular migraine G43.109 ; Vitamin D deficiency E55.9 and Tobacco abuse Z72.[address] [address] 01/12/2024 Cruzito vanessa [address] [address] 2024 Cruzito Rondon Mixed hyperlipidemia E78.2 ; Essential hypertension I10 ; Chronic bipolar disorder F31.9 ; Ocular migraine G43.109 ; Benign prostatic hyperplasia with lower urinary tract symptoms N40.1 ; Vitamin D deficiency E55.9 and Tobacco abuse Z72.[address] [address] 03/23/2024 Cruzito Rondon Bilateral impacted cerumen H61.[address] [address] 06/21/2024 Cruzito Rondon [address] [address] 06/29/2024 Cruzito Rondon Mixed hyperlipidemia E78.2 ; Essential hypertension I10 ; Chronic bipolar disorder F31.9 ; Ocular migraine G43.109 ; Benign prostatic hyperplasia with lower urinary tract symptoms N40.1 ; Vitamin D deficiency E55.9 ; Tobacco abuse Z72.0 and Polyarthralgia M25.[address] [address] 09/29/2024 Cruzito Rondon Mixed hyperlipidemia E78.2 ; Essential hypertension I10 ; Chronic bipolar disorder F31.9 ; Ocular migraine G43.109 ; Benign prostatic hyperplasia with lower urinary tract symptoms N40.1 ; Polyarthralgia M25.50 ; Vitamin D deficiency E55.9 ; Tobacco abuse Z72.0 ; Overactive bladder N32.81 and Left hip pain M25.[address] [address] 09/30/2024 Cruzito Rondon ASSESSMENTS Encounter Date Diagnosis Assessment Notes Treatment Notes Treatment Clinical Notes 11/10/2023 Acute prostatitis (ICD-10 - N41.0) 11/11/2023 Acute prostatitis (ICD-10 - N41.0) 12/02/2023 Essential hypertension (ICD-10 - I10) 12/17/2023 Essential hypertension (ICD-10 - I10) 12/17/2023 Mixed hyperlipidemia (ICD-10 - E78.2) 2024 Essential hypertension (ICD-10 - I10) 2024 Mixed hyperlipidemia (ICD-10 - E78.2) 06/29/2024 Essential hypertension (ICD-10 - I10) 06/29/2024 Mixed hyperlipidemia (ICD-10 - E78.2) 09/29/2024 Essential hypertension (ICD-10 - I10) 09/29/2024 Mixed hyperlipidemia (ICD-10 - E78.2) 03/23/2024 Bilateral impacted cerumen (ICD-10 - H61.23) With patient's verbal consent bilateral ear lavage performed with good results. Over 20 minutes was spent in direct patient contact performing the procedure. M.D. examining the patient before and after the procedure. 12/02/2023 Vitamin D deficiency (ICD-10 - E55.9) 12/02/2023 Annual physical exam (ICD-10 - Z00.00) 09/29/2024 Chronic bipolar disorder (ICD-10 - F31.9) 12/02/2023 Ocular migraine (ICD-10 - G43.109) 06/29/2024 Chronic bipolar disorder (ICD-10 - F31.9) 2024 Chronic bipolar disorder (ICD-10 - F31.9) 12/17/2023 Chronic bipolar disorder (ICD-10 - F31.9) 09/29/2024 Ocular migraine (ICD-10 - G43.109) 12/02/2023 Screening for colon cancer (ICD-10 - Z12.11) 06/29/2024 Ocular migraine (ICD-10 - G43.109) 2024 Ocular migraine (ICD-10 - G43.109) 12/17/2023 Ocular migraine (ICD-10 - G43.109) 09/29/2024 Benign prostatic hyperplasia with lower urinary tract symptoms (ICD-10 - N40.1) 12/02/2023 Essential hypertension (ICD-10 - I10) 06/29/2024 Benign prostatic hyperplasia with lower urinary tract symptoms (ICD-10 - N40.1) 2024 Benign prostatic hyperplasia with lower urinary tract symptoms (ICD-10 - N40.1) 12/17/2023 Vitamin D deficiency (ICD-10 - E55.9) 09/29/2024 Polyarthralgia (ICD-10 - M25.50) 06/29/2024 Vitamin D deficiency (ICD-10 - E55.9) 12/02/2023 Impacted cerumen of both ears (ICD-10 - H61.23) 2024 Vitamin D deficiency (ICD-10 - E55.9) 12/17/2023 Tobacco abuse (ICD-10 - Z72.0) Smoking cessation encouraged various treatment options discussed with patient. 09/29/2024 Vitamin D deficiency (ICD-10 - E55.9) 06/29/2024 Tobacco abuse (ICD-10 - Z72.0) Smoking cessation encouraged various treatment options discussed with patient. 2024 Tobacco abuse (ICD-10 - Z72.0) Smoking cessation encouraged various treatment options discussed with patient. 09/29/2024 Tobacco abuse (ICD-10 - Z72.0) 06/29/2024 Polyarthralgia (ICD-10 - M25.50) 09/29/2024 Overactive bladder (ICD-10 - N32.81) 09/29/2024 Left hip pain (ICD-10 - M25.552) 12/02/2023 Other This chart has been transcribed by a computerized dictation system. There are likely to be multiple automatic maintainer inaccuracies despite chart review. 12/17/2023 Other This chart has been transcribed by a computerized dictation system. There are likely to be multiple automatic maintainer inaccuracies despite chart review. 2024 Other This chart has been transcribed by a computerized dictation system. There are likely to be multiple automatic maintainer inaccuracies despite chart review. 03/23/2024 Other This chart has been transcribed by a computerized dictation system. There are likely to be multiple automatic maintainer inaccuracies despite chart review. 06/29/2024 Other This chart has been transcribed by a computerized dictation system. There are likely to be multiple automatic maintainer inaccuracies despite chart review. 09/29/2024 Other This chart has been transcribed by a computerized dictation system. There are likely to be multiple automatic maintainer inaccuracies despite chart review. PLAN OF TREATMENT Pending Test Test Name Order Date X ray : Hip, left 09/29/2024 X ray : Femur, left 09/29/2024 GUAIAC, SINGLE SPECIMEN 12/02/2023 EAR IRRIGATION 03/23/2024 25OH VITAMIN D 09/24/2023 CBC (COMPLETE BLOOD COUNT) WITH DIFF 12/2023 COMPREHENSIVE METABOLIC PANEL 09/24/2023 PSA, SCREEN 09/24/2023 THYROID PANEL (TSH, FT4) 09/24/2023 URINALYSIS, COMPLETE 09/24/2023 Hepatic Function Panel [id number] 2024 Lipid Panel-[id number] 09/29/2024 Lipid Panel-[id number] 12/02/2023 Next Appt Details Provider Name:Cruzito abdullahi, 12/31/2024 07:45:00 AM, [address] [place] [address], [phone], Insurance Providers Payer Name Payer Address Payer Phone Subscriber Number Group Number Insured Name Patient Relationship to Insured Coverage Start Date Coverage End Date [facility] [address] [place] [phone] [id number] Clifton Juárez Self - patient is the insured MEDICAL (GENERAL) HISTORY Surgical History Surgery Date(Month/Year) Tubes in Ear 1971- Tonsilectomy 1976 Cholecystecomy 2015 Hospitalization History Reason Date(Month/Year) For Above Procedures
--- OUTSIDE RECORDS SUMMARY | 2024-10-26 11:09 | XMS_ITS ---
Author Organization Alcon Castro Address [address] [place] [phone] Care Team Providers Care Stitch Bonding Machine Tender Name Role Phone Cruzito Rondon Primary Care Provider [phone] ALLERGIES Allergen (clinical drug ingredient) Drug/Non Drug [...] Orally O nce a day Active Creon 6000-29103 UNIT as directed Orally Active Tamsulosin HCl [...] points) Points 2 Interpretation Negative VITAL SIGNS Height 70 in 06/29/2024 Weight 235.8 lbs 06/29/2024 BMI 33.83 kg/m2 06/29/2024 Blood pressure systolic 120 mm Hg 06/29/20 24 Blood pressure diastolic 80 mm Hg 024 Heart Rate 80 /min 06/29/2024 Encounters Encounter Location Date Provider Diagnosis [facility] Castro [address] [place] [address] 06/29/2024 Cruzito Rondon Mixed hyperlipidemia E78.2 ; [...] system. There are likely to be multiple casting and curing operator inaccuracies despite chart review. PLAN OF TREATMENT [...] system. There are likely to be multiple casting and curing operator inaccuracies despite chart review. Referrals Referral Date Details 12/07/2024 12/07/2024, Consulta tielisha Next Appt Details Follow Up: 3 Months, Reason: Follow-up Provider Name:Cruzito abdullahi, 12/31/2024 07:45:00 AM, [address] [place] [address], [phone], Progress Notes * Examination Category Sub-Category Detail [...]
--- OUTSIDE RECORDS SUMMARY | 2024-10-26 11:09 | XMS_ITS ---
Author Organization Alcon Castro Address [address] [place] [phone] Care Team Providers Care Printmaker Name Role Phone Cruzito Rondon Primary Care Provider ALLERGIES Allergen (clinical drug ingredient) Drug/Non Drug Allergy documented on EMR Reaction Allergy Type Onset Date Status paroxetine Paxil Unknown Drug Allergy Active gabapentin Gabapentin Unknown Drug Allergy Activ e Penicillin Unknown Drug Allergy Active REASON FOR VISIT (IN OFFICE), Follow Up, [...] day for 90 Days 09/29/2024 Active Creon 6000-77830 UNIT as directed Orally Active Rosuvastatin Calcium [...] Notes Problem Overactive bladder (N32.81) Active confirmed 298973106 VITAL SIGNS Height 70 in 09/29/2024 Weight 241.4 lbs 09/29/2024 BMI 34.63 kg/m2 09/29/2024 Blood pressure systolic 124 mm Hg 09/30/19 25 Blood pressure diastolic 70 mm Hg 025 Heart Rate 78 /min 09/29/2024 Encounters Encounter Location Date Provider Diagnosis [address] [address] 09/29/2024 Cruzito Rondon Mixed hyperlipidemia E78.2 ; [...] system. There are likely to be multiple income tax consultant inaccuracies despite chart review. PLAN OF TREATMENT [...] system. There are likely to be multiple income tax consultant inaccuracies despite chart review. Pending Test Test Name Order Date X ray : Hip, left 09/29/2024 X ray : Femur, left 09/29/2024 Hepatic Function Panel [id number] 2024 Lipid Panel-[id number] 09/29/2024 Next Appt Details Follow Up: 3 Months, Reason: Follow-up Provider Name:Cruzito abdullahi, 12/31/2024 07:45:00 AM, [address] [place] [address], [phone], Progress Notes * Examination Category Sub-Category Detail Notes General Examination GENERAL APPEARANCE: in no ac andrey distress, well developed, well nourished HEAD: normocephalic, [...]
--- OUTSIDE RECORDS SUMMARY | 2024-10-26 11:09 | XMS_ITS ---
Author Organization Alcon Castro Address [address] [place] [address] Care Team Providers Care Manager Channel Name Role Phone Cruzito Rondon Primary Care Provider REASON FOR VISIT Message Encounters Encounter Location Date Provider Diagnosis Alcon Castro [address] [address] 10/01/19 Cruzito Rondon PLAN OF TREATMENT Next Appt Details Provider Name:Cruzito abdullahi, 12/31/2024 07:45:00 AM, [address] [place] [address], [phone],
== END 2024-10-26 10:39 | disposition home or self-care (01) ==
LOC: HO.HGI 09:45
PROVIDERS: PCP Internal Medicine; Visit Provider Nurse Practitioner
DX: K58.2 Mixed irritable bowel syndrome (principal)
CPT/HCPCS: 99213

== ENCOUNTER → 2024-10-26 09:45 | Outpatient (BNVA) | payer OTHER, SELFPAY | PROVIDERS: PCP Internal Medicine; Visit Provider Nurse Practitioner ==

== ENCOUNTER 2025-01-19 09:55 | Outpatient (AMB) | payer OTHER, SELFPAY ==
--- OUTSIDE RECORDS SUMMARY | 2024-09-30 10:26 | XMS_ITS ---
Author Organization Alcon Castro Address [address] [place] [address] Care Team Providers Care A Operator Name Role Phone Cruzito Rondon Primary Care Provider [phone] REASON FOR VISIT Message Encounters Encounter Location Date Provider Diagnosis Alcon Castro [address] [address] 10/01/19 Cruzito Rondon PLAN OF TREATMENT Next Appt Details Provider Name:Cruzito abdullahi, 04/13/2025 08:45:00 AM, [address] [place] [address], [phone],
--- NOTE | 2025-01-19 09:58 | MHC.OFFVIS ---
Vital Signs 01/19/25 10:12 Height 5 ft 10 in Weight 235 lb 14.314 oz BMI 33.8 BP 130/81 Blood Pressure Location Lt brachial Position Sitting Pulse 87 Oxygen Delivery Method Room Air Intake Visit Reasons: 3m medication Intake Note: Patient follow up for IBS medication refill. Patient cc: Stomach pains, diarrhea, issues since he was last since. He said there was a possibility of a medication not digesting or the pill capsule did not digest - he seen in the toilet. Diarrhea becomes watery stools that do not stop. Ductfixing Plumber Required: No Accompanied by: Self / Same As Patient Allergies cefadroxil (From Duricef) Allergy (Severe, Verified 01/19/25 10:28) Anaphylaxis paroxetine (From Paxil) Allergy (Severe, Verified 01/19/25 10:28) Swelling Penicillins Allergy (Severe, Verified 01/19/25 10:28) Hives gabapentin Allergy (Unknown, Verified 01/19/25 10:28) Rage SSRI Allergy (Severe, Uncoded 01/19/25 10:28) Swelling HPI HPI 3m medication: Details: Assessment & Plan (1) Irritable bowel syndrome with both constipation and diarrhea: Code(s): K58.2 - Mixed irritable bowel syndrome Category: Medical Plan He is still having fecal accidents/incontinence and both loose stools, cramping and he sees undigested foods. However, he is not taking his full dose of creon, only taking 1 a day. BUT he is not getting enough creon from his pharmacy and if I take 4 a day I run out. He mentions that he slipped on the ice this winter and it was causing him left-sided hip and leg pain. ROV 3 mos. Medications: Refilled [id number] 36,000-114,000- 180,000 unit (Creon) administer with meals and/or snacks 2 caps PO BID 360 caps 1RF K58.2 - Mixed irritable bowel syndrome TODAYS VISIT He says today that he has not been doing well. About 6 mos ago he started having severe diarrhea. He has had several insults to the GI system including clindamycin for a dental infection, diclofenac, new med is losartan and his clonidine was changed to a long acting formula. He IS taking the creon as directed and getting full dose now. He is s/p jason and has a hx of PUD (? bile related). He eats twice a day and but the diarrhea is post pranidal. He tried stopping milk, coffee, and soda. Start cholestyramine and get fecal emely, CRP, prometheus IBD to exclude IBD. Negative rast allergy test. ROV 6 weeks. PFSH Medical History Prematurity, weight 500-749 grams, with less than 24 completed weeks of gestation History of sepsis Gallstone pancreatitis Surgical History H/O colonoscopy History of sphincterotomy of sphincter of Oddi History of cholecystectomy Hx of tonsillectomy Hx of tympanostomy tubes Family History Mother Diverticulitis Father Diverticulosis Colitis Paternal Aunt Breast cancer Maternal Aunt Cancer Social History Alcohol intake: current Alcohol intake frequency: holidays/special occasions only Patient Tobacco Use Status: Current everyday Tobacco user Tobacco use type: Cigarette Cigarette Packs Per Day: 1 Cigarettes Per Day: 20.0 Second Hand Smoke Exposure: No Review of Systems Const Denies fatigue, Denies fever(s), Denies night sweats, Denies poor appetite and Denies weight loss Eyes Details: glasses Reports requires corrective lenses ENT Reports Normal hearing present, Denies dental pain, Denies dysphagia, Denies hearing loss, Denies mouth pain, Denies odynophagia, Denies throat swelling, Denies tongue swelling and Reports other (Dentition adequate) Card Reports no additional complaints Resp Reports no additional complaints GI Details: Denies abdominal pain, Denies melena, Denies bloating, Denies hematochezia, Denies constipation, Denies GI cramping, Denies dysphagia, Denies excessive flatus, Denies early satiety, Denies heartburn, Reports diarrhea, Denies nausea, Denies odynophagia, Denies vomiting and Denies hematemesis Skin/Breast Denies pruritus, Denies lesions, Denies rash and Denies jaundice Neuro Reports Normal hearing present and Denies Abnormal speech present Endo Denies fatigue Aller/Immun Denies throat swelling and Denies tongue swelling Physical Exam Vital Signs: Last Vital Signs Pulse 87 01/19/25 10:12 BP 130/81 01/19/25 10:12 Oxygen Delivery Method Room Air 01/19/25 10:12 BMI result Body Mass Index 33.8 Const General: cooperative, no acute distress, well developed and well groomed Nutritional Appearance: well nourished and obese Orientation/consciousness: oriented to person, oriented to place and oriented to time Limitations: No language barrier HEENT Head: Yes normocephalic and Yes atraumatic Eyes General: appearance normal, both eyes and all related structures Pupils: Equal, round and reactive pupils present Neck Neck: Yes normal visual inspection and Yes no lymphadenopathy Thyroid: Thyroid normal Resp Effort & Inspection: normal respiratory effort and able to speak in complete sentences Auscultation: clear to auscultation bilaterally Cardio Rate: regular rate Rhythm: regular rhythm Heart sounds: Normal, physiologic split S2 sound present Peripheral pulses: radial pulses present and posterior tibial pulses present GI Inspection: No distended, No Abdominal panniculus present and Yes obesity Palpation (GI): Soft to palpation, nontender, no guarding, not rigid and No hepatosplenomegaly present Percussion: Yes normal to percussion Auscultation: normal bowel sounds Rectal Exam - Male: Yes deferred Skin General skin exam: no rashes or lesions noted, turgor normal, skin not dry, no jaundice, No spider nevi and no striae Rashes: no rashes Nails: normal Neuro General: oriented to person, oriented to place and oriented to time Cranial nerves: Yes Equal, round and reactive pupils present and Yes Normal hearing present Speech: No Abnormal speech present Extrem General: Yes normal to inspection, No clubbing, No cyanosis and No edema Psych Appearance: grossly normal and well kempt Mental Status: mental status grossly normal Speech and movement: Normal speech and movement present Affect: normal affect Attitude: cooperative Thought process: Normal thought process present and not confabulating Thought content: Normal thought content present Insight: Limited insight present (Psych) Judgement: Limited judgement present (Psych) Assessment & Plan Assessment & Plan (1) Diarrhea: Code(s): R19.7 - Diarrhea, unspecified Category: Medical Plan He says today that he has not been doing well. About 6 mos ago he started having severe diarrhea. He has had several insults to the GI system including clindamycin for a dental infection, diclofenac, new med is losartan and his clonidine was changed to a long acting formula. He IS taking the creon as directed and getting full dose now. He is s/p jason and has a hx of PUD (? bile related). He eats twice a day and but the diarrhea is post pranidal. He tried stopping milk, coffee, and soda. Start cholestyramine and get fecal emely, CRP, prometheus IBD to exclude IBD. Negative rast allergy test. ROV 6 weeks. Orders: Orders C Reactive Protein Today R19.7 - Diarrhea, unspecified Calprotectin, Fecal Today R19.7 - Diarrhea, unspecified Ova and Parasite Today R19.7 - Diarrhea, unspecified Prometheus IBD SGI Today R19.7 - Diarrhea, unspecified Medications: New cholestyramine (with sugar) 4 gram administer w/meal; avoid other meds within 1hr before or 4-6hr after dose 4 grams PO BID 60 ea 3RF R19.7 - Diarrhea, unspecified Coding Level of Care Code Est Pt Level 4 (56833) Diagnoses Diarrhea R19.7 Time Spent (min) 39
[2025-01-19 10:12] VITALS: BP 130/81; PULSE 87; BMI 33.8
--- OUTSIDE RECORDS SUMMARY | 2025-01-19 10:19 | XMS_ITS ---
Author Name [facility] Organization Unknown Encounters Encounter Type Encounter Reason Primary Diagnosis Location Date Ambulatory [facility]. ([facility]) 06/25/2024
--- OUTSIDE RECORDS SUMMARY | 2025-01-19 10:20 | XMS_ITS | Patient Health Record ---
Author Organization vanessa Castro Address [address] [place] [address] Care Team Providers Care Infrastructure Security Architect Name Role Phone Cruzito Rondon Primary Care Provider [phone] ALLERGIES Allergen (clinical drug ingredient) Drug/Non Drug Allergy documented on EMR Reaction Allergy Type Onset Date Status paroxetine Paxil Unknown Drug Allergy Active gabapentin Gabapentin Unknown Drug Allergy Activ e Penicillin Unknown Drug Allergy Active RESULTS Component Value Reference Range Notes Hepatic Function Panel ([id number] Reviewed date:06/23/2024 12:47:58 PM Interpretation: Performing Lab:[facility], [address] [facility], Phone - [phone], Director - MDJoy Notes/Report: Albumin 4.2 3.8-4.9 g/dL Bilirubin, Total 0.4 0.0-1.2 mg/dL Bilirubin, Direct 0.14 0.00-0.40 mg/dL Alkaline Phosphatase 110 44-121 IU/L AST (SGOT) 16 0-40 IU/L ALT (SGPT) 14 0-44 IU/L Lipid Panel-[id number] Reviewed date:06/23/2024 12:47:58 PM Interpretation: Performing Lab:[facility], [address] [place], [place], Phone - [phone], Director - MDJoy Notes/Report: Cholesterol, Total 98 100-199 mg/dL Triglycerides 84 0-149 mg/dL HDL Cholesterol 42 >39 mg/dL VLDL Cholesterol Edis 17 5-40 mg/dL LDL Chol Calc ([facility]) 39 0-99 mg/dL LDL Calc Comment: Hepatic Function Panel ([id number] Reviewed date:12/25/2024 10:11:26 AM Interpretation: Performing Lab:[facility] [place], [address] , [place], Phone - [phone], Director - Shiva Notes/Report: Albumin 4.4 3.8-4.9 g/dL Bilirubin, Total 0.5 0.0-1.2 mg/dL Bilirubin, Direct 0.16 0.00-0.40 mg/dL Alkaline Phosphatase 92 44-121 IU/L AST (SGOT) 16 0-40 IU/L ALT (SGPT) 19 0-44 IU/L Lipid Panel-[id number] Reviewed date:12/25/2024 10:11:26 AM Interpretation: Performing Lab:[facility] [place], [address] , [place], Phone - [phone], Director - Shiva Notes/Report: Cholesterol, Total 127 100-199 mg/dL Triglycerides 126 0-149 mg/dL HDL Cholesterol 47 >39 mg/dL VLDL Cholesterol Edis 22 5-40 mg/dL LDL Chol Calc ([facility]) 58 0-99 mg/dL LDL Calc Comment: REASON FOR REFERRAL Reason Consultation Diagnosis 1 Polyarthralgia (M25. 50) Referral Organization [facility]odn [facility] Referring Provider First Name Cruzito Referring [...] 08:21:42 AM EDT > PRATIK pt # [id number] on 10/09 LVM for patient to call office and make apptMargot Kirsten 10/12/2024 01:12:05 PM EDT > Letter sent to pt. Referral Priority Routine Reason Consultation Diagnosis 1 Overactive bladder ( N32.81) Referral Organization [facility] Referring Provider First Name Cruzito Referring Provider Last Name Alcon Referring Provider Speciality Internal M edicine Referred Provider Specialty Urology General Notes BeatrizRicha 09:19:53 AM EDT > Faxed over [facility] form , DamianascencionRicha 12/31/2024 11:42:35 AM EDT > check faxes patient was scheduled, DamiankaneRicha valerio 12/31/2024 12:45:22 PM EDT > pt was scheduled 03/30 at 9am with labs faxed Clinical Notes [facility] , Ph: [phone] F: [phone] Referral Priority Urgent Referral Appointment Date 03/30/2025 MEDICATIONS Medication SIG (Take, Route, Frequency, Duration) Notes Start Date End Date Status Tamsulosin HCl 0.4 MG 1 capsule Orally O nce a day Active Rosuvastatin Calcium 20 MG TAKE 1 TABLET BY MOUTH EVERY DAY for 90 Active Rosuvastatin Calcium 20 MG 1 tablet Orally Once a day for 90 Days Active Lisinopril 10 MG TAKE 1 TABLET BY NISA TH EVERY DAY for 90 Active Ezetimibe 10 MG 1 tablet Orally Once a day for 90 Days Active cloNIDine HCl ER 0.1 MG TAKE 1 TABLET BY MOUTH EVERY DAY IN THE MORNING Oral Active Mirtazapine 15 MG 1 tablet at bedtime Orally Once a day Active oxyBUTYnin Chloride ER 15 MG 1 tablet Orally Once a day for 30 days Not-Taking Rizatriptan Benzoate 10 MG 1 tablet Orally Once a day Active Creon 6000-20020 UNIT as directed Orally Active Vitamin D3 50 MCG (2000 UT) 1 capsule Orally Once a day Active tiZANidine HCl 2 MG Oral Active Losartan Potassium 25 MG 1 tablet Orally Once a day for 30 day(s) Active Diclofenac Sodium 75 MG Oral for 30 Active Vitamin D3 50 MCG (2000 UT) TAKE 1 CAPSULE BY MOUTH EVERY DAY [...] Problem Vitamin D deficiency (E55.9) Active confirmed 04912591 Problem Tobacco abuse (Z72.0) Active confirmed 314664799 Problem Mixed hyperlipidemia (E78.2) Active confirmed 920222460 Problem Overactive bladder (N32.81) Active confirmed 672720574 Problem Essential hypertension (I10) Active confirmed 65314772 Problem Nicotine use disorder (F17.200) Active confirmed 52999213 Problem Ocular migraine (G43.109) Active confirmed 11572134 Problem Benign prostatic hyperplasia with lower urinary tract symptoms (N40.1) Active confirmed 2624212372688 Problem Chronic bipolar disorder (F31.9) Active confirmed 31986997 Problem Autism spectrum disorder (F84.0) Active confirmed 09811182 VITAL SIGNS Heart Rate 84 /min 01/13/2025 Blood pressure diastolic 84 mm Hg 01/13/2025 Height 70 in 01/13/2025 Blood pressure systolic 138 mm Hg 01/13/2025 Weight 240 lbs 01/13/2025 BMI 34.43 kg/m2 01/13/2025 PROCEDURES Procedure Date Ordered Date Performed Result Body Sit e EAR IRRIGATION 03/23/2024 N/A Encounters Encounter Location Date Provider Diagnosis [address] [address] 2024 Cruzito Rondon Mixed hyperlipidemia E78.2 ; Essential hypertension I10 ; Chronic bipolar disorder F31.9 ; Ocular migraine G43.109 ; Benign prostatic hyperplasia with lower urinary tract symptoms N40.1 ; Vitamin D deficiency E55.9 and Tobacco abuse Z72.[address] [address] 03/23/2024 Cruzito Rondon Bilateral impacted cerumen H61.[address] [address] 06/21/[address] [address] 06/29/2024 Cruzito Rondon Mixed hyperlipidemia E78.2 ; Essential hypertension I10 ; Chronic bipolar disorder F31.9 ; Ocular migraine G43.109 ; Benign prostatic hyperplasia with lower urinary tract symptoms N40.1 ; Vitamin D deficiency E55.9 ; Tobacco abuse Z72.0 and Polyarthralgia M25.[address] [address] 09/29/2024 Cruzito Rondon Mixed hyperlipidemia E78.2 ; Essential hypertension I10 ; Chronic bipolar disorder F31.9 ; Ocular migraine G43.109 ; Benign prostatic hyperplasia with lower urinary tract symptoms N40.1 ; Polyarthralgia M25.50 ; Vitamin D deficiency E55.9 ; Tobacco abuse Z72.0 ; Overactive bladder N32.81 and Left hip pain M25.[address] [address] 09/30/[address] [address] 12/31/2024 Cruzito Rondon Mixed hyperlipidemia E78.2 ; Essential hypertension I10 ; Chronic bipolar disorder F31.9 ; Ocular migraine G43.109 ; Benign prostatic hyperplasia with lower urinary tract symptoms N40.1 ; Polyarthralgia M25.50 ; Overactive bladder N32.81 ; Left hip pain M25.552 ; Vitamin D deficiency E55.9 ; Tobacco abuse Z72.0 ; Other specified cough R05.8 and Autism spectrum disorder F84.[address] [address] 01/13/2025 Cruzito Rondon Essential hypertensi on I10 [...] I10) 01/13/2025 Overactive bladder (ICD-10 - N32.81) 12/31/2024 Essential hypertension (ICD-10 - I10) 12/31/2024 Mixed hyperlipidemia (ICD-10 - E78.2) 09/29/2024 Essential hypertension (ICD-10 - I10) 09/29/2024 Mixed hyperlipidemia (ICD-10 - E78.2) 06/29/2024 Essential hypertension (ICD-10 - I10) 06/29/2024 Mixed hyperlipidemia (ICD-10 - E78.2) 03/23/2024 Bilateral impacted cerumen (ICD-10 - H61.23) With patient's verbal consent bilateral ear lavage performed with good results. Over 20 minutes was spent in direct patient contact performing the procedure. M.D. examining the patient before and after the procedure. 2024 Essential hypertension (ICD-10 - I10) 2024 Mixed hyperlipidemia (ICD-10 - E78.2) 01/13/2025 Mixed hyperlipidemia (ICD-10 - E78.2) 12/31/2024 Chronic bipolar disorder (ICD-10 - F31.9) 09/29/2024 Chronic bipolar disorder (ICD-10 - F31.9) 06/29/2024 Chronic bipolar disorder (ICD-10 - F31.9) 2024 Chronic bipolar disorder (ICD-10 - F31.9) 2024 Ocular migraine (ICD-10 - G43.109) 06/29/2024 Ocular migraine (ICD-10 - G43.109) 01/13/2025 Chronic bipolar disorder (ICD-10 - F31.9) 09/29/2024 Ocular migraine (ICD-10 - G43.109) 12/31/2024 Ocular migraine (ICD-10 - G43.109) 2024 Benign prostatic hyperplasia with lower urinary tract symptoms (ICD-10 - N40.1) 06/29/2024 Benign prostatic hyperplasia with lower urinary tract symptoms (ICD-10 - N40.1) 01/13/2025 Ocular migraine (ICD-10 - G43.109) 09/29/2024 Benign prostatic hyperplasia with lower urinary tract symptoms (ICD-10 - N40.1) 12/31/2024 Benign prostatic hyperplasia with lower urinary tract symptoms (ICD-10 - N40.1) 2024 Vitamin D deficiency (ICD-10 - E55.9) 06/29/2024 Vitamin D deficiency (ICD-10 - E55.9) 09/29/2024 Polyarthralgia (ICD-10 - M25.50) 01/13/2025 Benign prostatic hyperplasia with lower urinary tract symptoms (ICD-10 - N40.1) 12/31/2024 Polyarthralgia (ICD-10 - M25.50) 2024 Tobacco abuse (ICD-10 - Z72.0) Smoking cessation encouraged various treatment options discussed with patient. 06/29/2024 Tobacco abuse (ICD-10 - Z72.0) Smoking cessation encouraged various treatment options discussed with patient. 09/29/2024 Vitamin D deficiency (ICD-10 - E55.9) 12/31/2024 Overactive bladder (ICD-10 - N32.81) 01/13/2025 Polyarthralgia (ICD-10 - M25.50) 01/13/2025 Autism spectrum disorder (ICD-10 - F84.0) 12/31/2024 Left hip pain (ICD-10 - M25.552) 09/29/2024 Tobacco abuse (ICD-10 - Z72.0) 06/29/2024 Polyarthralgia (ICD-10 - M25.50) 01/13/2025 Vitamin D deficiency (ICD-10 - E55.9) 12/31/2024 Vitamin D deficiency (ICD-10 - E55.9) 09/29/2024 Overactive bladder (ICD-10 - N32.81) 01/13/2025 Tobacco abuse (ICD-10 - Z72.0) 12/31/2024 Tobacco abuse (ICD-10 - Z72.0) 09/29/2024 Left hip pain (ICD-10 - M25.552) 12/31/2024 Other specified cough (ICD-10 - R05.8) 12/31/2024 Autism spectrum disorder (ICD-10 - F84.0) 2024 Other This chart has been transcribed by a computerized dictation system. There are likely to be multiple universal branch consultant inaccuracies despite chart review. 03/23/2024 Other This chart has been transcribed by a computerized dictation system. There are likely to be multiple universal branch consultant inaccuracies despite chart review. 06/29/2024 Other This chart has been transcribed by a computerized dictation system. There are likely to be multiple universal branch consultant inaccuracies despite chart review. 09/29/2024 Other This chart has been transcribed by a computerized dictation system. There are likely to be multiple universal branch consultant inaccuracies despite chart review. 12/31/2024 Other This chart has been transcribed by a computerized dictation system. There are likely to be multiple universal branch consultant inaccuracies despite chart review. 01/13/2025 Other This chart has been transcribed by a computerized dictation system. There are likely to be multiple universal branch consultant inaccuracies despite chart review. PLAN OF TREATMENT Pending Test Test Name Order Date X ray : Hip, left 09/29/2024 X ray : Femur, left 09/29/2024 GUAIAC, SINGLE SPECIMEN 12/02/2023 EAR IRRIGATION 03/23/2024 25OH VITAMIN D 09/24/2023 CBC (COMPLETE BLOOD COUNT) WITH DIFF 12/2023 COMPREHENSIVE METABOLIC PANEL 09/24/2023 PSA, SCREEN 09/24/2023 THYROID PANEL (TSH, FT4) 09/24/2023 URINALYSIS, COMPLETE 09/24/2023 Lipid Panel-[id number] 12/02/2023 Next Appt Details Provider Name:Cruzito abdullahi, 04/13/2025 08:45:00 AM, [address] [place], [phone], Insurance Providers Payer Name Payer Address Payer Phone Subscriber Number Group Number Insured Name Patient Relationship to Insured Coverage Start Date Coverage End Date [facility] [address] [place] [address] [phone] [id number] Clifton Juárez Self - patient is the insured MEDICAL (GENERAL) HISTORY Surgical History Surgery Date(Month/Year) Tubes in Ear 1971- Tonsilectomy 1976 Cholecystecomy 2016 Hospitalization History Reason Date(Month/Year) For Above Procedures
--- OUTSIDE RECORDS SUMMARY | 2025-01-19 10:20 | XMS_ITS | Clinical Summary ---
Author Organization [address] [place] [address] Address [address] [place] [address] Phone Care Team Providers Care Hand Violin Maker Name Role Phone Cruzito Rondon MD Primary Care Provider [phone] Allergies Active Allergy Reactions Criticality Noted Date Comments Gabapentin 11/27/2023 Paroxetine Hcl 11/27/2023 Penicillins 11/27/2023 Medications No known medications Encounters Date Type Department Care Team Description 12/20/2024 8:45 AM EDT Office Visit Orthopedic Surgery [place] [address] [phone] Flaco Mccormick DPM Disorder of ligament of ankle, right (Primary Dx); Pain in both feet; Metatarsalgia of right foot; Hammertoes of both [...] Upcoming Encounters Date Type Department Care Team ([facility] st Contact Info) Description 03/22/2025 9:00 AM EDT Office Visit Orthopedic Surgery [facility] [address] [phone] Flaco Mccormick DPM [address] [address] Health Maintenance Due Date Last Done Comments [...] Annual BMP Blood Test 07/07/2024 Influenza Vaccine (#1) 2025 03/18/2024 Hepatitis B Vaccines Completed 06/24/2024, 02/02/2024 [...] patient's age to complete this topic Insurance [facility] Care Teams Hand Violin Maker Relationship Specialty Start Date End Date Cruzito Rondon MD [address] [place] [id number] PCP - General 10/01/23
== END 2025-01-19 11:02 | disposition home or self-care (01) ==
LOC: HO.HGI 09:56
PROVIDERS: PCP Internal Medicine; Visit Provider Nurse Practitioner
DX: R19.7 Diarrhea, unspecified (principal)
CPT/HCPCS: 99214

== ENCOUNTER 2025-01-19 09:55 | Outpatient (REF) | payer OTHER, SELFPAY ==
[2025-01-26 19:53] LABS: Calprotectin, Fecal 105 mcg/g
== END 2025-01-19 09:56 | disposition home or self-care (01) ==
LOC: HO.LAB 09:55
PROVIDERS: PCP Internal Medicine; Visit Provider Nurse Practitioner
DX: R19.7 Diarrhea, unspecified (principal)
CPT/HCPCS: 36415; 81479; 82397; 83520; 83993; 86140; 87177; 87209; 88346; 88350

== ENCOUNTER 2025-03-02 11:58 | Outpatient (AMB) | payer OTHER, SELFPAY ==
--- OUTSIDE RECORDS SUMMARY | 2025-01-13 04:00 | XMS_ITS ---
Author Organization [facility] Address [address] [place] [phone] Care Team Providers Care Clinical Quality Manager Name Role Phone Cruzito Rondon Primary [...] bedtime Orally Once a day Active Creon [id number] UNIT as directed Orally Active Losartan Potassium [...] 01/13/2025 Encounters [facility]counter [facility] Date [facility] [address] [phone] 01/13/2025 Cruzito Rondon Essential hypertensi on I10 [...] system. There are likely to be multiple financial aid director inaccuracies despite chart review. PLAN OF [...] Once a day Vitamin D3 50 MCG (1999) 1 capsule Orally Once a day Mirtazapine 15 MG 1 tablet at bedtime Orally Once a day Losartan Potassium 25 MG 1 tablet Orally Once a day for 30 day(s) Treatment Notes Assessment Notes Other This chart has been transcribed by a computerized dictation system. There are likely to be multiple financial aid director inaccuracies despite chart review. Next Appt Details Follow Up: 3 Months, Reason: Follow up with Kassandra Provider Name:Cruzito Simmons Cory abdullahi, 04/13/2025 08:45:00 AM, [address] [place] [address], [phone], Progress Notes * Examination Category Sub-Category Detail Notes Category Not es General Examination GENERAL APPEARANCE: in no ac [place] distress, well developed, well nourished HEAD: normocephalic, [...]
[2025-03-02 12:08] VITALS: BP 124/72; PULSE 96; BMI 34.9
--- NOTE | 2025-03-02 12:08 | MHC.OFFVIS ---
Vital Signs 03/02/25 12:08 Height 5 ft 10 in Weight 242 lb 15.19 oz BMI 34.9 BP 124/72 Blood Pressure Location Lt brachial Position Sitting Pulse 96 Intake Visit Reasons: 6w fecal emely Intake Note: Patient in office today for lab results. CC: Patient states that he sometimes he has watery stools and other times is soft stools. 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: No Accompanied by: Self / Same As Patient Allergies cefadroxil (From Duricef) Allergy (Severe, Verified 03/02/25 12:12) Anaphylaxis codeine Allergy (Severe, Verified 03/02/25 12:16) mental change paroxetine (From Paxil) Allergy (Severe, Verified 03/02/25 12:12) Swelling Penicillins Allergy (Severe, Verified 03/02/25 12:12) Hives gabapentin Allergy (Unknown, Verified 03/02/25 12:12) Rage SSRI Allergy (Severe, Uncoded 01/19/25 10:28) Swelling HPI HPI 6w fecal emely: Details: Assessment & Plan (1) Diarrhea: Code(s): R19.7 - Diarrhea, unspecified Category: Medical Plan He says today that he has not been doing well. About 6 mos ago he started having severe diarrhea. He has had several insults to the GI system including clindamycin for a dental infection, diclofenac, new med is losartan and his clonidine was changed to a long acting formula. He IS taking the creon as directed and getting full dose now. He is s/p jason and has a hx of PUD (? bile related). He eats twice a day and but the diarrhea is post pranidal. He tried stopping milk, coffee, and soda. Start cholestyramine and get fecal emely, CRP, prometheus IBD to exclude IBD. Negative rast allergy test. ROV 6 weeks. Orders: Orders C Reactive Protein Today R19.7 - Diarrhea, unspecified Calprotectin, Fecal Today R19.7 - Diarrhea, unspecified Ova and Parasite Today R19.7 - Diarrhea, unspecified Prometheus IBD SGI Today R19.7 - Diarrhea, unspecified Medications: New cholestyramine (with sugar) 4 gram administer w/meal; avoid other meds within 1hr before or 4-6hr after dose 4 grams PO BID 60 ea 3RF R19.7 - Diarrhea, unspecified LABS: Laboratory Tests 01/19/25 01/19/25 11:28 13:10 C-Reactive Protein 0.33 Stool Calprotectin 105 Prometheus IBD suggestive of Crohn's disease No over parasites detected 01/2024 colonoscopy showed no visual or pathology/biopsy signs of IBD TODAY'S VISIT Despite the possibility raised by the genetic test and the elevated fecal count Crohn's disease, he had a colonoscopy 01/2024 with no visual evidence or biopsy evidence of inflammatory bowel disease at that time. Although this does not exclude early IBD given the difficulty in diagnosis an exacerbating remitting nature of the disease, some of these could also be attributed to irritation due to over bile production and post cholecystectomy syndrome. RAST allergy panel was negative. The patient is a 54-year-old male presenting with medication management and bowel movement irregularities. He has difficulty coordinating multiple medications like rosuvastatin, Zetia, Creon, losartan, vitamin D, clonidine, tamsulosin, and because of this he has not yet started the regimen for cholestyramine due to constraint of timing and potential interactions, and his variable wake-up schedule. I spent time educating him that many of these interactions that can read about are true with the laboratory but are not very applicable in real life clinical practice. His bowel issues, which include urgency and irregular movements post-cholecystectomy, significantly impact his daily living. The urgency is especially noted postprandially. There is also a history of urinary urgency, especially prominent in cold temperatures, managed with nocturnal tamsulosin. Overall, the conversation pointed towards difficulties with medication regimen . The patient is advised to avoid high fat meals, specifically saturated fats, and instead consume healthier oils. He was counseled to steer clear of heavy fatty foods like fried items to support digestive health post-cholecystectomy. Dietary management remains de la vega for managing his bowel symptoms. Because of the lack of clinical evidence and he is twisting himself into a pretzel over his medication regimen I want him to group please chronic medications into simply a.m. and p.m. reassuring him that it is okay to take many these medications together at the same time. I also think it is more dangerous to his therapy that, with his ADD, he is forgetting doses with this complex schedule then it would be for any absorption issues. This also would clear the way for us to find a way to give him his cholestyramine about an hour or 2 after the medication groupings twice a day to control his stooling. Until I see how he responds to this and we do some repeat labs it would be difficult to say that he has inflammatory bowel disease especially given his normal colonoscopy. All of this was explained to him. Return office visit in 6 weeks [facility] Medical History Prematurity, weight 500-749 grams, with less than 24 completed weeks of gestation History of sepsis Gallstone pancreatitis Surgical History H/O colonoscopy History of sphincterotomy of sphincter of Oddi History of cholecystectomy Hx of tonsillectomy Hx of tympanostomy tubes Family History Mother Diverticulitis Father Diverticulosis Colitis Paternal Aunt Breast cancer Maternal Aunt Cancer Social History Alcohol intake: current Alcohol intake frequency: holidays/special occasions only Patient Tobacco Use Status: Current everyday Tobacco user Tobacco use type: Cigarette Cigarette Packs Per Day: 1 Cigarettes Per Day: 20.0 Second Hand Smoke Exposure: No Review of Systems Const Denies fatigue, Denies fever(s), Denies night sweats, Denies poor appetite and Denies weight loss Eyes Details: Glasses Reports requires corrective lenses ENT Reports Normal hearing present, Denies dental pain, Denies dysphagia, Denies hearing loss, Denies mouth pain, Denies odynophagia, Denies throat swelling, Denies tongue swelling and Reports other (Dentition adequate) Card Reports no additional complaints Resp Reports no additional complaints GI Details: Denies abdominal pain, Denies melena, Denies bloating, Denies hematochezia, Denies constipation, Reports GI cramping, Denies dysphagia, Denies excessive flatus, Denies early satiety, Denies heartburn, Denies diarrhea, Reports loose stools, Denies nausea, Denies odynophagia, Denies vomiting and Denies hematemesis Reports nocturia, Reports urinary frequency and Reports urinary urgency Skin/Breast Denies pruritus, Denies lesions, Denies rash and Denies jaundice Neuro Reports Normal hearing present and Denies Abnormal speech present Psych Reports anxiety and Reports difficulty concentrating Endo Denies fatigue Aller/Immun Denies throat swelling and Denies tongue swelling Physical Exam Vital Signs: Last Vital Signs Pulse 96 03/02/25 12:08 BP 124/72 03/02/25 12:08 BMI result Body Mass Index 34.9 Const General: cooperative, no acute distress, well developed and well groomed Nutritional Appearance: well nourished and obese Orientation/consciousness: oriented to person, oriented to place and oriented to time Limitations: No language barrier HEENT Head: Yes normocephalic and Yes atraumatic Eyes General: appearance normal, both eyes and all related structures Pupils: Equal, round and reactive pupils present Neck Neck: Yes normal visual inspection and Yes no lymphadenopathy Thyroid: Thyroid normal Resp Effort & Inspection: normal respiratory effort and able to speak in complete sentences Auscultation: clear to auscultation bilaterally Cardio Rate: regular rate Rhythm: regular rhythm Heart sounds: Normal, physiologic split S2 sound present Peripheral pulses: radial pulses present and posterior tibial pulses present GI Inspection: No distended, No Abdominal panniculus present and Yes obesity Palpation (GI): Soft to palpation, nontender, no guarding, not rigid and No hepatosplenomegaly present Percussion: Yes normal to percussion Auscultation: normal bowel sounds Rectal Exam - Male: Yes deferred Skin General skin exam: no rashes or lesions noted, turgor normal, skin not dry, no jaundice, No spider nevi and no striae Rashes: no rashes Nails: normal Neuro General: oriented to person, oriented to place and oriented to time Cranial nerves: Yes Equal, round and reactive pupils present and Yes Normal hearing present Speech: No Abnormal speech present Extrem General: Yes normal to inspection, No clubbing, No cyanosis and No edema Psych Appearance: grossly normal and well kempt Mental Status: mental status grossly normal Speech and movement: Normal speech and movement present Affect: normal affect Attitude: cooperative Thought process: not confabulating and Tangential thought process present Thought content: Normal thought content present Insight: Limited insight present (Psych) Judgement: Limited judgement present (Psych) Assessment & Plan Assessment & Plan (1) Diarrhea: Code(s): R19.7 - Diarrhea, unspecified Category: Medical Plan Despite the possibility raised by the genetic test and the elevated fecal count Crohn's disease, he had a colonoscopy 01/2024 with no visual evidence or biopsy evidence of inflammatory bowel disease at that time. Although this does not exclude early IBD given the difficulty in diagnosis an exacerbating remitting nature of the disease, some of these could also be attributed to irritation due to over bile production and post cholecystectomy syndrome. RAST allergy panel was negative. The patient is a 54-year-old male presenting with medication management and bowel movement irregularities. He has difficulty coordinating multiple medications like rosuvastatin, Zetia, Creon, losartan, vitamin D, clonidine, tamsulosin, and because of this he has not yet started the regimen for cholestyramine due to constraint of timing and potential interactions, and his variable wake-up schedule. I spent time educating him that many of these interactions that can read about are true with the laboratory but are not very applicable in real life clinical practice. His bowel issues, which include urgency and irregular movements post-cholecystectomy, significantly impact his daily living. The urgency is especially noted postprandially. There is also a history of urinary urgency, especially prominent in cold temperatures, managed with nocturnal tamsulosin. Overall, the conversation pointed towards difficulties with medication regimen . The patient is advised to avoid high fat meals, specifically saturated fats, and instead consume healthier oils. He was counseled to steer clear of heavy fatty foods like fried items to support digestive health post-cholecystectomy. Dietary management remains de la vega for managing his bowel symptoms. Because of the lack of clinical evidence and he is twisting himself into a pretzel over his medication regimen I want him to group please chronic medications into simply a.m. and p.m. reassuring him that it is okay to take many these medications together at the same time. I also think it is more dangerous to his therapy that, with his ADD, he is forgetting doses with this complex schedule then it would be for any absorption issues. This also would clear the way for us to find a way to give him his cholestyramine about an hour or 2 after the medication groupings twice a day to control his stooling. Until I see how he responds to this and we do some repeat labs it would be difficult to say that he has inflammatory bowel disease especially given his normal colonoscopy. All of this was explained to him. Return office visit in 6 weeks Coding Level of Care Code Est Pt Level 4 (12314) Diagnoses Diarrhea R19.7 Time Spent (min) 37
--- OUTSIDE RECORDS SUMMARY | 2025-03-02 12:48 | XMS_ITS | Clinical Summary ---
Author Organization [address] [place] [address] Address [address] [place] [address] Phone Care Team Providers Care Sailmaker Name Role Phone Cruzito Rondon MD Primary Care Provider [phone] Allergies Active Allergy Reactions Criticality Noted Date Comments Gabapentin 11/27/2023 Paroxetine Hcl 11/27/2023 Penicillins 11/27/2023 Medications No known medications Encounters Date Type Department Care Team Description 12/20/2024 8:45 AM EDT Office Visit Orthopedic Surgery [place] [id number] [phone] Flaco Mccormick DPM Disorder of ligament of [...] Upcoming Encounters Date Type Department Care Team ([facility] st Contact Info) Description 03/22/2025 9:00 AM EDT Office Visit Orthopedic Surgery [facility] [address] [phone] Flaco Mccormick DPM [address] [address] Health Maintenance Due Date Last Done Comments DTaP,Tdap,and Td Vaccines (1 - Tdap) 1991 Pneumococcal Vaccine: 50+ Years (1 of 1 - PCV) 2022 Cholesterol Screening (Lipid Panel) 02/13/2024 Colorectal Cancer Screening: Colonoscopy 02/13/2024 HIV Screening 02/13/2024 Hepatitis C Screening 02/13/2024 Social Influencers of Health Screening 02/13/2024 COVID-19 Vaccine (2 - 2023-2 5 season) 2024 02/02/2024 Zoster Vaccines (2 of 2) 03/29/2024 02/02/2024 Hypertension/CHF/CAD Annual BMP Blood Test 07/07/2024 Depression Screening 07/21/2024 Influenza Vaccine (#1) 2025 03/18/2024 Hepatitis B [...] patient's age to complete this topic Insurance [facility] [employer] Care Teams Sailmaker Relationship Specialty Start Date End Date Cruzito Rondon MD [address] [place] [id number] PCP - General 10/01/23
--- OUTSIDE RECORDS SUMMARY | 2025-03-02 12:48 | XMS_ITS | Patient Health Record ---
Author Organization vanessa Castro Address [address] [place] [address] Care Team Providers Care Director Federal Name Role Phone Cruzito Rondon Primary Care Provider ALLERGIES Allergen (clinical drug ingredient) Drug/Non Drug Allergy documented on EMR Reaction Allergy Type Onset Date Status paroxetine Paxil Unknown Drug Allergy Active gabapentin Gabapentin Unknown Drug Allergy Activ e Penicillin Unknown Drug Allergy Active RESULTS Component Value Reference Range Notes Hepatic Function Panel [id number] Reviewed date:06/23/2024 12:47:58 PM Interpretation: Performing Lab:[facility], [address] [facility], Phone - [phone], Director - MDJoy Notes/Report: Albumin 4.2 3.8-4.9 g/dL Bilirubin, Total 0.4 0.0-1.2 mg/dL Bilirubin, Direct 0.14 0.00-0.40 mg/dL Alkaline Phosphatase 110 44-121 IU/L AST (SGOT) 16 0-40 IU/L ALT (SGPT) 14 0-44 IU/L Lipid Panel-[id number] Reviewed date:06/23/2024 12:47:58 PM Interpretation: Performing Lab:[facility], [address] [facility] [address], [place], Phone - [phone], Director - MDJoy Notes/Report: Cholesterol, Total 98 100-199 mg/dL Triglycerides 84 0-149 mg/dL HDL Cholesterol 42 >39 mg/dL VLDL Cholesterol Edis 17 5-40 mg/dL LDL Chol Calc ([facility]) 39 0-99 mg/dL LDL Calc Comment: Hepatic Function Panel [id number] Reviewed date:12/25/2024 10:11:26 AM Interpretation: Performing Lab:[facility] [place], [address] [facility], [place], Phone - [phone], Director - Shiva Notes/Report: Albumin 4.4 3.8-4.9 g/dL Bilirubin, Total 0.5 0.0-1.2 mg/dL Bilirubin, Direct 0.16 0.00-0.40 mg/dL Alkaline Phosphatase 92 44-121 IU/L AST (SGOT) 16 0-40 IU/L ALT (SGPT) 19 0-44 IU/L Lipid Panel-[id number] Reviewed date:12/25/2024 10:11:26 AM Interpretation: Performing Lab:[facility] [place], [address] [facility], [place], Phone - [phone], Director - Shiva Notes/Report: Cholesterol, Total 127 100-199 mg/dL Triglycerides 126 0-149 mg/dL HDL Cholesterol 47 >39 mg/dL VLDL Cholesterol Edis 22 5-40 mg/dL LDL Chol Calc ([facility]) 58 0-99 mg/dL LDL Calc Comment: [...] 08:21:42 AM EDT > PRATIK pt # [id number] on 10/09 LVM for patient to call [...] EDT > Faxed over [facility] form , BeatrizRicha 12/31/2024 11:42:35 AM EDT > check faxes patient was scheduled, HarrisonRicha valerio 12/31/2024 12:45:22 PM EDT > pt was scheduled 03/30 at 9am with labs faxed Clinical Notes [facility] , Ph: [phone] F: [phone] Referral Priority Urgent Referral Appointment Date 03/30/2025 MEDICATIONS Medication SIG (Take, Route, Frequency, Duration) Notes Start Date End Date Status Tamsulosin HCl 0.4 MG 1 capsule Orally O nce a day for 90 Days Active Losartan Potassium 25 MG 1 tablet [...] tablet Orally Once a day Active Creon [id number] UNIT as directed Orally Active Vitamin D3 50 MCG (1999 UT) 1 capsule Orally Once a day Active tiZANidine HCl 2 MG Oral Active Diclofenac Sodium 75 MG Oral for 30 Active SOCIAL HISTORY Tobacco Use: Social History [...] Problem Vitamin D deficiency (E55.9) Active confirmed 84699631 Problem Tobacco abuse (Z72.0) Active confirmed 836587231 Problem Mixed hyperlipidemia (E78.2) Active confirmed 423254059 Problem Overactive bladder (N32.81) Active confirmed 882495908 Problem Essential hypertension (I10) Active confirmed 25327724 Problem Nicotine use disorder (F17.200) Active confirmed 58272780 Problem Ocular migraine (G43.109) Active confirmed 79273000 Problem Benign prostatic hyperplasia with lower urinary tract symptoms (N40.1) Active confirmed 9853047794226 Problem Chronic bipolar disorder (F31.9) Active confirmed 65156137 Problem Autism spectrum disorder (F84.0) Active confirmed 03662683 VITAL SIGNS Heart Rate 84 /min 01/13/2025 Blood pressure diastolic 84 mm Hg 01/13/2025 Height 70 in 01/13/2025 Blood pressure systolic 138 mm Hg 01/13/2025 Weight 240 lbs 01/13/2025 BMI 34.43 kg/m2 01/13/2025 PROCEDURES Procedure Date Ordered Date Performed Result Body Sit e EAR IRRIGATION 03/23/2024 N/A Encounters Encounter Location Date Provider Diagnosis [address] [phone] 2024 Cruzito Rondon Mixed hyperlipidemia E78.2 ; Essential hypertension I10 ; Chronic bipolar disorder F31.9 ; Ocular migraine G43.109 ; Benign prostatic hyperplasia with lower urinary tract symptoms N40.1 ; Vitamin D deficiency E55.9 and Tobacco abuse Z72.[address] [address] 03/23/2024 Cruzito Rondon Bilateral impacted cerumen H61.[address] [phone] 06/21/2024 Cruzito Rondon [address] [address] 06/29/2024 Cruzito Rondon Mixed hyperlipidemia E78.2 ; Essential hypertension I10 ; Chronic bipolar disorder F31.9 ; Ocular migraine G43.109 ; Benign prostatic hyperplasia with lower urinary tract symptoms N40.1 ; Vitamin D deficiency E55.9 ; Tobacco abuse Z72.0 and Polyarthralgia M25.[address] [address] 09/29/2024 Cruzito Rondon Mixed hyperlipidemia E78.2 ; Essential hypertension I10 ; Chronic bipolar disorder F31.9 ; Ocular migraine G43.109 ; Benign prostatic hyperplasia with lower urinary tract symptoms N40.1 ; Polyarthralgia M25.50 ; Vitamin D deficiency E55.9 ; Tobacco abuse Z72.0 ; Overactive bladder N32.81 and Left hip pain M25.[address] [address] 09/30/2024 Cruzito vanessa [address] [address] 12/31/2024 Cruzito Rondon Mixed hyperlipidemia E78.2 ; Essential hypertension I10 ; Chronic bipolar disorder F31.9 ; Ocular migraine G43.109 ; Benign prostatic hyperplasia with lower urinary tract symptoms N40.1 ; Polyarthralgia M25.50 ; Overactive bladder N32.81 ; Left hip pain M25.552 ; Vitamin D deficiency E55.9 ; Tobacco abuse Z72.0 ; Other specified cough R05.8 and Autism spectrum disorder F84.[address] [address] 01/13/2025 Cruzito Rondon Essential hypertensi on I10 ; Overactive bladder N32.81 ; Mixed hyperlipidemia E78.2 ; Chronic bipolar disorder F31.9 ; Ocular migraine G43.109 ; Benign prostatic hyperplasia with lower urinary tract symptoms N40.1 ; Polyarthralgia M25.50 ; Autism spectrum disorder F84.0 ; Vitamin D deficiency E55.9 and Tobacco abuse Z72.[address] [address] 01/31/[address] [address] 02/07/2025 Cruzito Rondon Benign prostatic hyperplasia with lower urinary tract symptoms N40.1 ASSESSMENTS Encounter Date Diagnosis Assessment Notes Treatment Notes Treatment Clinical Notes Section Notes 02/07/2025 Benign prostatic hyperplasia with lower urinary tract symptoms (ICD-10 - N40.1) 01/13/2025 Essential hypertension (ICD-10 - I10) 01/13/2025 [...] F31.9) 2024 Ocular migraine (ICD-10 - G43.109) 01/13/2025 Chronic bipolar disorder (ICD-10 - F31.9) 06/29/2024 Ocular migraine (ICD-10 - G43.109) 12/31/2024 Ocular migraine (ICD-10 - G43.109) 09/29/2024 Ocular migraine (ICD-10 - G43.109) 01/13/2025 Ocular migraine (ICD-10 - G43.109) 12/31/2024 Benign prostatic hyperplasia with lower urinary tract symptoms (ICD-10 - N40.1) 09/29/2024 Benign prostatic hyperplasia with lower urinary tract symptoms (ICD-10 - N40.1) 06/29/2024 Benign prostatic hyperplasia with lower urinary tract symptoms (ICD-10 - N40.1) 2024 Benign prostatic hyperplasia with lower urinary tract symptoms (ICD-10 - N40.1) 09/29/2024 Polyarthralgia (ICD-10 - M25.50) 12/31/2024 Polyarthralgia (ICD-10 - M25.50) 06/29/2024 Vitamin D deficiency (ICD-10 - E55.9) 2024 Vitamin D deficiency (ICD-10 - E55.9) 01/13/2025 Benign prostatic hyperplasia with lower urinary tract symptoms (ICD-10 - N40.1) 12/31/2024 Overactive bladder (ICD-10 - N32.81) 09/29/2024 Vitamin D deficiency (ICD-10 - E55.9) 01/13/2025 Polyarthralgia (ICD-10 - M25.50) 06/29/2024 Tobacco abuse (ICD-10 - Z72.0) Smoking cessation encouraged various treatment options discussed with patient. 2024 Tobacco abuse (ICD-10 - Z72.0) Smoking cessation encouraged various treatment options discussed with patient. 09/29/2024 Tobacco abuse (ICD-10 - Z72.0) 12/31/2024 Left hip pain (ICD-10 - M25.552) 06/29/2024 Polyarthralgia (ICD-10 - M25.50) 01/13/2025 Autism spectrum disorder (ICD-10 - F84.0) 09/29/2024 Overactive bladder (ICD-10 - N32.81) 12/31/2024 Vitamin D deficiency (ICD-10 - E55.9) 01/13/2025 Vitamin D deficiency (ICD-10 - E55.9) 09/29/2024 Left hip pain (ICD-10 - M25.552) 12/31/2024 Tobacco abuse (ICD-10 - Z72.0) 01/13/2025 Tobacco abuse (ICD-10 - Z72.0) 12/31/2024 Other specified cough (ICD-10 - R05.8) 12/31/2024 Autism spectrum disorder (ICD-10 - F84.0) 2024 Other This chart has been transcribed by a computerized dictation system. There are likely to be multiple paper sealer inaccuracies despite chart review. 03/23/2024 Other This chart has been transcribed by a computerized dictation system. There are likely to be multiple paper sealer inaccuracies despite chart review. 06/29/2024 Other This chart has been transcribed by a computerized dictation system. There are likely to be multiple paper sealer inaccuracies despite chart review. 09/29/2024 Other This chart has been transcribed by a computerized dictation system. There are likely to be multiple paper sealer inaccuracies despite chart review. 12/31/2024 Other This chart has been transcribed by a computerized dictation system. There are likely to be multiple paper sealer inaccuracies despite chart review. 01/13/2025 Other This chart has been transcribed by a computerized dictation system. There are likely to be multiple paper sealer inaccuracies despite chart review. PLAN OF TREATMENT Pending Test Test Name Order Date X ray : Hip, left 09/29/2024 X ray : Femur, left 09/29/2024 GUAIAC, SINGLE SPECIMEN 12/02/2023 EAR IRRIGATION 03/23/2024 25OH VITAMIN D 09/24/2023 CBC (COMPLETE BLOOD COUNT) WITH DIFF 12/2023 COMPREHENSIVE METABOLIC PANEL 09/24/2023 PSA, SCREEN 09/24/2023 THYROID PANEL (TSH, FT4) 09/24/2023 URINALYSIS, COMPLETE 09/24/2023 Lipid Panel-[id number] 12/02/2023 Next Appt Details Provider Name:Cruzito abdullahi, 04/13/2025 08:45:00 AM, [address] [place], [address], Insurance Providers Payer Name Payer Address Payer Phone Subscriber Number Group Number Insured Name Patient Relationship to Insured Coverage Start Date Coverage End Date [facility] [address] [place] [phone] [id number] Clifton Juárez Self - patient is the insured MEDICAL (GENERAL) HISTORY Surgical History Surgery Date(Month/Year) Tubes in Ear 1971- Tonsilectomy 1976 Cholecystecomy 2015 Hospitalization History Reason Date(Month/Year) For Above Procedures
== END 2025-03-02 13:00 | disposition home or self-care (01) ==
LOC: HO.HGI 11:59
PROVIDERS: PCP Internal Medicine; Visit Provider Nurse Practitioner
DX: R19.7 Diarrhea, unspecified (principal)
CPT/HCPCS: 99214

== ENCOUNTER 2025-04-15 08:42 | Outpatient (AMB) | payer OTHER, SELFPAY ==
--- OUTSIDE RECORDS SUMMARY | 2024-12-31 03:45 | XMS_ITS ---
Author Organization [facility] Address [address] [place] [phone] Care Team Providers Care Contracts Analyst Name Role Phone Cruzito Rondon Primary Care Provider [phone] ALLERGIES Allergen (clinical drug ingredient) Drug/Non Drug Allergy documented on EMR Reaction Allergy Type Onset Date Status paroxetine Paxil Unknown Drug Allergy Active gabapentin Gabapentin Unknown Drug Allergy Activ e Penicillin Unknown Drug Allergy Active REASON FOR REFERRAL Reason Consultation Diagnosis 1 Overactive bladder ( N32.81) Referral Organization [facility] Referring Provider First Name Cruzito Referring Provider Last Name Alcon Referring Provider Speciality Internal M edicine Referred Provider Specialty Urology General Notes Richa Henderson 09:19:53 AM EDT > Faxed over PVU form , Richa Henderson 12/31/2024 11:42:35 AM EDT > check faxes patient was scheduled, Richa Henderson 12/31/2024 12:45:22 PM EDT > pt was scheduled 03/30 at 9am with labs faxed Clinical Notes [facility] , Ph: , F: [phone] Referral Priority Urgent Referral Appointment Date 03/30/2025 REASON FOR VISIT (IN OFFICE), Follow Up MEDICATIONS Medication SIG (Take, Route, Frequency, Duration) Notes Start Date End Date Status Diclofenac Sodium 75 MG Oral for 30 Active cloNIDine HCl ER 0.1 MG TAKE 1 TABLET BY MOUTH EVERY DAY IN THE MORNING Oral for 30 Active oxyBUTYnin Chloride ER 15 MG 1 tablet Orally Once a day for 30 days Active Rosuvastatin Calcium 20 MG 1 tablet Oral ly Once a day for 90 Days Active Ezetimibe 10 MG 1 tablet Orally Once a day for 90 Days Active Tamsulosin HCl 0.4 MG 1 capsule Orally O nce a day Active Rosuvastatin Calcium 20 MG TAKE 1 TABLET BY MOUTH EVERY DAY for 90 Active tiZANidine HCl 2 MG Oral for 7 Active Losartan Potassium 25 MG 1 tablet Orally Once a day for 30 day(s) 12/31/2024 Active Vitamin D3 50 MCG (1999 UT) 1 capsule Or ally Once a day Active Ezetimibe 10 MG TAKE 1 TABLET BY NISA TH EVERY DAY for 90 Active Mirtazapine 15 MG 1 tablet at bedtime Orally Once a day Active Rizatriptan Benzoate 10 MG 1 tablet Oral ly Once a day Active Lisinopril 10 MG TAKE 1 TABLET BY NISA TH EVERY DAY for 90 Active Creon 6000-42661 UNIT as directed Orally Active SOCIAL HISTORY Tobacco Use: Social History Observation Description Date Details (start date - stop date) Current Smoker NA - NA Sex Assigned At : Social History Observation Description Sex Assigned At Unknown Tobacco Use/Smoking Question Answer Notes Are you a current smoker PROBLEMS Problem Type ICD Code Onset Dates Problem Status W/U Status Risk SNOMED Code Notes Problem Autism spectrum disorder (F84.0) Active confirmed 68638028 VITAL SIGNS Blood pressure systolic 130 mm Hg 01/01/20 25 Blood pressure diastolic 76 mm Hg 025 Heart Rate 80 /min 12/31/2024 Height 70 in 12/31/2024 Weight 242 lbs 12/31/2024 BMI 34.72 kg/m2 12/31/2024 Encounters Encounter Location Date Provider Diagnosis [address] [address] 12/31/2024 Cruzito Rondon Mixed hyperlipidemia E78.2 ; Essential hypertension I10 ; Chronic bipolar disorder F31.9 ; Ocular migraine G43.109 ; Benign prostatic hyperplasia with lower urinary tract symptoms N40.1 ; Polyarthralgia M25.50 ; Overactive bladder N32.81 ; Left hip pain M25.552 ; Vitamin D deficiency E55.9 ; Tobacco abuse Z72.0 ; Other specified cough R05.8 and Autism spectrum disorder F84.0 ASSESSMENTS Encounter Date Diagnosis Assessment Notes Treatment Notes Treatment Clinical Notes Section Notes 12/31/2024 Mixed hyperlipidemia (ICD-10 - E78.2) 12/31/2024 Essential hypertension (ICD-10 - I10) 12/31/2024 Chronic bipolar disorder (ICD-10 - F31.9) 12/31/2024 Ocular migraine (ICD-10 - G43.109) 12/31/2024 Benign prostatic hyperplasia with lower urinary tract symptoms (ICD-10 - N40.1) 12/31/2024 Polyarthralgia (ICD-10 - M25.50) 12/31/2024 Overactive bladder (ICD-10 - N32.81) 12/31/2024 Left hip pain (ICD-10 - M25.552) 12/31/2024 Vitamin D deficiency (ICD-10 - E55.9) 12/31/2024 Tobacco abuse (ICD-10 - Z72.0) 12/31/2024 Other specified cough (ICD-10 - R05.8) 12/31/2024 Autism spectrum disorder (ICD-10 - F84.0) 12/31/2024 Other This chart has been transcribed by a computerized dictation system. There are likely to be multiple food analyst inaccuracies despite chart review. PLAN OF TREATMENT Medication Medication Name Sig Start Date Stop Date Notes oxyBUTYnin Chloride ER 15 MG 1 tablet Or ally Once a day for 30 days Rosuvastatin Calcium 20 MG 1 tablet Oral ly Once a day for 90 Days Ezetimibe 10 MG 1 tablet Orally Once a day for 90 Days Tamsulosin HCl 0.4 MG 1 capsule Orally Once a day Lisinopril 10 MG 1 tablet Orally Once a day Losartan Potassium 25 MG 1 tablet Orally Once a day for 30 day(s) 12/31/2024 Vitamin D3 50 MCG (1999 UT) 1 capsule Orally Once a day Mirtazapine 15 MG 1 tablet at bedtime Orally Once a day Rizatriptan Benzoate 10 MG 1 tablet Orally Once a day Treatment Notes Assessment Notes Other This chart has been transcribed by a computerized dictation system. There are likely to be multiple food analyst inaccuracies despite chart review. Referrals Referral Date Details 03/30/2025 03/30/2025, Consulta tielisha Next Appt Details Follow Up: 2 Weeks, Reason: Follow up with Kassandra Provider Name:Cruzito abdullahi, 07/06/2025 09:15:00 AM, [address] [place] [address], [phone], Progress Notes * Examination Category Sub-Category Detail Notes Category Not es General Examination GENERAL APPEARANCE: in no ac [place] distress, well developed, well nourished HEAD: normocephalic, [...] chronic tobacco abuse, is here for follow-up. Today he tells me that he was evaluated by orthopedic surgery and received a cortisone injection in his right shoulder with improvement in shoulder pain. He also tells me that the stone layout marker started him on meloxicam but the orthopedic surgeon advised him to try diclofenac. He prefers to try diclofenac. He has not started the medication yet. At his last visit was that the patient's oxybutynin for overactive bladder. He tells me that he remains symptomatic. I advised him to increase the dose to 15 mg by mouth daily. Our office will arrange appointment for him to be evaluated by urology. He also complains of a dry cough. I spent with the patient that lisinopril could be risk also for his dry cough. I advised him to stop lisinopril and try losartan 25 by mouth daily. He also tells me that he saw a psychiatrist and was diagnosed with autism. She has been on Crestor and Zetia for hyperlipidemia without any adverse reaction. I discussed his lab results with him during the visit which show good control of his hyperlipidemia with normal liver enzymes. Consultation Request Notes Referral Date Referring Provider Referred Provider Not ross 12/31/2024 Cruzito Rondon , Consultation
--- OUTSIDE RECORDS SUMMARY | 2025-01-13 04:00 | XMS_ITS ---
Author Organization [facility] Address [address] [place] [phone] Care Team Providers Care Reinsurance Claim Analyst Name Role Phone Cruzito Rondon Primary [...] Duration) Notes Start Date End Date Status Ezetimibe 10 MG 1 tablet Orally Once a day for 90 Days Active cloNIDine HCl ER 0.1 MG TAKE 1 TABLET BY MOUTH EVERY DAY IN THE MORNING Oral Active oxyBUTYnin Chloride ER 15 MG 1 tablet Orally Once a day for 30 days Not-Taking tiZANidine HCl 2 MG Oral Active Vitamin D3 50 MCG (1999) TAKE 1 CAPSULE BY MOUTH EVERY DAY FOR 90 DAYS for 90 Active Tamsulosin HCl 0.4 MG 1 capsule Orally O nce a day Active Rosuvastatin Calcium 20 MG 1 tablet Orally Once a day for 90 Days Active Rizatriptan Benzoate 10 MG 1 tablet Orally Once a day Active Vitamin D3 50 MCG (1999) 1 capsule Orally Once a day Active Diclofenac Sodium 75 MG Oral for 30 Active Rosuvastatin Calcium 20 MG TAKE 1 TABLET BY MOUTH EVERY DAY for 90 Active Lisinopril 10 MG TAKE 1 TABLET BY NISA TH EVERY DAY for 90 Active Mirtazapine 15 MG 1 tablet at bedtime Orally Once a day Active Creon 6000-61005 UNIT as directed Orally Active Losartan Potassium 25 MG 1 tablet Orally Once a day for 30 day(s) Active SOCIAL HISTORY Tobacco Use: Social History Observation Description Date Details (start date - stop date) Current Smoker NA - NA Sex Assigned At : Social History Observation Description Sex Assigned At Unknown Tobacco Use/Smoking Question Answer Notes Are you a current smoker VITAL SIGNS Blood pressure systolic 138 mm Hg 01/14/20 25 Blood pressure diastolic 84 mm Hg 025 Heart Rate 84 /min 01/13/2025 Height 70 in 01/13/2025 Weight 240 lbs 01/13/2025 BMI 34.43 kg/m2 01/13/2025 Encounters Encounter Location Date [facility] [address] [address] 01/13/2025 Cruzito Rondon Essential hypertensi on I10 ; Overactive bladder N32.81 ; Mixed hyperlipidemia E78.2 ; Chronic bipolar disorder F31.9 ; Ocular migraine G43.109 ; Benign prostatic hyperplasia with lower urinary tract symptoms N40.1 ; Polyarthralgia M25.50 ; Autism spectrum disorder F84.0 ; Vitamin D deficiency E55.9 and Tobacco abuse Z72.0 ASSESSMENTS Encounter Date Diagnosis Assessment Notes Treatment Notes Treatment Clinical Notes Section Notes 01/13/2025 Essential hypertension (ICD-10 - I10) 01/13/2025 Overactive bladder (ICD-10 - N32.81) 01/13/2025 Mixed hyperlipidemia (ICD-10 - E78.2) 01/13/2025 Chronic bipolar disorder (ICD-10 - F31.9) 01/13/2025 Ocular migraine (ICD-10 - G43.109) 01/13/2025 Benign prostatic hyperplasia with lower urinary tract symptoms (ICD-10 - N40.1) 01/13/2025 Polyarthralgia (ICD-10 - M25.50) 01/13/2025 Autism spectrum disorder (ICD-10 - F84.0) 01/13/2025 Vitamin D deficiency (ICD-10 - E55.9) 01/13/2025 Tobacco abuse (ICD-10 - Z72.0) 01/13/2025 Other This chart has been transcribed by a computerized dictation system. There are likely to be multiple sales and marketing intern inaccuracies despite chart review. PLAN OF TREATMENT Medication Medication Name Sig Start Date Stop Date Notes Ezetimibe 10 MG 1 tablet Orally Once a day for 90 Days cloNIDine HCl ER 0.1 MG TAKE 1 TABLET BY MOUTH EVERY DAY IN THE MORNING Oral tiZANidine HCl 2 MG Oral Tamsulosin HCl 0.4 MG 1 capsule Orally Once a day Rosuvastatin Calcium 20 MG 1 tablet Oral ly Once a day for 90 Days Rizatriptan Benzoate 10 MG 1 tablet Orally Once a day Vitamin D3 50 MCG (1999 UT) 1 capsule Orally Once a day Mirtazapine 15 MG 1 tablet at bedtime Orally Once a day Losartan Potassium 25 MG 1 tablet Orally Once a day for 30 day(s) Treatment Notes Assessment Notes Other This chart has been transcribed by a computerized dictation system. There are likely to be multiple sales and marketing intern inaccuracies despite chart review. Next Appt Details Follow Up: 3 Months, Reason: Follow up with Kassandra Provider Name:Cruzito Simmons Cory abdullahi, 07/06/2025 09:15:00 AM, [address] [place] [address], [phone], Progress Notes * Examination Category Sub-Category Detail Notes Category Not es General Examination GENERAL APPEARANCE: in no ac [place] distress, well developed, well nourished HEAD: normocephalic, [...] PERIPHERAL PULSES: normal, 2+ throughou t MUSCULOSKELETAL: Pain with abduction of right shoulder LYMPH NODES: no cervical, axillar y, supraclavicular or inguinal adenopathy PSYCH: cognitive function i ntact, mood/affect full range ORAL CAVITY: mucosa moist, no les ions, palate normal, tongue in midline, well papillated History and Physical Notes * HPI (History of Present Illness) Category Sub-Category Detail Notes Category Not es Symptom(s) 54-year-old mal e patient with history of bipolar disorder, chronic tobacco abuse, is here for a follow-up. Since last visit patient has stopped taking lisinopril due to a dry cough and has started losartan 25 mg daily. He tells me that he no longer has this cough and his urinary urgency and incontinence has improved and he has not needed to take oxybutynin. Today his blood pressure is borderline but he tells me that he did not take his medication yet. I advised him to get a blood pressure instrument ear check his blood pressure at different times of the day, burring in the readings to the office, and bring his instrument for calibration. Patient continues to follow with physical therapy for his right shoulder impingement which he tells me is improving.
--- OUTSIDE RECORDS SUMMARY | 2025-01-31 04:06 | XMS_ITS ---
Author Organization Alcon Castro Address [address] [place] [address] Care Team Providers Care Pocket Operator Name Role Phone Cruzito Rondon Primary Care Provider REASON FOR VISIT Medication MEDICATIONS Medication SIG (Take, Route, Frequency, Duration) Notes Start Date End Date Status Losartan Potassium 25 MG 1 tablet Orally Once a day for 90 Days Active Encounters Encounter Location Date Provider Diagnosis Alcon Castro [address] [address] 02/01/20 Cruzito Rondon PLAN OF TREATMENT Medication Medication Name Sig Start Date Stop Date Notes Losartan Potassium 25 MG 1 tablet Orally Once a day for 90 Days Lisinopril 10 MG TAKE 1 TABLET BY NISA TH EVERY DAY Vitamin D3 50 MCG (1999) TAKE 1 CAPSU LE BY MOUTH EVERY DAY FOR 90 DAYS Next Appt Details Provider Name:Cruzito abdullahi, 07/06/2025 09:15:00 AM, [address] [place] [address], [phone],
--- OUTSIDE RECORDS SUMMARY | 2025-02-07 07:35 | XMS_ITS ---
Author Organization Corybradly Castro Address [address] [place] [phone] Care Team Providers Care Retail Account Executive Name Role Phone Cruzito Rondon Primary Care Provider REASON FOR VISIT refill MEDICATIONS Medication SIG (Take, Route, Fr equency, Duration) Notes Start Date End Date Status Tamsulosin HCl 0.4 MG 1 capsule Orally O nce a day for 90 Days Active Encounters Encounter Location Date Provider Diagnosis Alcon Castro [address] [address] 02/07/2025 Cruzito Rondon Benign prostatic hyperplasia with [...] for 90 Days Next Appt Details Provider Name:Cruzito abdullahi, 07/06/2025 09:15:00 AM, [address] [place] [address], [phone],
--- OUTSIDE RECORDS SUMMARY | 2025-04-13 04:45 | XMS_ITS ---
Author Organization [facility] Address [address] [place] [address] Care Team Providers Care Drawer Waxer Name Role Phone Cruzito Rondon Primary Care Provider ALLERGIES Allergen (clinical drug ingredient) Drug/Non Drug Allergy documented on EMR Reaction Allergy Type Onset Date Status paroxetine Paxil Unknown Drug Allergy Active gabapentin Gabapentin Unknown Drug Allergy Activ e Penicillin Unknown Drug Allergy Active REASON FOR VISIT (IN OFFICE), Follow Up, Sick Visit - allergy symptoms MEDICATIONS Medication SIG (Take, Route, Frequency, Duration) Notes Start Date End Date Status Tamsulosin HCl 0.4 MG 1 capsule Orally O nce a day Active Losartan Potassium 25 MG 1 tablet Orally Once a day for 30 day(s) Active Ezetimibe 10 MG 1 tablet Orally Once a day for 90 Days Active Cholestyramine 4 GM 1 packet mixed with water or non-carbonated drink Orally Once a day for 30 day(s) Active Rosuvastatin Calcium 20 MG 1 tablet Oral ly Once a day for 90 Days Active Loratadine 10 MG 1 tablet Orally Once a day for 90 Days 04/13/2025 Active Vitamin D3 50 MCG (1999) 1 capsule Or ally Once a day Active Rizatriptan Benzoate 10 MG 1 tablet Oral ly Once a day Active FLUoxetine HCl 10 MG 1 capsule Orally On ce a day Active Strattera 40 MG 1 capsule in the mor gaby Orally Once a day Active Ezetimibe 10 MG TAKE 1 TABLET BY NISA TH EVERY DAY for 90 Active Rosuvastatin Calcium 20 MG TAKE 1 TABLET BY MOUTH EVERY DAY for 90 Active Gemtesa 75 MG 1 tablet Orally Once a day Active Fluticasone Propionate 50 MCG/ACT 1 spray in each nostril Nasally Twice a day for 90 Days 04/13/2025 Active Losartan Potassium 25 MG 1 tablet Orally Once a day for 90 Days Active cloNIDine HCl ER 0.1 MG TAKE 1 TABLET BY MOUTH EVERY DAY IN THE MORNING Oral Active Creon 6000-06912 UNIT as directed Orally Active tiZANidine HCl 2 MG Oral Active IMMUNIZATIONS Vaccine Route Administration Date Status Comme nts * FLUARIX TIV PFS IM Intramuscular 04/13/2025 Administered SOCIAL HISTORY Tobacco Use: Social History Observation Description Date Details (start date - stop date) Current Smoker NA - NA Sex Assigned At : Social History Observation Description Sex Assigned At Unknown Tobacco Use/Smoking Question Answer Notes Are you a current smoker PROBLEMS Problem Type ICD Code Onset Dates Problem Status W/U Status Risk SNOMED Code Notes Problem Non-seasonal allergic rhinitis, unspecified trigger (J30.89) Active confirmed 75960460 VITAL SIGNS Blood pressure systolic 118 mm Hg 04/13/20 25 Blood pressure diastolic 70 mm Hg 025 Heart Rate 80 /min 04/13/2025 Height 70 in 04/13/2025 Weight 245 lbs 04/13/2025 BMI 35.15 kg/m2 04/13/2025 Encounters Encounter Location Date Provider Diagnosis [facility], [address] [place] [address] 04/13/2025 Cruzito Rondon Essential hypertensi on I10 ; Overactive bladder N32.81 ; Mixed hyperlipidemia E78.2 ; Chronic bipolar disorder F31.9 ; Ocular migraine G43.109 ; Benign prostatic hyperplasia with lower urinary tract symptoms N40.1 ; Polyarthralgia M25.50 ; Autism spectrum disorder F84.0 ; Vitamin D deficiency E55.9 ; Tobacco abuse Z72.0 ; Encounter for immunization Z23 ; Non-seasonal allergic rhinitis, unspecified trigger J30.89 and Laboratory tests ordered as part of a complete physical exam (CPE) Z00.00 ASSESSMENTS Encounter Date Diagnosis Assessment Notes Treatment Notes Treatment Clinical Notes Section Notes 04/13/2025 Essential hypertension (ICD-10 - I10) 04/13/2025 Overactive bladder (ICD-10 - N32.81) 04/13/2025 Mixed hyperlipidemia (ICD-10 - E78.2) 04/13/2025 Chronic bipolar disorder (ICD-10 - F31.9) 04/13/2025 Ocular migraine (ICD-10 - G43.109) 04/13/2025 Benign prostatic hyperplasia with lower urinary tract symptoms (ICD-10 - N40.1) 04/13/2025 Polyarthralgia (ICD-10 - M25.50) 04/13/2025 Autism spectrum disorder (ICD-10 - F84.0) 04/13/2025 Vitamin D deficiency (ICD-10 - E55.9) 04/13/2025 Tobacco abuse (ICD-10 - Z72.0) 04/13/2025 Encounter for immunization (ICD-10 - Z23) 04/13/2025 Non-seasonal allergic rhinitis, unspecified trigger (ICD-10 - J30.89) 04/13/2025 Laboratory tests ordered as part of a complete physical exam (CPE) (ICD-10 - Z00.00) 04/13/2025 Other This chart has been transcribed by a computerized dictation system. There are likely to be multiple transcribing machine mechanic inaccuracies despite chart review. PLAN OF TREATMENT Medication Medication Name Sig Start Date Stop Date Notes Tamsulosin HCl 0.4 MG 1 capsule Orally O nce a day Losartan Potassium 25 MG 1 tablet Orally Once a day for 30 day(s) Ezetimibe 10 MG 1 tablet Orally Once a day for 90 Days Rosuvastatin Calcium 20 MG 1 tablet Oral ly Once a day for 90 Days Loratadine 10 MG 1 tablet Orally Once a day for 90 Days 04/13/2025 Vitamin D3 50 MCG (2000 UT) 1 capsule Or ally Once a day Rizatriptan Benzoate 10 MG 1 tablet Orally Once a day FLUoxetine HCl 10 MG 1 capsule Orally On ce a day Strattera 40 MG 1 capsule in the mor gaby Orally Once a day Gemtesa 75 MG 1 tablet Orally Once a day Fluticasone Propionate 50 MCG/ACT 1 spray in each nostril Nasally Twice a day for 90 Days 04/13/2025 cloNIDine HCl ER 0.1 MG TAKE 1 TABLET BY MOUTH EVERY DAY IN THE MORNING Oral tiZANidine HCl 2 MG Oral Treatment Notes Assessment Notes Other This chart has been transcribed by a computerized dictation system. There are likely to be multiple transcribing machine mechanic inaccuracies despite chart review. Pending Test Test Name Order Date Urinalysis, Complete-[id number] 04/13/2025 Vitamin D, 61-[id number] 04/13/2025 LP+Non-HDL Cholesterol-[id number] 04/13/2025 TSH+Free [id number] 04/13/2025 Hepatic Function Panel [id number] 2024 PSA Total (Reflex To Free)-[id number] 2024 Comp. Metabolic Panel [id number] 2024 CBC with Diff, Platelet, [id number] 03/22 Next Appt Details Follow Up: 3 Months, Reason: Follow up with [facility] Provider Name:Cruzito Ray bradly, 07/06/2025 09:15:00 AM, [address] [place] [address], [phone], Progress Notes * Examination Category Sub-Category Detail Notes Category Not es General Examination GENERAL APPEARANCE: in no ac [place] distress, well developed, well nourished HEAD: normocephalic, [...] t MUSCULOSKELETAL: normal, full range o f motion, no swelling or deformity LYMPH NODES: no cervical, axillar y, supraclavicular or inguinal adenopathy PSYCH: cognitive function i ntact, mood/affect full range ORAL CAVITY: mucosa moist, no les ions, palate normal, tongue in midline, well papillated History and Physical Notes * HPI (History of Present Illness) Category Sub-Category Detail Notes Category Not es Symptom(s) 55-year-old mal e patient with history of bipolar disorder and chronic tobacco abuse is here for follow up. I updated his medication list with changes from his specialists. He is compliant with his medications without side effects. He tells me that he is having neck injections with [facility] upcoming. His over active bladder symptoms are better controlled since starting Gemtesa from his urologist. His bipolar symptoms are well controlled on current medications. His blood pressure is well controlled on current dose of Losartan. He denies chest pain, palpitations and shortness of breath. He received a flu shot at today's visit. I have ordered appropriate labs for prior to his annual physical.He is complaining of allergy symptoms bothering him. He has itchy eyes, runny nose and intermittent congestion. He has not been taking any allergy medications for some time. I will send for Claritin 10mg daily and Flonase for him to start.
--- NOTE | 2025-04-15 09:08 | A.OFFVIS_ITS ---
Vital Signs 04/15/25 09:13 Height 5 ft 10 in Weight 245 lb 2.464 oz BMI 35.2 BP 147/67 H Blood Pressure Location Lt brachial Position Sitting Pulse 85 Intake Visit Reasons: 6w Intake Note: Patient in office today in follow up of diarrhea. CC: Patient reports seeing mucous in stool sometimes, but other than that states that he is doing pretty good. Patient states would like to try another medication other than cholestyramine. 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 Accompanied by: Self / Same As Patient Allergies cefadroxil (From Duricef) Allergy (Severe, Verified 04/15/25 09:40) Anaphylaxis codeine Allergy (Severe, Verified 04/15/25 09:40) mental change paroxetine (From Paxil) Allergy (Severe, Verified 04/15/25 09:40) Swelling Penicillins Allergy (Severe, Verified 04/15/25 09:40) Hives gabapentin Allergy (Unknown, Verified 04/15/25 09:40) Rage SSRI Allergy (Severe, Uncoded 01/19/25 10:28) Swelling HPI HPI 6w: Details: Assessment & Plan (1) Diarrhea: Code(s): R19.7 - Diarrhea, unspecified Category: Medical Plan Despite the possibility raised by the genetic test and the elevated fecal count Crohn's disease, he had a colonoscopy 01/2024 with no visual evidence or biopsy evidence of inflammatory bowel disease at that time. Although this does not exclude early IBD given the difficulty in diagnosis and the exacerbating remitting nature of the disease, some of these could also be attributed to irritation due to over bile production and post cholecystectomy syndrome. RAST allergy panel was negative. The patient is a 54-year-old male presenting with medication management and bowel movement irregularities. He has difficulty coordinating multiple medications like rosuvastatin, Zetia, Creon, losartan, vitamin D, clonidine, tamsulosin, and because of this he has not yet started the regimen for cholestyramine due to constraint of timing and potential interactions, and his variable wake-up schedule. I spent time educating him that many of these interactions that can read about are true with the laboratory but are not very applicable in real life clinical practice. His bowel issues, which include urgency and irregular movements post-cholecystectomy, significantly impact his daily living. The urgency is especially noted postprandially. There is also a history of urinary urgency, especially prominent in cold temperatures, managed with nocturnal tamsulosin. Overall, the conversation pointed towards difficulties with medication regimen . The patient is advised to avoid high fat meals, specifically saturated fats, and instead consume healthier oils. He was counseled to steer clear of heavy fatty foods like fried items to support digestive health post-cholecystectomy. Dietary management remains [place] for managing his bowel symptoms. Because of the lack of clinical evidence and he is twisting himself into a pretzel over his medication regimen I want him to group please chronic medications into simply a.m. and p.m. reassuring him that it is okay to take many these medications together at the same time. I also think it is more dangerous to his therapy that, with his ADD, he is forgetting doses with this complex schedule then it would be for any absorption issues. This also would clear the way for us to find a way to give him his cholestyramine about an hour or 2 after the medication groupings twice a day to control his stooling. Until I see how he responds to this and we do some repeat labs it would be difficult to say that he has inflammatory bowel disease especially given his normal colonoscopy. All of this was explained to him. Return office visit in 6 weeks TODAY'S VISIT [facility] Medical History Prematurity, weight 500-749 grams, with less than 24 completed weeks of gestation History of sepsis Gallstone pancreatitis Surgical History H/O colonoscopy History of sphincterotomy of sphincter of Oddi History of cholecystectomy Hx of tonsillectomy Hx of tympanostomy tubes Family History Mother Diverticulitis Father Diverticulosis Colitis Paternal Aunt Breast cancer Maternal Aunt Cancer Social History Alcohol intake: current Alcohol intake frequency: holidays/special occasions only Patient Tobacco Use Status: Current everyday Tobacco user Tobacco use type: Cigarette Cigarette Packs Per Day: 1 Cigarettes Per Day: 20.0 Second Hand Smoke Exposure: No Review of Systems Const Denies fatigue, Denies fever(s), Denies night sweats, Denies poor appetite and Denies weight loss Eyes Details: glasses Reports requires corrective lenses ENT Reports Normal hearing present, Denies dental pain, Denies dysphagia, Denies hearing loss, Denies mouth pain, Denies odynophagia, Denies throat swelling, Denies tongue swelling and Reports other (Dentition adequate) Card Reports no additional complaints Resp Reports no additional complaints GI Details: Denies abdominal pain, Denies melena, Reports bloating, Denies hematochezia, Denies constipation, Reports GI cramping, Denies dysphagia, Denies excessive flatus, Denies early satiety, Denies heartburn, Denies diarrhea, Reports loose stools, Denies nausea, Denies odynophagia, Denies vomiting and Denies hematemesis Skin/Breast Denies pruritus, Denies lesions, Denies rash and Denies jaundice Neuro Reports Normal hearing present and Denies Abnormal speech present Endo Denies fatigue Aller/Immun Denies throat swelling and Denies tongue swelling Physical Exam Vital Signs: Last Vital Signs Pulse 85 04/15/25 09:13 BP 147/67 H 04/15/25 09:13 BMI result Body Mass Index 35.2 Const General: cooperative, no acute distress, well developed and well groomed Nutritional Appearance: well nourished and obese Orientation/consciousness: oriented to person, oriented to place and oriented to time Limitations: No language barrier HEENT Head: Yes normocephalic and Yes atraumatic Eyes General: appearance normal, both eyes and all related structures Pupils: Equal, round and reactive pupils present Neck Neck: Yes normal visual inspection and Yes no lymphadenopathy Thyroid: Thyroid normal Resp Effort & Inspection: normal respiratory effort and able to speak in complete sentences Auscultation: clear to auscultation bilaterally Cardio Rate: regular rate Rhythm: regular rhythm Heart sounds: Normal, physiologic split S2 sound present Peripheral pulses: radial pulses present and posterior tibial pulses present GI Inspection: No distended, No Abdominal panniculus present and Yes obesity Palpation (GI): Soft to palpation, nontender, no guarding, not rigid and No hepatosplenomegaly present Percussion: Yes normal to percussion Auscultation: normal bowel sounds Rectal Exam - Male: Yes deferred Skin General skin exam: no rashes or lesions noted, turgor normal, skin not dry, no jaundice, No spider nevi and no striae Rashes: no rashes Nails: normal Neuro General: oriented to person, oriented to place and oriented to time Cranial nerves: Yes Equal, round and reactive pupils present and Yes Normal hearing present Speech: No Abnormal speech present Extrem General: Yes normal to inspection, No clubbing, No cyanosis and No edema Psych Appearance: grossly normal and well kempt Mental Status: mental status grossly normal Speech and movement: Normal speech and movement present Affect: normal affect Attitude: cooperative Thought process: Normal thought process present and not confabulating Thought content: Normal thought content present Insight: Fair insight present (Psych) and Limited insight present (Psych) Judgement: Fair judgement present (Psych) and Limited judgement present (Psych) Assessment & Plan Assessment & Plan (1) Irritable bowel syndrome with both constipation and diarrhea: Code(s): K58.2 - Mixed irritable bowel syndrome Category: Medical Plan His current GI regimen consists of Creon 2 tabs twice a day and cholestyramine was added at the last visit. - The patient is a 55-year-old male presenting with mucus discharge with possible bile salt diarrhea. - Reports consistent use of cholestyramine with no significant difference noted. - Experienced a single day of an abnormal bowel movement that resolved after a few hours. - Family meal schedules interfere with timely medication consumption, emphasizing the need to take medicine with food. - Reports episodes of discomfort when consuming dairy and coffee, suggesting possible lactose intolerance. - we will move on to Carafate and see if this controls his symptoms. He remembers being on Carafate in the past to treat peptic ulcer disease and he seemed to tolerate this medication well. He was educated that he needs to isolate it from other medicines so that it does not block the absorption of the other medications. Return office visit in 4 weeks Medications: New sucralfate (Carafate) 2 grams (2 x 1 gram) PO QNOON 60 tabs 6RF Discontinued cholestyramine (with sugar) 4 gram administer w/meal; avoid other meds within 1hr before or 4-6hr after dose Discontinued Reason: Doctor's Order 4 grams PO BID 60 ea 3RF R19.7 - Diarrhea, unspecified Coding Level of Care Code Est Pt Level 3 (92596) Diagnoses Irritable bowel syndrome with both constipation and diarrhea K58.2
--- OUTSIDE RECORDS SUMMARY | 2025-04-15 09:09 | XMS_ITS | Patient Health Record ---
Author Organization [facility] Address [address] [place] [address] Care Team Providers Care Mercantile Reporter Name Role Phone Cruzito Rondon Primary Care Provider ALLERGIES Allergen (clinical drug ingredient) Drug/Non Drug Allergy documented on EMR Reaction Allergy Type Onset Date Status paroxetine Paxil Unknown Drug Allergy Active gabapentin Gabapentin Unknown Drug Allergy Activ e Penicillin Unknown Drug Allergy Active RESULTS Component Value Reference Range Notes Hepatic Function Panel [id number] Reviewed date:12/25/2024 10:11:26 AM Interpretation: Performing Lab:[facility] [place], [address] [facility], Phone - [phone], Director - Arabellay Notes/Report: Albumin 4.4 3.8-4.9 g/dL Bilirubin, Total 0.5 0.0-1.2 mg/dL Bilirubin, Direct 0.16 0.00-0.40 mg/dL Alkaline Phosphatase 92 44-121 IU/L AST (SGOT) 16 0-40 IU/L ALT (SGPT) 19 0-44 IU/L Lipid Panel-[id number] Reviewed date:12/25/2024 10:11:26 AM Interpretation: Performing Lab:[facility] [place], [address] [facility], [place], Phone - [phone], Director - MDLuisy Notes/Report: Cholesterol, Total 127 100-199 mg/dL Triglycerides 126 0-149 mg/dL HDL Cholesterol 47 >39 mg/dL VLDL Cholesterol Edis 22 5-40 mg/dL LDL Chol Calc ([facility]) 58 0-99 mg/dL LDL Calc Comment: REASON FOR REFERRAL Reason Consultation Diagnosis 1 Polyarthralgia (M25. 50) Referral Organization [facility] Referring Provider First Name Cruzito Referring Provider Last Name Alcon Referring Provider Speciality Internal edicine Referred Provider Specialty Rheumatology General Notes Skylar Frost 06/20 01:18:01 PM EST > Referral sent. , Kandy Ruiz 07/09/2024 10:38:12 AM EST > patient booked for next available with Dr. Payton 12/07/24 @ 2pm Referral Priority Routine Referral Appointment Date 12/07/2024 Reason Consultation Diagnosis 1 Left hip pain (M25.5 52) Referral Organization [facility] Referring Provider First Name Cruzito Referring Provider Last Name Alcon Referring Provider Speciality Internal edicine Referred Provider Specialty Orthopedic S urgery General Notes Skylar Frost 09/18 09:36:59 AM EDT > Faxed paperwork to Christine CHRISTIE Susan 10/11/2024 08:21:42 AM EDT > HAYDENS pt # [id number] on 10/09 LVM for patient to call office and make apptMargot Kirsten 10/12/2024 01:12:05 PM EDT > Letter sent to pt. Referral Priority Routine Reason Consultation Diagnosis 1 Overactive bladder ( N32.81) Referral Organization [facility] Referring Provider First Name Cruzito Referring Provider Last Name Alcon Referring Provider Speciality Internal edicine Referred Provider Specialty Urology General Notes Richa Henderson 09:19:53 AM EDT > Faxed over [facility] form , Richa Henderson 12/31/2024 11:42:35 AM EDT > check faxes patient was scheduled, Richa Henderson 12/31/2024 12:45:22 PM EDT > pt was scheduled 03/30 at 9am with labs faxed Clinical Notes [facility] , Ph: [phone] F: [phone] Referral Priority Urgent Referral Appointment Date 03/30/2025 MEDICATIONS Medication SIG (Take, Route, Frequency, Duration) Notes Start Date End Date Status Loratadine 10 MG 1 tablet Orally Once a day for 90 Days 04/13/2025 Active cloNIDine HCl ER 0.1 MG TAKE 1 TABLET BY MOUTH EVERY DAY IN THE MORNING Oral Active Losartan Potassium 25 MG 1 tablet Orally Once a day for 30 day(s) Active Rosuvastatin Calcium 20 MG TAKE 1 TABLET BY MOUTH EVERY DAY for 90 Active Ezetimibe 10 MG 1 tablet Orally Once a day for 90 Days Active Cholestyramine 4 GM 1 packet mixed with water or non-carbonated drink Orally Once a day for 30 day(s) Active Rosuvastatin Calcium 20 MG 1 tablet Oral ly Once a day for 90 Days Active Gemtesa 75 MG 1 tablet Orally Once a day Active Fluticasone Propionate 50 MCG/ACT 1 spray in each nostril Nasally Twice a day for 90 Days 04/13/2025 Active FLUoxetine HCl 10 MG 1 capsule Orally On ce a day Active Creon 6000-60915 UNIT as directed Orally Active Strattera 40 MG 1 capsule in the mor gaby Orally Once a day Active tiZANidine HCl 2 MG Oral Active Losartan Potassium 25 MG 1 tablet Orally Once a day for 90 Days Active Tamsulosin HCl 0.4 MG 1 capsule Orally O nce a day Active Vitamin D3 50 MCG (1999 UT) 1 capsule Or ally Once a day Active Rizatriptan Benzoate 10 MG 1 tablet Oral ly Once a day Active Ezetimibe 10 MG TAKE 1 TABLET BY NISA TH EVERY DAY for 90 Active IMMUNIZATIONS Vaccine Route Administration Date Status [...] Problem Vitamin D deficiency (E55.9) Active confirmed 47178325 Problem Tobacco abuse (Z72.0) Active confirmed 168810680 Problem Mixed hyperlipidemia (E78.2) Active confirmed 037103562 Problem Overactive bladder (N32.81) Active confirmed 687900061 Problem Essential hypertension (I10) Active confirmed 22952145 Problem Nicotine use disorder (F17.200) Active confirmed 90138795 Problem Ocular migraine (G43.109) Active confirmed 33164775 Problem Benign prostatic hyperplasia with lower urinary tract symptoms (N40.1) Active confirmed 1308010347057 Problem Non-seasonal allergic rhinitis, unspecified trigger (J30.89) Active confirmed 94998635 Problem Chronic bipolar disorder (F31.9) Active confirmed 23439661 Problem Autism spectrum disorder (F84.0) Active confirmed 91002960 VITAL SIGNS Heart Rate 80 /min 04/13/2025 Blood pressure diastolic 70 mm Hg 04/13/2025 Height 70 in 04/13/2025 Blood pressure systolic 118 mm Hg 04/13/2025 Weight 245 lbs 04/13/2025 BMI 35.15 kg/m2 04/13/2025 Encounters Encounter Location Date Provider Diagnosis [address] [address] 06/21/[address] [address] 06/29/2024 Cruzito vanessa Mixed hyperlipidemia E78.2 ; Essential hypertension I10 ; Chronic bipolar disorder F31.9 ; Ocular migraine G43.109 ; Benign prostatic hyperplasia with lower urinary tract symptoms N40.1 ; Vitamin D deficiency E55.9 ; Tobacco abuse Z72.0 and Polyarthralgia M25.[address] [address] 09/29/2024 Cruzito [facility] Mixed hyperlipidemia E78.2 ; Essential hypertension I10 ; Chronic bipolar disorder F31.9 ; Ocular migraine G43.109 ; Benign prostatic hyperplasia with lower urinary tract symptoms N40.1 ; Polyarthralgia M25.50 ; Vitamin D deficiency E55.9 ; Tobacco abuse Z72.0 ; Overactive bladder N32.81 and Left hip pain M25.[address] [address] 09/30/[address] [address] 12/31/2024 Cruzito [facility] Mixed hyperlipidemia E78.2 ; Essential hypertension I10 ; Chronic bipolar disorder F31.9 ; Ocular migraine G43.109 ; Benign prostatic hyperplasia with lower urinary tract symptoms N40.1 ; Polyarthralgia M25.50 ; Overactive bladder N32.81 ; Left hip pain M25.552 ; Vitamin D deficiency E55.9 ; Tobacco abuse Z72.0 ; Other specified cough R05.8 and Autism spectrum disorder F84.[address] [address] 01/13/2025 Cruzito Rondon Essential hypertensi on I10 ; Overactive bladder N32.81 ; Mixed hyperlipidemia E78.2 ; Chronic bipolar disorder F31.9 ; Ocular migraine G43.109 ; Benign prostatic hyperplasia with lower urinary tract symptoms N40.1 ; Polyarthralgia M25.50 ; Autism spectrum disorder F84.0 ; Vitamin D deficiency E55.9 and Tobacco abuse Z72.[address] [address] 01/31/[address] [address] 02/07/2025 Cruzito vanessa Benign prostatic hyperplasia with lower urinary tract symptoms N40.[address] [address] 04/13/2025 Cruzito Rondon Essential hypertensi on I10 [...] Notes Treatment Clinical Notes Section Notes 01/13/2025 Overactive bladder (ICD-10 - N32.81) 01/13/2025 Essential hypertension (ICD-10 - I10) 12/31/2024 Essential hypertension (ICD-10 - I10) 12/31/2024 Mixed hyperlipidemia (ICD-10 - E78.2) 02/07/2025 Benign prostatic hyperplasia with lower urinary tract symptoms (ICD-10 - N40.1) 09/29/2024 Essential hypertension (ICD-10 - I10) 09/29/2024 Mixed hyperlipidemia (ICD-10 - E78.2) 04/13/2025 Overactive bladder (ICD-10 - N32.81) 04/13/2025 Essential hypertension (ICD-10 - I10) 06/29/2024 Mixed hyperlipidemia (ICD-10 - E78.2) 06/29/2024 Essential hypertension (ICD-10 - I10) 01/13/2025 Mixed hyperlipidemia (ICD-10 - E78.2) 12/31/2024 Chronic bipolar disorder (ICD-10 - F31.9) 09/29/2024 Chronic bipolar disorder (ICD-10 - F31.9) 04/13/2025 Mixed hyperlipidemia (ICD-10 - E78.2) 06/29/2024 Chronic bipolar disorder (ICD-10 - F31.9) 12/31/2024 Ocular migraine (ICD-10 - G43.109) 01/13/2025 Chronic bipolar disorder (ICD-10 - F31.9) 09/29/2024 Ocular migraine (ICD-10 - G43.109) 06/29/2024 Ocular migraine (ICD-10 - G43.109) 04/13/2025 Chronic bipolar disorder (ICD-10 - F31.9) 04/13/2025 Ocular migraine (ICD-10 - G43.109) 06/29/2024 Benign prostatic hyperplasia with lower urinary tract symptoms (ICD-10 - N40.1) 09/29/2024 Benign prostatic hyperplasia with lower urinary tract symptoms (ICD-10 - N40.1) 01/13/2025 Ocular migraine (ICD-10 - G43.109) 12/31/2024 Benign prostatic hyperplasia with lower urinary tract symptoms (ICD-10 - N40.1) 04/13/2025 Benign prostatic hyperplasia with lower urinary tract symptoms (ICD-10 - N40.1) 06/29/2024 Vitamin D deficiency (ICD-10 - E55.9) 09/29/2024 Polyarthralgia (ICD-10 - M25.50) 12/31/2024 Polyarthralgia (ICD-10 - M25.50) 01/13/2025 Benign prostatic hyperplasia with lower urinary tract symptoms (ICD-10 - N40.1) 04/13/2025 Polyarthralgia (ICD-10 - M25.50) 01/13/2025 Polyarthralgia (ICD-10 - M25.50) 12/31/2024 Overactive bladder (ICD-10 - N32.81) 09/29/2024 Vitamin D deficiency (ICD-10 - E55.9) 06/29/2024 Tobacco abuse (ICD-10 - Z72.0) Smoking cessation encouraged various treatment options discussed with patient. 12/31/2024 Left hip pain (ICD-10 - M25.552) 01/13/2025 Autism spectrum disorder (ICD-10 - F84.0) 09/29/2024 Tobacco abuse (ICD-10 - Z72.0) 06/29/2024 Polyarthralgia (ICD-10 - M25.50) 04/13/2025 Autism spectrum disorder (ICD-10 - F84.0) 01/13/2025 Vitamin D deficiency (ICD-10 - E55.9) 12/31/2024 Vitamin D deficiency (ICD-10 - E55.9) 04/13/2025 Vitamin D deficiency (ICD-10 - E55.9) 09/29/2024 Overactive bladder (ICD-10 - N32.81) 01/13/2025 Tobacco abuse (ICD-10 - Z72.0) 12/31/2024 Tobacco abuse (ICD-10 - Z72.0) 04/13/2025 Tobacco abuse (ICD-10 - Z72.0) 09/29/2024 Left hip pain (ICD-10 - M25.552) 12/31/2024 Other specified cough (ICD-10 - R05.8) 04/13/2025 Encounter for immunization (ICD-10 - Z23) 12/31/2024 Autism spectrum disorder (ICD-10 - F84.0) 04/13/2025 Non-seasonal allergic rhinitis, unspecified trigger (ICD-10 - J30.89) 04/13/2025 Laboratory tests ordered as part of a complete physical exam (CPE) (ICD-10 - Z00.00) 06/29/2024 Other This chart has been transcribed by a computerized dictation system. There are likely to be multiple communications equipment operator inaccuracies despite chart review. 09/29/2024 Other This chart has been transcribed by a computerized dictation system. There are likely to be multiple communications equipment operator inaccuracies despite chart review. 12/31/2024 Other This chart has been transcribed by a computerized dictation system. There are likely to be multiple communications equipment operator inaccuracies despite chart review. 01/13/2025 Other This chart has been transcribed by a computerized dictation system. There are likely to be multiple communications equipment operator inaccuracies despite chart review. 04/13/2025 Other This chart has been transcribed by a computerized dictation system. There are likely to be multiple communications equipment operator inaccuracies despite chart review. PLAN OF TREATMENT Pending Test Test Name Order Date X ray : Hip, left 09/29/2024 X ray : Femur, left 09/29/2024 GUAIAC, SINGLE SPECIMEN 12/02/2023 EAR IRRIGATION 03/23/2024 25OH VITAMIN D 09/24/2023 CBC (COMPLETE BLOOD COUNT) WITH DIFF 12/2023 COMPREHENSIVE METABOLIC PANEL 09/24/2023 PSA, SCREEN 09/24/2023 THYROID PANEL (TSH, FT4) 09/24/2023 URINALYSIS, COMPLETE 09/24/2023 Urinalysis, Complete-[id number] 04/13/2025 Vitamin D, 94-Rddebcz-028687 04/13/2025 LP+Non-HDL Cholesterol-019969 04/13/2025 TSH+Free [id number] 04/13/2025 Hepatic Function Panel [id number] 2024 PSA Total (Reflex To Free)-[id number] 2024 Lipid Panel-[id number] 12/02/2023 Comp. Metabolic Panel [id number] 2024 CBC with Diff, Platelet, [id number] 03/22 Next Appt Details Provider Name:Cruzito abdullahi, 07/06/2025 09:15:00 AM, [address] [place], [address], Insurance Providers Payer Name Payer Address Payer Phone Subscriber Number Group Number Insured Name Patient Relationship to Insured Coverage Start Date Coverage End Date [facility] [address] [place] [address] [id number] Clifton Juárez Self - patient is the insured MEDICAL (GENERAL) HISTORY Surgical History Surgery Date(Month/Year) Tubes in Ear 1971- Tonsilectomy 1975 Cholecystecomy 2016 Hospitalization History Reason Date(Month/Year) For Above Procedures
--- OUTSIDE RECORDS SUMMARY | 2025-04-15 09:09 | XMS_ITS | Clinical Summary ---
Author Organization [address] [place] [address] Address [address] [place] [address] Phone Care Team Providers Care Size Mixer Name Role Phone Cruzito Rondon MD Primary Care Provider [phone] Allergies Active Allergy Reactions Criticality Noted Date Comments Gabapentin 11/27/2023 Paroxetine Hcl 11/27/2023 Penicillins 11/27/2023 Medications No known medications Encounters Date Type Department Care Team Description 03/18/2025 9:00 AM EDT Office Visit Orthopedic Surgery [place] [address] [phone] Flaco Mccormick DPM Disorder of ligament of [...] Upcoming Encounters Date Type Department Care Team ([facility] st Contact Info) Description 05/17/2025 8:30 AM EDT Office Visit Orthopedic Surgery [facility] [address] [phone] Flaco Mccormick DPM [address] [address] Health Maintenance Due Date Last Done Comments DTaP,Tdap,and Td Vaccines (1 - Tdap) 1991 Pneumococcal Vaccine: 50+ Years (1 of 1 - PCV) 2022 Cholesterol Screening (Lipid Panel) 02/13/2024 Colorectal Cancer Screening: Colonoscopy 02/13/2024 HIV Screening 02/13/2024 Hepatitis C Screening 02/13/2024 Social Influencers of Health Screening 02/13/2024 Zoster Vaccines (2 of 2) 03/29/2024 02/02/2024 Hypertension/CHF/CAD Annual BMP Blood Test 07/07/2024 Depression Screening 07/21/2024 COVID-19 Vaccine (2 - 2024-2 6 season) 2025 02/02/2024 Influenza Vaccine (#1) 2025 03/18/2024 Hepatitis B Vaccines Completed 06/24/2024, 02/02/2024 RSV Immunization Adult Patients Completed 01/31/2025 HIB Vaccines Aged Out No longer eligi [...] patient's age to complete this topic Insurance [facility] [employer] Care Teams Size Mixer Relationship Specialty Start Date End Date Cruzito Rondon MD [address] [place] [address] PCP - General 10/01/23
[2025-04-15 09:13] VITALS: BP 147/67; PULSE 85; BMI 35.2
== END 2025-04-15 09:58 | disposition home or self-care (01) ==
PROVIDERS: PCP Internal Medicine; Visit Provider Nurse Practitioner
DX: K58.2 Mixed irritable bowel syndrome (principal)
CPT/HCPCS: 99213

== ENCOUNTER 2025-05-20 14:37 | Outpatient (AMB) | payer OTHER, SELFPAY ==
--- OUTSIDE RECORDS SUMMARY | 2024-03-23 07:30 | XMS_ITS ---
Author Organization [facility] Address [address] [place] [id number] Care Team Providers Care Mathematician Research Name Role Phone Cruzito Rondon Primary Care Provider ALLERGIES Allergen (clinical drug ingredient) Drug/Non Drug Allergy documented on EMR Reaction Allergy Type Onset Date Status paroxetine Paxil Unknown Drug Allergy Active gabapentin Gabapentin Unknown Drug Allergy Activ e Penicillin Unknown Drug Allergy Active REASON FOR VISIT (IN OFFICE), Follow Up Ear Lavage MEDICATIONS Medication SIG (Take, Route, Frequency, Duration) Notes Start Date End Date Status Rizatriptan Benzoate 10 MG 1 tablet Oral ly Once a day Active Vitamin D3 50 MCG (1999 UT) 1 capsule Or ally Once a day Active Lisinopril 10 MG 1 tablet Orally Once a day Active Mirtazapine 15 MG 1 tablet at bedtime Orally Once a day Active Creon [id number] UNIT as directed Orally Active Ezetimibe 10 MG 1 tablet Orally Once a day for 90 Days Active Tamsulosin HCl 0.4 MG 1 capsule Orally O nce a day 10/13/2023 Active Rosuvastatin Calcium 20 MG 1 tablet Oral ly Once a day for 90 Days Active Lisinopril 10 MG TAKE 1 TABLET BY NISA TH EVERY DAY FOR 90 DAYS for 90 Active SOCIAL HISTORY Tobacco Use: Social History Observation Description Date Details (start date - stop date) Current Smoker NA - NA Sex Assigned At : Social History Observation Description Sex Assigned At Unknown Tobacco Use/Smoking Question Answer Notes Are you a current smoker Alcohol Screen Question Answer Notes Did you have a drink contain ing alcohol in the past year? Yes How often did you have a dri nk containing alcohol in the past year? 2 to 4 times a month (2 points) Points 2 Interpretation Negative PROCEDURES Procedure Date Ordered Date Performed Result Body Sit e EAR IRRIGATION 03/23/2024 N/A Encounters Encounter Location Date Provider Diagnosis [facility], [address] [place] [address] 03/23/2024 Cruzito Rondon Bilateral impacted cerumen H61.23 ASSESSMENTS Encounter Date Diagnosis Assessment Notes Treatment Notes Treatment Clinical Notes Section Notes 03/23/2024 Bilateral impacted cerumen (ICD-10 - H61.23) With patient's verbal consent bilateral ear lavage performed with good results. Over 20 minutes was spent in direct patient contact performing the procedure. M.D. examining the patient before and after the procedure. 03/23/2024 Other This chart has been transcribed by a computerized dictation system. There are likely to be multiple electronic transaction implementer inaccuracies despite chart review. PLAN OF TREATMENT Treatment Notes Assessment Notes Bilateral impacted cerumen With patient' s verbal consent bilateral ear lavage performed with good results. Over 20 minutes was spent in direct patient contact performing the procedure. M.D. examining the patient before and after the procedure. Other This chart has been transcribed by a computerized dictation system. There are likely to be multiple electronic transaction implementer inaccuracies despite chart review. Pending Test Test Name Order Date EAR IRRIGATION 03/23/2024 Next Appt Details Provider Name:Cathy Bettencourt, 07/06/2025 09:15:00 AM, [address] [place] [address], [phone], Progress Notes * Examination Category Sub-Category Detail Notes Category Not es General Examination GENERAL APPEARANCE: in no ac andrey distress, well developed, well nourished EYES: No pallor,, sclera n on-icteric EARS: Bilateral impacted c erumen NECK/THYROID: neck supple, full ra nge of motion, no cervical lymphadenopathy HEART: RRR, no MRGs, no jailene ma LUNGS: clear to auscultatio n bilaterally, normal respiratory effort SKIN: no suspicious lesion s, warm and dry LYMPH NODES: no palpable adenopat hy PSYCH: cognitive function i ntact, mood/affect full range ORAL CAVITY: mucosa moist History and Physical Notes * HPI (History of Present Illness) Category Sub-Category Detail Notes Category Not es Symptom(s) 54-year-old mal e patient with history of bipolar disorder, chronic tobacco abuse, is here for follow-up. Since last visit he has been using Debrox for bilateral impacted cerumen. We performed bilateral ear lavage during the visit. Patient's other chronic conditions are well-controlled on current medications.
--- OUTSIDE RECORDS SUMMARY | 2024-06-21 05:00 | XMS_ITS ---
Author Organization [facility] Address [address] [place] [address] Care Team Providers Care Bowling Ball Finisher Name Role Phone Cruzito Rondon Primary Care Provider [phone] Encounters Encounter Location Date Provider Diagnosis [facility] [address] [id number] 06/21/20 24 Cruzito Rondon PLAN OF TREATMENT Next Appt Details Provider Name:Cathy Bettencourt, 07/06/2025 09:15:00 AM, [address] [place] [address], [phone],
--- OUTSIDE RECORDS SUMMARY | 2024-06-29 03:15 | XMS_ITS ---
Author Organization [facility] Address [address] [place] [phone] Care Team Providers Care Irrigationist Designer Name Role Phone Cruzito Rondon Primary Care Provider [phone] ALLERGIES Allergen (clinical drug ingredient) Drug/Non Drug Allergy documented on EMR Reaction Allergy Type Onset Date Status paroxetine Paxil Unknown Drug Allergy Active gabapentin Gabapentin Unknown Drug Allergy Activ e Penicillin Unknown Drug Allergy Active REASON FOR REFERRAL Reason Consultation Diagnosis 1 Polyarthralgia (M25. 50) Referral Organization [facility] Referring Provider First Name Cruzito Referring Provider Last Name [facility] Referring Provider Speciality Internal M edicine Referred Provider Specialty Rheumatology General Notes Skylar Frost 06/20 01:18:01 PM EST > Referral sent. Gregory Crystal 07/09/2024 10:38:12 AM EST > patient booked for next available with Dr. Payton 12/07/24 @ 2pm Referral Priority Routine Referral Appointment Date 12/07/2024 REASON FOR VISIT (IN OFFICE), Follow Up MEDICATIONS Medication SIG (Take, Route, Frequency, Duration) Notes Start Date End Date Status Tamsulosin HCl 0.4 MG 1 capsule Orally O nce a day Active Creon 6000-01483 UNIT as directed Orally Active Tamsulosin HCl 0.4 MG TAKE 1 CAPSULE BY MOUTH EVERY DAY FOR 90 DAYS for 90 Active Lisinopril 10 MG TAKE 1 TABLET BY NISA TH EVERY DAY for 90 Active Rosuvastatin Calcium 20 MG TAKE 1 TABLET BY MOUTH EVERY DAY FOR 90 DAYS for 90 Active Mirtazapine 15 MG 1 tablet at bedtime Orally Once a day Active Rosuvastatin Calcium 20 MG 1 tablet Oral ly Once a day for 90 Days Active Ezetimibe 10 MG 1 tablet Orally Once a day for 90 Days Active Rizatriptan Benzoate 10 MG 1 tablet Oral ly Once a day Active Vitamin D3 50 MCG (1999) 1 capsule Or ally Once a day Active Lisinopril 10 MG 1 tablet Orally Once a day Active Ezetimibe 10 MG TAKE 1 TABLET BY NISA [...] month (2 points) Points 2 Interpretation Negative VITAL SIGNS Blood pressure systolic 120 mm Hg 06/29/20 24 Blood pressure diastolic 80 mm Hg 024 Heart Rate 80 /min 06/29/2024 Height 70 in 06/29/2024 Weight 235.8 lbs 06/29/2024 BMI 33.83 kg/m2 06/29/2024 Encounters Encounter Location Date [facility] [address] [place] [address] 06/29/2024 Cruzito Rondon Mixed hyperlipidemia E78.2 ; Essential hypertension I10 ; Chronic bipolar disorder F31.9 ; Ocular migraine G43.109 ; Benign prostatic hyperplasia with lower urinary tract symptoms N40.1 ; Vitamin D deficiency E55.9 ; Tobacco abuse Z72.0 and Polyarthralgia M25.50 ASSESSMENTS Encounter Date Diagnosis Assessment Notes Treatment Notes Treatment Clinical Notes Section Notes 06/29/2024 Mixed hyperlipidemia (ICD-10 - E78.2) 06/29/2024 Essential hypertension (ICD-10 - I10) 06/29/2024 Chronic bipolar disorder (ICD-10 - F31.9) 06/29/2024 Ocular migraine (ICD-10 - G43.109) 06/29/2024 Benign prostatic hyperplasia with lower urinary tract symptoms (ICD-10 - N40.1) 06/29/2024 Vitamin D deficiency (ICD-10 - E55.9) 06/29/2024 Tobacco abuse (ICD-10 - Z72.0) Smoking cessation encouraged various treatment options discussed with patient. 06/29/2024 Polyarthralgia (ICD-10 - M25.50) 06/29/2024 Other This chart has been transcribed by a computerized dictation system. There are likely to be multiple neighborhood worker inaccuracies despite chart review. PLAN OF TREATMENT Medication Medication Name Sig Start Date Stop Date Notes Tamsulosin HCl 0.4 MG 1 capsule Orally Once a day Mirtazapine 15 MG 1 tablet at bedtime Orally Once a day Rosuvastatin Calcium 20 MG 1 tablet Oral ly Once a day for 90 Days Ezetimibe 10 MG 1 tablet Orally Once a day for 90 Days Rizatriptan Benzoate 10 MG 1 tablet Orally Once a day Vitamin D3 50 MCG (1999 UT) 1 capsule Orally Once a day Lisinopril 10 MG 1 tablet Orally Once a day Treatment Notes Assessment Notes Tobacco abuse Smoking cessation en couraged various treatment options discussed with patient. Other This chart has been transcribed by a computerized dictation system. There are likely to be multiple neighborhood worker inaccuracies despite chart review. Referrals Referral Date Details 12/07/2024 12/07/2024, Consultjah melo Next Appt Details Follow Up: 3 Months, Reason: Follow-up Provider Name:Cathy Bettencourt, 07/06/2025 09:15:00 AM, [address] [place] [address], [phone], Progress Notes * Examination Category Sub-Category Detail Notes Category Not es General Examination GENERAL APPEARANCE: in no ac [place] distress, well developed, well nourished, in no acute distress, well developed, well nourished HEAD: normocephalic, atrau matic, normocephalic, atraumatic EYES: pupils equal, round, reactive to light and accommodation, pupils equal, round, reactive to light and accommodation THROAT: clear, no erythema, uvula midline, no exudate, clear, no erythema, uvula midline, no exudate NECK/THYROID: neck supple, no thyr omegaly, trachea midline, no carotid bruit, neck supple, no thyromegaly, trachea midline, no carotid bruit HEART: no murmurs, regular rate and rhythm, S1, S2 normal, no murmurs, regular rate and rhythm, S1, S2 normal LUNGS: clear to auscultatio n bilaterally, clear to auscultation bilaterally ABDOMEN: soft, nontender, non distended, no organomegaly , bowel sounds present, soft, nontender, nondistended, no organomegaly , bowel sounds present NEUROLOGIC: alert and oriented x 3, nonfocal, alert and oriented x3, nonfocal SKIN: no suspicious lesion s, warm and dry, no suspicious lesions, warm and dry EXTREMITIES: no clubbing, cyanosi s, or edema, no clubbing, cyanosis, or edema PERIPHERAL PULSES: normal, 2+ throughou t, normal, 2+ throughout MUSCULOSKELETAL: normal, full range o f motion, normal, full range of motion LYMPH NODES: no cervical, axillar y, supraclavicular or inguinal adenopathy, no cervical, axillary, supraclavicular or inguinal adenopathy PSYCH: cognitive function i ntact, mood/affect full range, cognitive function intact, mood/affect full range ORAL CAVITY: mucosa moist, no les ions, palate normal, tongue in midline, well papillated, mucosa moist, no lesions, palate normal, tongue in midline, well papillated PODIATRIC: Bunion right foot, B union right foot History and Physical Notes * HPI (History of Present Illness) Category Sub-Category Detail Notes Category Not es Symptom(s) 54-year-old mal e patient with history of bipolar disorder, chronic tobacco abuse, is here for follow-up. I discussed his lab results with him during the visit is within acceptable range. Patient's blood pressures are controlled. He denies chest pain, palpitations, or shortness of breath. His BPH symptoms are well-controlled on current dose of tamsulosin. His migraine headaches respond well to current dose of [employer]. He tells that he has seen a bookkeeping assistant who wanted him to see a parts casting machine operator for chronic pain in his feet. Our office will mention appointment for him. We have not received any consultation notes from bookkeeping assistant. Consultation Request Notes Referral Date Referring Provider Referred Provider Not es 06/29/2024 Cruzito Rondon , Consultation
--- OUTSIDE RECORDS SUMMARY | 2024-09-29 04:15 | XMS_ITS ---
Author Organization [facility] Address [address] [place] [id number] Care Team Providers Care Electronic Prepress Technician Name Role Phone Cruzito Rondon Primary Care Provider ALLERGIES Allergen (clinical drug ingredient) Drug/Non Drug Allergy documented on EMR Reaction Allergy Type Onset Date Status paroxetine Paxil Unknown Drug Allergy Active gabapentin Gabapentin Unknown Drug Allergy Activ e Penicillin Unknown Drug Allergy Active RESULTS Component Value Reference Range Notes Hepatic Function Panel [id number] Reviewed date:12/25/2024 10:11:26 AM Interpretation: Performing Lab:[facility] [place], [facility], Phone - [phone], Director - MDLuisy Notes/Report: Albumin 4.4 3.8-4.9 g/dL Bilirubin, Total 0.5 0.0-1.2 mg/dL Bilirubin, Direct 0.16 0.00-0.40 mg/dL Alkaline Phosphatase 92 44-121 IU/L AST (SGOT) 16 0-40 IU/L ALT (SGPT) 19 0-44 IU/L Lipid Panel-[id number] Reviewed date:12/25/2024 10:11:26 AM Interpretation: Performing Lab:[facility] [place], [place] [employer] [facility], [place], Phone - [phone], Director - MDSaranya Notes/Report: Cholesterol, Total 127 100-199 mg/dL Triglycerides 126 0-149 mg/dL HDL Cholesterol 47 >39 mg/dL VLDL Cholesterol Edis 22 5-40 mg/dL LDL Chol Calc ([facility]) 58 0-99 mg/dL LDL Calc Comment: REASON FOR VISIT (IN OFFICE), Follow Up, Sick visit worsening of nocturia, Sick visit pain in left hip following a recent fall MEDICATIONS Medication SIG (Take, Route, Frequency, Duration) Notes Start Date End Date Status Tamsulosin HCl 0.4 MG TAKE 1 CAPSULE BY MOUTH EVERY DAY for 90 Active oxyBUTYnin Chloride ER 10 MG 1 tablet Orally Once a day for 90 Days 09/29/2024 Active Creon 6000-98046 UNIT as directed Orally Active Rosuvastatin Calcium 20 MG 1 tablet Oral ly Once a day for 90 Days Active Ezetimibe 10 MG 1 tablet Orally Once a day for 90 Days Active Vitamin D3 50 MCG (1999 UT) 1 capsule Or ally Once a day Active Rizatriptan Benzoate 10 MG 1 tablet Oral ly Once a day Active Mirtazapine 15 MG 1 tablet at bedtime Orally Once a day Active Tamsulosin HCl 0.4 MG 1 capsule Orally O nce a day Active Lisinopril 10 MG 1 tablet Orally Once a day Active Lisinopril 10 MG TAKE 1 TABLET BY NISA TH EVERY DAY for 90 Active Ezetimibe 10 MG TAKE 1 TABLET BY NISA TH EVERY DAY for 90 Active Rosuvastatin Calcium 20 MG TAKE 1 TABLET BY MOUTH EVERY DAY for 90 Active SOCIAL HISTORY Tobacco Use: Social History Observation Description Date Details (start date - stop date) Current Smoker NA - NA Sex Assigned At : Social History Observation Description Sex Assigned At Unknown Tobacco Use/Smoking Question Answer Notes Are you a current smoker PROBLEMS Problem Type ICD Code Onset Dates Problem Status W/U Status Risk SNOMED Code Notes Problem Overactive bladder (N32.81) Active confirmed [id number] VITAL SIGNS Blood pressure systolic 124 mm Hg 09/30/19 25 Blood pressure diastolic 70 mm Hg 025 Heart Rate 78 /min 09/29/2024 Height 70 in 09/29/2024 Weight 241.4 lbs 09/29/2024 BMI 34.63 kg/m2 09/29/2024 Encounters Encounter Location Date Provider Diagnosis [facility] [address] [address] 09/29/2024 Cruzito Rondon Mixed hyperlipidemia E78.2 ; Essential hypertension I10 ; Chronic bipolar disorder F31.9 ; Ocular migraine G43.109 ; Benign prostatic hyperplasia with lower urinary tract symptoms N40.1 ; Polyarthralgia M25.50 ; Vitamin D deficiency E55.9 ; Tobacco abuse Z72.0 ; Overactive bladder N32.81 and Left hip pain M25.552 ASSESSMENTS Encounter Date Diagnosis Assessment Notes Treatment Notes Treatment Clinical Notes Section Notes 09/29/2024 Mixed hyperlipidemia (ICD-10 - E78.2) 09/29/2024 Essential hypertension (ICD-10 - I10) 09/29/2024 Chronic bipolar disorder (ICD-10 - F31.9) 09/29/2024 Ocular migraine (ICD-10 - G43.109) 09/29/2024 Benign prostatic hyperplasia with lower urinary tract symptoms (ICD-10 - N40.1) 09/29/2024 Polyarthralgia (ICD-10 - M25.50) 09/29/2024 Vitamin D deficiency (ICD-10 - E55.9) 09/29/2024 Tobacco abuse (ICD-10 - Z72.0) 09/29/2024 Overactive bladder (ICD-10 - N32.81) 09/29/2024 Left hip pain (ICD-10 - M25.552) 09/29/2024 Other This chart has been transcribed by a computerized dictation system. There are likely to be multiple cement or concrete finishing supervisor inaccuracies despite chart review. PLAN OF TREATMENT Medication Medication Name Sig Start Date Stop Date Notes oxyBUTYnin Chloride ER 10 MG 1 tablet Or ally Once a day for 90 Days 09/29/2024 Rosuvastatin Calcium 20 MG 1 tablet Oral ly Once a day for 90 Days Ezetimibe 10 MG 1 tablet Orally Once a day for 90 Days Vitamin D3 50 MCG (2000 UT) 1 capsule Orally Once a day Rizatriptan Benzoate 10 MG 1 tablet Orally Once a day Mirtazapine 15 MG 1 tablet at bedtime Orally Once a day Tamsulosin HCl 0.4 MG 1 capsule Orally Once a day Lisinopril 10 MG 1 tablet Orally Once a day Treatment Notes Assessment Notes Other This chart has been transcribed by a computerized dictation system. There are likely to be multiple cement or concrete finishing supervisor inaccuracies despite chart review. Pending Test Test Name Order Date X ray : Hip, left 09/29/2024 X ray : Femur, left 09/29/2024 Next Appt Details Follow Up: 3 Months, Reason: Follow-up Provider Name:Cathy Bettencourt, 07/06/2025 09:15:00 AM, [address] [place] [address], [phone], Progress Notes * Examination Category Sub-Category Detail Notes Category Not es General Examination GENERAL APPEARANCE: in no ac [place] distress, well developed, well nourished HEAD: normocephalic, atrau matic EYES: pupils equal, round, reactive to light and accommodation THROAT: clear, no erythema, uvula midline, no exudate NECK/THYROID: neck supple, no thyr omegaly, trachea midline, no carotid bruit HEART: no murmurs, regular rate and rhythm, S1, S2 normal LUNGS: clear to auscultatio n bilaterally ABDOMEN: soft, nontender, non distended, no organomegaly , bowel sounds present NEUROLOGIC: alert and oriented x 3, nonfocal SKIN: no suspicious lesion s, warm and dry EXTREMITIES: no clubbing, cyanosi s, or edema PERIPHERAL PULSES: normal, 2+ throughou t MUSCULOSKELETAL: normal, full range o f motion LYMPH NODES: no cervical, axillar y, supraclavicular or inguinal adenopathy PSYCH: cognitive function i ntact, mood/affect full range ORAL CAVITY: mucosa moist, no les ions, palate normal, tongue in midline, well papillated PODIATRIC: Bunion right foot History and Physical Notes * HPI (History of Present Illness) Category Sub-Category Detail Notes Category Not es Symptom(s) 54-year-old mal e patient with history of bipolar disorder, chronic tobacco abuse, is here for follow-up. Patient is compliant with his medications without any side effects. His chronic migraine headaches over controlled on current medications. His blood pressure is well-controlled. He denies chest pain, palpitation, shortness of breath. Patient complains of worsening of his nocturnal urine despite being on tamsulosin 0.4 mg by mouth daily. I talked to the patient about overactive bladder and started him on oxybutynin ER 10 mg by mouth daily.He also complains of pain left hip after a recent fall. I ordered x-ray left hip and left femur.
--- OUTSIDE RECORDS SUMMARY | 2024-09-30 10:26 | XMS_ITS ---
Author Organization Alcon Castro Address [address] [place] [address] Care Team Providers Care Senior Sales Manager Name Role Phone Cruzito Rondon Primary Care Provider [phone] REASON FOR VISIT Message Encounters Encounter Location Date Provider Diagnosis Alcon Castro [address] [place] [address] 10/01/19 Cruzito Rondon PLAN OF TREATMENT Next Appt Details Provider Name:Cathy Bettencourt, 07/06/2025 09:15:00 AM, [address] [place] [address], [phone],
--- OUTSIDE RECORDS SUMMARY | 2024-12-31 03:45 | XMS_ITS ---
Author Organization [facility] Address [address] [place] [phone] Care Team Providers Care Cement Car Dumper Name Role Phone Cruzito Rondon Primary Care [...] Clinical Notes [facility] , Ph: , F: [phone] Referral Priority Urgent Referral Appointment Date 03/30/2025 [...] TH EVERY DAY for 90 Active Creon [id number] UNIT as directed Orally Active SOCIAL HISTORY [...] Problem Autism spectrum disorder (F84.0) Active confirmed [id number] VITAL SIGNS Blood pressure systolic 130 mm Hg 01/01/20 25 Blood pressure diastolic 76 mm Hg 025 Heart Rate 80 /min 12/31/2024 Height 70 in 12/31/2024 Weight 242 lbs 12/31/2024 BMI 34.72 kg/m2 12/31/2024 Encounters Encounter Location Date Provider Diagnosis [address] [address] 12/31/2024 Cruzito Rondon Mixed hyperlipidemia E78.2 ; [...] system. There are likely to be multiple psychiatry teacher inaccuracies despite chart review. PLAN OF TREATMENT [...] system. There are likely to be multiple psychiatry teacher inaccuracies despite chart review. Referrals Referral Date Details 03/30/2025 03/30/2025, Consulta kameron Angel Appt Details Follow Up: 2 Weeks, Reason: Follow up with Kassandra Provider Name:Cathy Bettencourt, 07/06/2025 09:15:00 AM, [address] [place] [address], [phone], Progress Notes * Examination Category Sub-Category Detail [...] pain. He also tells me that the business support started him on meloxicam but the orthopedic [...]
--- OUTSIDE RECORDS SUMMARY | 2025-01-13 04:00 | XMS_ITS ---
Author Organization [facility] Address [address] [place] [phone] Care Team Providers Care Chisel Mortiser Operator Name Role Phone Cruzito Rondon Primary [...] bedtime Orally Once a day Active Creon [id number] UNIT as directed Orally Active Losartan Potassium [...] 01/13/2025 Encounters [facility]counter [facility] Date [facility] [address] [phone] 01/13/2025 Cruzito Rondon Essential hypertensi on I10 [...] system. There are likely to be multiple organic preparation analyst inaccuracies despite chart review. PLAN OF [...] system. There are likely to be multiple organic preparation analyst inaccuracies despite chart review. Next Appt Details Follow Up: 3 Months, Reason: Follow up with Kassandra Provider Name:Cathy Bettencourt, 07/06/2025 09:15:00 AM, [address] [place] [address], [phone], Progress Notes * Examination Category Sub-Category Detail [...]
--- OUTSIDE RECORDS SUMMARY | 2025-01-31 04:06 | XMS_ITS ---
Author Organization vanessa Castro Address [address] [place] [address] Care Team Providers Care Devops Architect Name Role Phone Cruzito Rondon Primary Care Provider [phone] REASON FOR VISIT Medication MEDICATIONS Medication SIG (Take, Route, Frequency, Duration) Notes Start Date End Date Status Losartan Potassium 25 MG 1 tablet Orally Once a day for 90 Days Active Encounters Encounter Location Date Provider Diagnosis kalyani Gloria [address] [address] 02/01/20 Cruzito Rondon PLAN OF TREATMENT Medication Medication Name Sig Start Date Stop Date Notes Losartan Potassium 25 MG 1 tablet Orally Once a day for 90 Days Lisinopril 10 MG TAKE 1 TABLET BY NISA TH EVERY DAY Vitamin D3 50 MCG (1999) TAKE 1 CAPSU LE BY MOUTH EVERY DAY FOR 90 DAYS Next Appt Details Provider Name:Cathy Bettencourt, 07/06/2025 09:15:00 AM, [address] [place] [address], [phone],
--- OUTSIDE RECORDS SUMMARY | 2025-02-07 07:35 | XMS_ITS ---
[facility] Address [address] [place] [phone] Care Team Providers Care Inorganic Chemistry Teacher Name Role Phone CoryCruzito abdullahi Primary Care Provider REASON FOR VISIT refill MEDICATIONS Medication SIG (Take, Route, Fr equency, Duration) Notes Start Date End Date Status Tamsulosin HCl 0.4 MG 1 capsule Orally O nce a day for 90 Days Active Encounters Encounter Location Date Provider Diagnosis Alcon Castro[address] [address] 02/07/2025 Cruzito Rondon Benign prostatic hyperplasia with lower urinary tract symptoms N40.1 ASSESSMENTS Encounter Date Diagnosis Assessment Notes Treatment Notes Treatment Clinical Notes Section Notes 02/07/2025 Benign prostatic hyperplasia with lower urinary tract symptoms (ICD-10 - N40.1) PLAN OF TREATMENT Medication Medication Name Sig Start Date Stop Date Notes Tamsulosin HCl 0.4 MG 1 capsule Orally O nce a day for 90 Days Next Appt Details Provider Name:Cathy Bettencourt, 07/06/2025 09:15:00 AM, [address] [place] [address], [phone],
--- OUTSIDE RECORDS SUMMARY | 2025-04-13 04:45 | XMS_ITS ---
Author Organization [facility] Address [address] [place] [address] Care Team Providers Care Head Of Visual Merchandising Name Role Phone Cruzito Rondon Primary Care Provider [phone] ALLERGIES Allergen (clinical drug ingredient) Drug/Non Drug [...] DAY IN THE MORNING Oral Active Creon 6000-43008 UNIT as directed Orally Active tiZANidine HCl [...] allergic rhinitis, unspecified trigger (J30.89) Active confirmed [id number] VITAL SIGNS Blood pressure systolic 118 mm Hg 04/13/20 25 Blood pressure diastolic 70 mm Hg 025 Heart Rate 80 /min 04/13/2025 Height 70 in 04/13/2025 Weight 245 lbs 04/13/2025 BMI 35.15 kg/m2 04/13/2025 Encounters Encounter Location Date Provider Diagnosis [facility], [address] [place] [address] 04/13/2025 Cruzito Rondon Essential hypertensi on I10 [...] system. There are likely to be multiple mattress stuffer inaccuracies despite chart review. PLAN OF TREATMENT [...] system. There are likely to be multiple mattress stuffer inaccuracies despite chart review. Pending Test Test Name Order Date Urinalysis, Complete-[id number] 04/13/2025 Vitamin D, 17-Wqrlyeq-[id number] 04/13/2025 LP+Non-HDL Cholesterol-[id number] 04/13/2025 TSH+Free [id number] 04/13/2025 Hepatic Function Panel ([id number] 2024 PSA Total (Reflex To Free)-[id number] 2024 Comp. Metabolic Panel [id number] 2024 CBC with Diff, Platelet, [id number] 03/22 Next Appt Details Follow Up: 3 Months, Reason: Follow up with Cathy Provider Name:Cathy Bettencourt, 07/06/2025 09:15:00 AM, [address] [place] [address], [phone], Progress Notes * Examination Category Sub-Category Detail Notes Category Not es General Examination GENERAL APPEARANCE: in no ac rincon distress, well developed, well nourished HEAD: normocephalic, [...] that he is having neck injections with [facility] upcoming. His over active [...]
--- OUTSIDE RECORDS SUMMARY | 2025-05-17 08:30 | XMS_ITS | Encounter Summary ---
Author Organization [employer] Address [address] [place] [address] Care Team Providers Care Valve Inspector Name Role Phone Cruzito Rondon MD Primary Care Provider [phone] Reason for Visit * Reason Comments Foot Pain Cavus foot, acquired (Primary Dx); Pain in both feet; Metatarsalgia, right foot; Hammertoes of both feet; Disorder of ligament, right ankle Encounter Details Date Type Department Care Team (Late st Contact Info) Description 05/17/2025 8:30 AM EDT Office Visit Orthopedic Surgery - [address] [phone] Flaco Mccormick DPM [address] [place] [phone] Disorder of ligament of ankle, right (Primary Dx); Metatarsalgia of right foot; Metatarsalgia of left foot; Pain in both feet; Hammertoes of both feet Social History Tobacco Use Types Packs/Day Years Used Date Smoking Tobacco: Never Assessed Sex and Gender Information Value Date Recorded Sex Assigned at Not on file Legal Sex Male 11:05 AM EDT Gender Identity Not on file Sexual Orientation Not on file documented as of this encounter Progress Notes * Flaco Mccormick DPM - 05/17/2025 8:30 AM EDT Referring MD: nia Last PCP visit: 02/11/2025 IDENTIFIER: Franck is a 55 y.o. year old male who presents for consultation. CC: Bilateral foot pain HPI: 55-year-old male returns office chief complaint of bilateral foot pain. Patient notes he has been having some increased pain towards the midfoot both the left and right foot. Patient notes that he continues to have some swelling in the ankles from time to time but notes that recently he has been able to bowl more which he has been happy with. Patient notes he continues to have pressure to the distal aspect of the digits when wearing closed toed shoes. Patient is here for evaluation and treatment ROS: GENERAL: Pt denies nausea, fever, vomiting, chills, or shortness of breath. Pt in NAD. CARDIOLOGY: pt denies chest pain, palpitations LUNGS: pt denies shortness of breath MUSCULOSKELETAL: See HPI, otherwise no joint pain or swelling, back pain, or muscle pain. SKIN: see HPI, otherwise no lesions, rash or itching NEURO: No persistent headache, weakness or numbness The remainder of the review of systems is noncontributory PAST MEDICAL HISTORY: There is no problem list on file for this patient. SOCIAL HISTORY: Social History Tobacco Use Smoking status: Not on file Smokeless tobacco: Not on file Substance Use Topics Alcohol use: Not on file ACTIVE MEDICATIONS: No outpatient medications have been marked as taking for the 05/17/25 encounter (Office Visit) Javier Mccormick DPM. ALLERGIES: @ALL@ PHYSICAL EXAM: There were no vitals taken for this visit. PODIATRIC EXAMINATION: GENERAL: Patient appears well nourished, with NAD. VASCULAR: Dorsalis pedis pulses are 2/4 bilaterally and Posterior tibial pulses are 2/4 bilaterally. Capillary filling time within normal limits the digits. No pallor on elevation or rubor on dependency. Positive hair growth. No varicosities. Denies rest pain or claudication pain. NEUROLOGICAL: Sharp/dull sensation intact, protective sensation intact on [place]. Peripheral neuropathies throughout the legs bilaterally ORTHOPEDIC: Good muscle strength 5/5 of all flexors and extensors. Dorsi flexion of ankle ,10 degrees, plantar flexion WNL. No muscle atrophy. Continued noncompensated cavus foot to the right foot. Increased pain on the sesamoid complex on palpation to the right foot. Rigidly contracted hammertoes and increased pressure to the submetatarsal area with anterior cavus. DERMATOLOGICAL:.No masses or skin lesions noted. Normal skin temperature, normal skin turgor. Nailsare elongated dystrophic discolored x 10 with subungual debris BIOMECHANICS: STJ ROM wnl, MTJ ROM wnl, 1st MPJ ROM wnl. IMAGING: Multiple areas of joint space narrowing to the midtarsal joint and along the hammer digitsbilateral feet. Bunion deformity right and left. Increased HAV deformity of the right foot. Cavus foot type with increased calcaneal inclination. Anterior cavus. IMPRESSION: 1. Disorder of ligament of ankle, right 2. Metatarsalgia of right foot 3. Metatarsalgia of left foot 4. Pain in both feet 5. Hammertoes of both feet PLAN: Pt was seen and examined, history reviewed. Patient was educated on different offloading techniques for the rigid contractures of digits 2 through 5. Patient understands that with the cavus foot type he is having increased load to the forefoot when going through ambulatory activity daily. Patient was reeducated on the use of a metatarsal pad as this will offload the forefoot during walking Patient once again educated on the importance of using the drying powder between the toes when wearing close toed shoes throughout the day as he has contractures of the digits which are pushing against each other Patient was educated that he has a cavus foot type which is increasing strain to the lateral aspectof the right foot. Patient understands that he needs to consider using the ASO more often for his bowling or increased activity level Flaco Mccormick DPM documented in this encounter Plan of Treatment Upcoming Encounters Date Type Department Care Team (Late st Contact Info) Description 07/19/2025 8:30 AM EST Office Visit Orthopedic Surgery - [address] [phone] Flaco Mccormick DPM [address] [place] [phone] documented as of this encounter Visit Diagnoses Diagnosis Disorder of ligament of ankle, right- Primary Metatarsalgia of right foot Metatarsalgia of left foot Pain in both feet Hammertoes of both feet documented in this encounter Care Teams Valve Inspector Relationship Specialty Start Date End Date Cruzito Rondon MD [address] [place] [phone] PCP - General 10/01/23 documented as of this encounter
--- NOTE | 2025-05-20 14:52 | A.OFFVIS_ITS ---
Vital Signs 05/20/25 14:53 Height 5 ft 10 in Weight 244 lb 11.41 oz BMI 35.1 BP 126/69 Blood Pressure Location Rt brachial Position Sitting Pulse 93 Intake Visit Reasons: 1 mos FUV. Intake Note: Patient in office today in follow up of mixed IBS. CC: Patient reports that it has been difficulty try to find the right time to take it because it has to be taken 2 hours apart from the other meds. He mentions that he has noticed that when he drinks coffee with milk it does upset his stomach and he needs to go quick to the bathroom and has loose stools. Roof Fitter Required: No Accompanied by: Self / Same As Patient Allergies cefadroxil (From Duricef) Allergy (Severe, Verified 05/20/25 14:57) Anaphylaxis codeine Allergy (Severe, Verified 05/20/25 14:57) mental change paroxetine (From Paxil) Allergy (Severe, Verified 05/20/25 14:57) Swelling Penicillins Allergy (Severe, Verified 05/20/25 14:57) Hives gabapentin Allergy (Unknown, Verified 05/20/25 14:57) Rage SSRI Allergy (Severe, Uncoded 01/19/25 10:28) Swelling HPI HPI 1 mos FUV.: Details: Assessment & Plan (1) Irritable bowel syndrome with both constipation and diarrhea: Code(s): K58.2 - Mixed irritable bowel syndrome Category: Medical Plan His current GI regimen consists of Creon 2 tabs twice a day and cholestyramine was added at the last visit. - The patient is a 55-year-old male presenting with mucus discharge with possible bile salt diarrhea. - Reports consistent use of cholestyramine with no significant difference noted. - Experienced a single day of an abnormal bowel movement that resolved after a few hours. - Family meal schedules interfere with timely medication consumption, emphasizing the need to take medicine with food. - Reports episodes of discomfort when consuming dairy and coffee, suggesting possible lactose intolerance. - we will move on to Carafate and see if this controls his symptoms. He remembers being on Carafate in the past to treat peptic ulcer disease and he seemed to tolerate this medication well. He was educated that he needs to isolate it from other medicines so that it does not block the absorption of the other medications. Return office visit in 4 weeks Medications: New sucralfate (Carafate) 2 grams (2 x 1 gram) PO QNOON 60 tabs 6RF Discontinued cholestyramine (with sugar) 4 gram administer w/meal; avoid other meds within 1hr before or 4-6hr after dose Discontinued Reason: Doctor's Order 4 grams PO BID 60 ea 3RF R19.7 - Diarrhea, unspecified TODAY'S VISIT FORMERLY [facility], 1928–1983 Medical History Prematurity, weight 500-749 grams, with less than 24 completed weeks of gestation History of sepsis Gallstone pancreatitis Surgical History H/O colonoscopy History of sphincterotomy of sphincter of Oddi History of cholecystectomy Hx of tonsillectomy Hx of tympanostomy tubes Family History Mother Diverticulitis Father Diverticulosis Colitis Paternal Aunt Breast cancer Maternal Aunt Cancer Social History Alcohol intake: current Alcohol intake frequency: holidays/special occasions only Patient Tobacco Use Status: Current everyday Tobacco user Tobacco use type: Cigarette Cigarette Packs Per Day: 1 Cigarettes Per Day: 20.0 Second Hand Smoke Exposure: No Review of Systems Const Denies fatigue, Denies fever(s), Denies night sweats, Denies poor appetite, Reports weight gain and Denies weight loss Eyes Details: glasses Reports requires corrective lenses ENT Reports Normal hearing present, Denies dental pain, Denies dysphagia, Denies he aring loss, Denies mouth pain, Denies odynophagia, Denies throat swelling, Denies tongue swelling and Reports other (Dentition adequate) Card Reports no additional complaints Resp Reports no additional complaints GI Details: Denies abdominal pain, Denies melena, Denies bloating, Denies hematochezia, Denies constipation, Denies GI cramping, Denies dysphagia, Denies excessive flatus, Denies early satiety, Reports dyspepsia, Reports heartburn, Denies diarrhea, Reports loose stools, Denies nausea, Denies odynophagia, Denies vomiting and Denies hematemesis Skin/Breast Denies pruritus, Denies lesions, Denies rash and Denies jaundice Neuro Reports Normal hearing present and Denies Abnormal speech present Endo Denies fatigue Aller/Immun Denies throat swelling and Denies tongue swelling Physical Exam Vital Signs: Last Vital Signs Pulse 93 05/20/25 14:53 BP 126/69 05/20/25 14:53 BMI result Body Mass Index 35.1 Const General: cooperative, no acute distress, well developed and well groomed Nutritional Appearance: well nourished and obese Orientation/consciousness: oriented to person, oriented to place and oriented to time Limitations: No language barrier and other limitations HEENT Head: Yes normocephalic and Yes atraumatic Eyes General: appearance normal, both eyes and all related structures Pupils: Equal, round and reactive pupils present Neck Neck: Yes normal visual inspection and Yes no lymphadenopathy Thyroid: Thyroid normal Resp Effort & Inspection: normal respiratory effort and able to speak in complete sentences Auscultation: clear to auscultation bilaterally Cardio Rate: regular rate Rhythm: regular rhythm Heart sounds: Normal, physiologic split S2 sound present Peripheral pulses: radial pulses present and posterior tibial pulses present GI Inspection: No distended, No Abdominal panniculus present and Yes obesity Palpation (GI): Soft to palpation, nontender, no guarding, not rigid and No he patosplenomegaly present Percussion: Yes normal to percussion Auscultation: normal bowel sounds Rectal Exam - Male: Yes deferred Skin General skin exam: no rashes or lesions noted, turgor normal, skin not dry, no jaundice, No spider nevi and no striae Rashes: no rashes Nails: normal Neuro General: oriented to person, oriented to place and oriented to time Cranial nerves: Yes Equal, round and reactive pupils present and Yes Normal hearing present Speech: No Abnormal speech present Extrem General: Yes normal to inspection, No clubbing, No cyanosis and No edema Psych Appearance: grossly normal and well kempt Mental Status: other Speech and movement: Mute speech present Affect: Indifferent affect present Attitude: Avoids eye contact (attititude/behavior) Thought process: not confabulating and Other thought process findings present Thought content: other Insight: Poor insight present (Psych) Judgement: Poor judgement present (Psych) Assessment & Plan Assessment & Plan (1) Multiple food allergies: Comment: PATIENT REPORTS ALLERGIES TO WHEAT, ORANGE JUICE, CHOCOLATE AND SODIUM BENZOATE Code(s): Z91.018 - Allergy to other foods Category: Medical (2) Irritable bowel syndrome with both constipation and diarrhea: Code(s): K58.2 - Mixed irritable bowel syndrome Category: Medical Plan His current GI regimen consists of Creon 2 tabs twice a day and CARAFATE WHICH WE BEGAN in preference over cholestyramine. - Take sucralfate at least 2-3 hours apart from other medications. - Use fiber supplements as directed for digestive health. - Avoid high-processed foods and drinks containing monosodium glutamate. - Follow dietary measures for diverticulitis, avoiding seeds and nuts. - Contact me if symptoms worsen before the scheduled follow-up. - Follow a balanced diet with reduced carbohydrates and increase physical activity. Return office visit in 6 months Coding Level of Care Code Est Pt Level 3 (32646) Diagnoses Multiple food allergies Z91.018 Irritable bowel syndrome with both constipation and diarrhea K58.2
[2025-05-20 14:53] VITALS: BP 126/69; PULSE 93; BMI 35.1
--- OUTSIDE RECORDS SUMMARY | 2025-05-20 15:10 | XMS_ITS | Patient Health Record ---
Author Organization [facility] Address [address] [place] [address] Care Team Providers Care Wound Care Nurse Name Role Phone Cruzito Rondon Primary Care Provider ALLERGIES Allergen (clinical drug ingredient) Drug/Non Drug Allergy documented on EMR Reaction Allergy Type Onset Date Status paroxetine Paxil Unknown Drug Allergy Active gabapentin Gabapentin Unknown Drug Allergy Activ e Penicillin Unknown Drug Allergy Active RESULTS Component Value Reference Range Notes Hepatic Function Panel ([id number] Reviewed date:12/25/2024 10:11:26 AM Interpretation: Performing Lab:[facility] [place], [address] [facility], Phone - [phone], Director - MDLuisy Notes/Report: Albumin 4.4 3.8-4.9 g/dL Bilirubin, Total 0.5 0.0-1.2 mg/dL Bilirubin, Direct 0.16 0.00-0.40 mg/dL Alkaline Phosphatase 92 44-121 IU/L AST (SGOT) 16 0-40 IU/L ALT (SGPT) 19 0-44 IU/L Lipid Panel-[id number] Reviewed date:12/25/2024 10:11:26 AM Interpretation: Performing Lab:[facility] [place], [address] [facility], [place], Phone - [phone], Director - MDLuisy Notes/Report: Cholesterol, Total 127 100-199 mg/dL Triglycerides 126 0-149 mg/dL HDL Cholesterol 47 >39 mg/dL VLDL Cholesterol Edis 22 5-40 mg/dL LDL Chol Calc ([facility]) 58 0-99 mg/dL LDL Calc [...] 08:21:42 AM EDT > HAYDENS pt # [id number] on 10/09 LVM for patient to call [...] Clinical Notes [facility] , Ph: [phone] F: [phone] Referral Priority Urgent Referral Appointment Date 03/30/2025 [...] Orally On ce a day Active Creon 6000-13282 UNIT as directed Orally Active Strattera 40 [...] Problem Vitamin D deficiency (E55.9) Active confirmed 95862103 Problem Tobacco abuse (Z72.0) Active confirmed 614496430 Problem Mixed hyperlipidemia (E78.2) Active confirmed 575690464 Problem Overactive bladder (N32.81) Active confirmed 488513218 Problem Essential hypertension (I10) Active confirmed 75580477 Problem Nicotine use disorder (F17.200) Active confirmed 46309844 Problem Ocular migraine (G43.109) Active confirmed 34547794 Problem Benign prostatic hyperplasia with lower urinary tract symptoms (N40.1) Active confirmed 2239102559879 Problem Non-seasonal allergic rhinitis, unspecified trigger (J30.89) Active confirmed 03787413 Problem Chronic bipolar disorder (F31.9) Active confirmed 72566817 Problem Autism spectrum disorder (F84.0) Active confirmed 02328203 VITAL SIGNS Heart Rate 80 /min 04/13/2025 Blood pressure diastolic 70 mm Hg 04/13/2025 Height 70 in 04/13/2025 Blood pressure systolic 118 mm Hg 04/13/2025 Weight 245 lbs 04/13/2025 BMI 35.15 kg/m2 04/13/2025 Encounters Encounter Location Date Provider Diagnosis [address] [address] 06/21/[address] [address] 06/29/2024 [facility] Mixed hyperlipidemia E78.2 ; Essential hypertension I10 ; Chronic bipolar disorder F31.9 ; Ocular migraine G43.109 ; Benign prostatic hyperplasia with lower urinary tract symptoms N40.1 ; Vitamin D deficiency E55.9 ; Tobacco abuse Z72.0 and Polyarthralgia M25.[address] [address] 09/29/2024 Cruzito [facility] Mixed hyperlipidemia E78.2 ; Essential hypertension I10 ; Chronic bipolar disorder F31.9 ; Ocular migraine G43.109 ; Benign prostatic hyperplasia with lower urinary tract symptoms N40.1 ; Polyarthralgia M25.50 ; Vitamin D deficiency E55.9 ; Tobacco abuse Z72.0 ; Overactive bladder N32.81 and Left hip pain M25.[address] [address] 12/31/2024 Cruzito [facility] Mixed hyperlipidemia E78.2 ; Essential hypertension I10 ; Chronic bipolar disorder F31.9 ; Ocular migraine G43.109 ; Benign prostatic hyperplasia with lower urinary tract symptoms N40.1 ; Polyarthralgia M25.50 ; Overactive bladder N32.81 ; Left hip pain M25.552 ; Vitamin D deficiency E55.9 ; Tobacco abuse Z72.0 ; Other specified cough R05.8 and Autism spectrum disorder F84.[address] [address] 01/13/2025 Cruzito [facility] Essential hypertensi on I10 ; Overactive bladder N32.81 ; Mixed hyperlipidemia E78.2 ; Chronic bipolar disorder F31.9 ; Ocular migraine G43.109 ; Benign prostatic hyperplasia with lower urinary tract symptoms N40.1 ; Polyarthralgia M25.50 ; Autism spectrum disorder F84.0 ; Vitamin D deficiency E55.9 and Tobacco abuse Z72.[address] [address] 04/13/2025 Cruzito [facility] Essential hypertensi on I10 ; Overactive bladder [...] of a complete physical exam (CPE) Z00.[address] [address] 09/30/[address] [address] 01/31/[address] [address] 02/07/2025 Cruzito Rondon Benign prostatic hyperplasia with lower urinary tract symptoms N40.1 ASSESSMENTS Encounter Date Diagnosis Assessment Notes Treatment Notes Treatment Clinical Notes Section Notes 01/13/2025 Essential hypertension (ICD-10 - I10) 01/13/2025 Overactive bladder (ICD-10 - N32.81) 04/13/2025 Overactive bladder (ICD-10 - N32.81) 04/13/2025 Essential hypertension (ICD-10 - I10) 06/29/2024 Mixed hyperlipidemia (ICD-10 - E78.2) 06/29/2024 Essential hypertension (ICD-10 - I10) 12/31/2024 Essential hypertension (ICD-10 - I10) 12/31/2024 Mixed hyperlipidemia (ICD-10 - E78.2) 02/07/2025 Benign prostatic hyperplasia with lower urinary tract symptoms (ICD-10 - N40.1) 09/29/2024 Mixed hyperlipidemia (ICD-10 - E78.2) 09/29/2024 Essential hypertension (ICD-10 - I10) 01/13/2025 Mixed hyperlipidemia (ICD-10 - E78.2) 04/13/2025 Mixed hyperlipidemia (ICD-10 - E78.2) 12/31/2024 Chronic bipolar disorder (ICD-10 - F31.9) 09/29/2024 Chronic bipolar disorder (ICD-10 - F31.9) 06/29/2024 Chronic bipolar disorder (ICD-10 - F31.9) 09/29/2024 Ocular migraine (ICD-10 - G43.109) 04/13/2025 Chronic bipolar disorder (ICD-10 - F31.9) 06/29/2024 Ocular migraine (ICD-10 - G43.109) 12/31/2024 Ocular migraine (ICD-10 - G43.109) 01/13/2025 Chronic bipolar disorder (ICD-10 - F31.9) 09/29/2024 Benign prostatic hyperplasia with lower urinary tract symptoms (ICD-10 - N40.1) 06/29/2024 Benign prostatic hyperplasia with lower urinary tract symptoms (ICD-10 - N40.1) 12/31/2024 Benign prostatic hyperplasia with lower urinary tract symptoms (ICD-10 - N40.1) 04/13/2025 Ocular migraine (ICD-10 - G43.109) 01/13/2025 Ocular migraine (ICD-10 - G43.109) 04/13/2025 Benign prostatic hyperplasia with lower urinary tract symptoms (ICD-10 - N40.1) 01/13/2025 Benign prostatic hyperplasia with lower urinary tract symptoms (ICD-10 - N40.1) 12/31/2024 Polyarthralgia (ICD-10 - M25.50) 09/29/2024 Polyarthralgia (ICD-10 - M25.50) 06/29/2024 Vitamin D deficiency (ICD-10 - E55.9) 04/13/2025 Polyarthralgia (ICD-10 - M25.50) 01/13/2025 Polyarthralgia (ICD-10 - M25.50) 12/31/2024 Overactive bladder (ICD-10 - N32.81) 09/29/2024 Vitamin D deficiency (ICD-10 - E55.9) 06/29/2024 Tobacco abuse (ICD-10 - Z72.0) Smoking cessation encouraged various treatment options discussed with patient. 01/13/2025 Autism spectrum disorder (ICD-10 - F84.0) 04/13/2025 Autism spectrum disorder (ICD-10 - F84.0) 12/31/2024 Left hip pain (ICD-10 - M25.552) 09/29/2024 Tobacco abuse (ICD-10 - Z72.0) 06/29/2024 Polyarthralgia (ICD-10 - M25.50) 04/13/2025 Vitamin D deficiency (ICD-10 - E55.9) 01/13/2025 Vitamin D deficiency (ICD-10 - E55.9) 12/31/2024 Vitamin D deficiency (ICD-10 - E55.9) 09/29/2024 Overactive bladder (ICD-10 - N32.81) 04/13/2025 Tobacco abuse (ICD-10 - Z72.0) 01/13/2025 Tobacco abuse (ICD-10 - Z72.0) 12/31/2024 Tobacco abuse (ICD-10 - Z72.0) 09/29/2024 Left hip pain (ICD-10 - M25.552) 04/13/2025 Encounter for immunization (ICD-10 - Z23) 12/31/2024 Other specified cough (ICD-10 - R05.8) 12/31/2024 Autism spectrum disorder (ICD-10 - F84.0) 04/13/2025 Non-seasonal allergic rhinitis, unspecified trigger (ICD-10 - J30.89) 04/13/2025 Laboratory tests ordered as part of a complete physical exam (CPE) (ICD-10 - Z00.00) 06/29/2024 Other This chart has been transcribed by a computerized dictation system. There are likely to be multiple occasional babysitter inaccuracies despite chart review. 09/29/2024 Other This chart has been transcribed by a computerized dictation system. There are likely to be multiple occasional babysitter inaccuracies despite chart review. 12/31/2024 Other This chart has been transcribed by a computerized dictation system. There are likely to be multiple occasional babysitter inaccuracies despite chart review. 01/13/2025 Other This chart has been transcribed by a computerized dictation system. There are likely to be multiple occasional babysitter inaccuracies despite chart review. 04/13/2025 Other This chart has been transcribed by a computerized dictation system. There are likely to be multiple occasional babysitter inaccuracies despite chart review. PLAN OF TREATMENT Pending Test Test Name Order Date X ray : Hip, left 09/29/2024 X ray : Femur, left 09/29/2024 GUAIAC, SINGLE SPECIMEN 12/02/2023 EAR IRRIGATION 03/23/2024 25OH VITAMIN D 09/24/2023 CBC (COMPLETE BLOOD COUNT) WITH DIFF 12/2023 COMPREHENSIVE METABOLIC PANEL 09/24/2023 PSA, SCREEN 09/24/2023 THYROID PANEL (TSH, FT4) 09/24/2023 URINALYSIS, COMPLETE 09/24/2023 Urinalysis, Complete-[id number] 04/13/2025 Vitamin D, 66-Yanyitq-[id number] 04/13/2025 LP+Non-HDL Cholesterol-[id number] 04/13/2025 TSH+Free [id number] 04/13/2025 Hepatic Function Panel ([id number] 2024 PSA Total (Reflex To Free)-[id number] 2024 Lipid Panel-[id number] 12/02/2023 Comp. Metabolic Panel [id number] 2024 CBC with Diff, Platelet, [id number] 03/22 Next Appt Details Provider Name:Cathy Bettencourt, 07/06/2025 09:15:00 AM, [address] [place], [address], Insurance Providers Payer Name Payer Address Payer Phone Subscriber Number Group Number Insured Name Patient Relationship to Insured Coverage Start Date Coverage End Date [facility] [address] [place] [phone] [id number] Clifton Juárez Self - patient is the insured MEDICAL (GENERAL) HISTORY Surgical History Surgery Date(Month/Year) Tubes in Ear 1971- Tonsilectomy 1975 Cholecystecomy 2015 Hospitalization History Reason Date(Month/Year) For Above Procedures
--- OUTSIDE RECORDS SUMMARY | 2025-05-20 15:10 | XMS_ITS | Clinical Summary ---
Author Organization [address] [place] [address] Address [address] [place] [address] Phone Care Team Providers Care Ballistic Expert Name Role Phone Cruzito Rondon MD Primary Care Provider [phone] Allergies Active Allergy Reactions Criticality Noted Date Comments Gabapentin 11/27/2023 Paroxetine Hcl 11/27/2023 Penicillins 11/27/2023 Medications No known medications Encounters Date Type Department Care Team Description 05/17/2025 8:30 AM EDT Office Visit [facility] [address] [phone] Flaco Mccormick DPM Disorder of ligament of ankle, right (Primary Dx); Metatarsalgia of right foot; Metatarsalgia of left foot; Pain in both feet; Hammertoes of both feet 03/18/2025 9:00 AM EDT Office Visit [facility] [address] [phone] Flaco Mccormick DPM Disorder of ligament of [...] AM EST Office Visit [facility] [place] [address] [place] [phone] Flaco Mccormick, ANDREW [address] [place] [address] Health Maintenance Due Date Last Done Comments Colorectal Cancer Screening: Colonoscopy 1972 DTaP,Tdap,and Td Vaccines (1 - Tdap) 1991 Pneumococcal Vaccine: 50+ Years (1 of 1 - PCV) 2022 Cholesterol Screening (Lipid Panel) 02/13/2024 HIV Screening 02/13/2024 Hepatitis C Screening 02/13/2024 Social Influencers of Health Screening 02/13/2024 Zoster Vaccines (2 of 2) 03/29/2024 02/02/2024 Depression Screening 07/21/2024 COVID-19 Vaccine (2 - [...] patient's age to complete this topic Insurance [facility] [employer] Care Teams Ballistic Expert Relationship Specialty Start Date End Date Cruzito Rondon MD [address] [place] [id number] PCP - General 10/01/23
== END 2025-05-20 15:41 | disposition home or self-care (01) ==
LOC: HO.HGI 14:38
PROVIDERS: PCP Internal Medicine; Visit Provider Nurse Practitioner
DX: Z91.018 Allergy to other foods (principal); K58.2 Mixed irritable bowel syndrome
CPT/HCPCS: 99213